=== PATIENT | female | born 1985 | race Caucasian/White ===

== ENCOUNTER 2019-11-02 12:10 | Outpatient (CLI) | payer OTHER, SELFPAY ==
[2019-11-02 14:41] LABS: Free T4 Free Thyroxine Reflex 0.89 ng/dL (0.78-2.19)
[2019-11-02 15:44] LABS: Total Triiodothyronine (T3) 1.73 NG/ML (0.97-1.69)
== END 2019-11-02 12:11 | disposition home or self-care (01) ==
DX: E03.9 Hypothyroidism, unspecified (principal)
CPT/HCPCS: 36415; 84439; 84443; 84480

== ENCOUNTER 2019-12-25 09:03 | Outpatient (CLI) | payer OTHER, SELFPAY ==
[2019-12-25 09:28] LABS: Basophils Absolute Auto 0.1 K/mm3 (0.0-0.1); Basophils Percent Auto 0.9 % (0.2-1.2); Eosinophils Absolute Auto 0.2 K/mm3 (0-0.3); Eosinophils Percent Auto 1.4 % (0-4.4); Hematocrit 41.9 % (37.0-47.0); Hemoglobin 14.2 g/dL (12.0-15.0); Immature Granulocyte Absolute 0.04 K/mm3 (0.00-0.031); Immature Granulocyte Percent A 0.4 % (0-0.5); Lymphocytes Absolute Auto 3.52 K/mm3 (0.9-3.2); Lymphocytes Percent Auto 31.2 % (18.3-44.2); Mean Corpuscular HGB Conc 33.9 g/dl (32-36); Mean Corpuscular Hemoglobin 28.9 pg (26-34); Mean Corpuscular Volume 85.2 fl (80-100); Mean Platelet Volume 9.5 fl (7.4-10.4); Monocytes Percent Auto 9.2 % (2.6-8.5); Neutrophils Absolute Auto 6.4 K/mm3 (1.3-6.7); Neutrophils Percent Auto 56.9 % (45.5-73.1); Platelet Count Result 228 k/mm3 (150-375); Red Blood Count 4.92 M/mm3 (4.2-5.4); Red Cell Distribution Width 12.7 % (11.5-14.5); White Blood Count 11.3 K/mm3 (4.5-10.0)
[2019-12-25 09:39] LABS: Cholesterol 202 mg/dL (0-200); HDL Direct 36 mg/dL; Magnesium 2.1 mg/dL (1.6-2.3); Triglycerides 351 mg/dL (<150)
[2019-12-25 09:51] LABS: LDL Cholesterol Direct 115 mg/dL
[2019-12-25 10:49] LABS: Folic Acid > 20.0 ng/mL (2.76->20)
[2019-12-27 20:02] LABS: FSH 1.9 mIU/mL (***); LH 2.9 mIU/mL (***); Progesterone 18.1 ng/mL (***)
[2019-12-28 03:41] LABS: Sex Hormone Binding Globulin 45 nmol/L (17-124)
[2019-12-28 04:29] LABS: Thyroid Peroxidase Antibodies <1 IU/mL (<9)
[2019-12-29 08:40] LABS: T3 Reverse 13 ng/dL (8-25)
[2019-12-29 13:27] LABS: Testosterone Free 3.8 pg/mL (0.1-6.4); Testosterone Total 36 ng/dL (2-45)
[2019-12-31 17:28] LABS: Estradiol, Ultrasensitive 104 pg/mL
== END 2019-12-25 09:04 | disposition home or self-care (01) ==
PROVIDERS: Visit Provider Family Medicine
DX: E03.9 Hypothyroidism, unspecified (principal); N99.89 Other postprocedural complications and disorders of genitourinary system; Z98.51 Tubal ligation status; R53.83 Other fatigue; Z79.899 Other long term (current) drug therapy; E66.3 Overweight; R79.89 Other specified abnormal findings of blood chemistry
CPT/HCPCS: 36415; 80061; 82607; 82670; 82746; 83001; 83002; 83735; 84144; 84270; 84402; 84403; 84443; 84482; 85025; 86376

== ENCOUNTER 2019-12-29 16:07 | Outpatient (CLI) | payer OTHER, SELFPAY ==
[2019-12-29 19:21] LABS: Free T4 Free Thyroxine 0.86 ng/mL (0.78-2.19); Vitamin D 25 Hydroxy 44.9 ng/mL
[2020-01-03 05:56] LABS: Triiodothyronine T3 Free 2.7 pg/mL (2.3-4.2)
== END 2019-12-29 16:08 | disposition home or self-care (01) ==
PROVIDERS: Visit Provider Family Medicine
DX: E03.9 Hypothyroidism, unspecified (principal); E66.3 Overweight; R53.83 Other fatigue; R79.89 Other specified abnormal findings of blood chemistry; G25.81 Restless legs syndrome
CPT/HCPCS: 36415; 82306; 84439; 84481

== ENCOUNTER → 2020-01-19 12:03 | Outpatient (CLI) | payer OTHER, SELFPAY ==
--- NOTE | ~2020-01-19 | XR_ITS ---
EXAMINATION: XR wrist RT w scaphoid DATE: 01/19/2020 12:32 INDICATION: Right wrist pain. TECHNIQUE: 5 views of right wrist were obtained. COMPARISON: None. FINDINGS: Bone alignment is normal. No fracture. Joint spaces are well maintained. IMPRESSION: 1. Normal right wrist. Reviewed, dictated and finalized at location A. IMPRESSION: 1. Normal right wrist.
== END ==
PROVIDERS: PCP Family Medicine; Visit Provider Family Medicine
DX: M25.531 Pain in right wrist (principal)
CPT/HCPCS: 73110

== ENCOUNTER 2020-02-02 08:45 | Outpatient (CLI) | payer OTHER, SELFPAY ==
[2020-02-02 09:12] LABS: Basophils Absolute Auto 0.1 K/mm3 (0.0-0.1); Basophils Percent Auto 0.8 % (0.2-1.2); Eosinophils Absolute Auto 0.1 K/mm3 (0-0.3); Eosinophils Percent Auto 1.3 % (0-4.4); Hematocrit 42.9 % (37.0-47.0); Hemoglobin 14.5 g/dL (12.0-15.0); Immature Granulocyte Absolute 0.02 K/mm3 (0.00-0.031); Immature Granulocyte Percent A 0.3 % (0-0.5); Lymphocytes Absolute Auto 2.74 K/mm3 (0.9-3.2); Lymphocytes Percent Auto 36.2 % (18.3-44.2); Mean Corpuscular HGB Conc 33.8 g/dl (32-36); Mean Corpuscular Hemoglobin 28.4 pg (26-34); Mean Corpuscular Volume 84.1 fl (80-100); Mean Platelet Volume 9.6 fl (7.4-10.4); Monocytes Absolute Auto 0.7 K/mm3 (0.1-0.6); Monocytes Percent Auto 9.4 % (2.6-8.5); Neutrophils Absolute Auto 3.9 K/mm3 (1.3-6.7); Platelet Count Result 261 k/mm3 (150-375); Red Cell Distribution Width 12.9 % (11.5-14.5); White Blood Count 7.6 K/mm3 (4.5-10.0)
[2020-02-02 09:28] LABS: Alanine Aminotransferase 21 U/L (4-35); Albumin Level 4.3 g/dL (3.5-5.1); Alkaline Phosphatase 87 U/L (38-126); Aspartate Amino Transferase 27 U/L (14-36); Bilirubin,Total 0.3 mg/dL (0.2-1.3); Blood Urea Nitrogen 11 mg/dL (7-17); Calcium 8.9 mg/dL (8.4-10.2); Carbon Dioxide 22 mmol/L (22-30); Chloride 109 mmol/L (98-107); Cholesterol 153 mg/dL (0-200); Estimated Glomerular Filt Rate > 60; Glucose 89 mg/dL (65-105); HDL Direct 33 mg/dL; Potassium 3.9 mmol/L (3.4-5.0); Sodium 138 mmol/L (137-145); Triglycerides 200 mg/dL (<150)
[2020-02-02 09:38] LABS: LDL Cholesterol Direct 90 mg/dL
[2020-02-02 13:22] LABS: Rheumatoid Factor < 8.6 IU/ML (<12)
[2020-02-02 13:32] LABS: Free T4 Free Thyroxine 1.26 ng/mL (0.78-2.19)
[2020-02-02 14:05] LABS: Thyroid Stimulating Hormone 0.287 uIU/mL (0.465-4.680)
[2020-02-04 21:56] LABS: Triiodothyronine T3 Free 3.7 pg/mL (2.3-4.2)
[2020-02-05 07:26] LABS: T3 Reverse 16 ng/dL (8-25)
[2020-02-05 22:18] LABS: Anti Cyclic Citrullinated Pept <16 Units (<20)
[2020-02-06 05:26] LABS: Thyroid Peroxidase Antibodies <1 IU/mL (<9)
== END 2020-02-02 08:46 | disposition home or self-care (01) ==
PROVIDERS: Visit Provider Family Medicine
DX: E06.3 Autoimmune thyroiditis (principal); Z79.899 Other long term (current) drug therapy
CPT/HCPCS: 36415; 80053; 80061; 84439; 84443; 84481; 84482; 85025; 86038; 86200; 86376; 86430

== ENCOUNTER 2020-02-04 15:39 | Outpatient (CLI) | payer OTHER, SELFPAY ==
--- NOTE | ~2020-02-04 | US_ITS ---
US thyroid INDICATION: Nontoxic goiter. TECHNIQUE: Real-time sonographic images of the thyroid gland were obtained. COMPARISON: No prior studies for comparison. FINDINGS: The right thyroid lobe measures 4.6 x 1 x 1.2 cm. The left thyroid lobe measures 4.3 x 1.2 x 1.2 cm. There is normal echotexture and echogenicity throughout the thyroid gland. No discrete nod ules identified. Normal vascular flow is present. IMPRESSION: 1. Normal thyroid without discrete nodule or abnormal vascularity. Reviewed, dictated and finalized at location A.
== END 2020-02-04 15:40 | disposition home or self-care (01) ==
PROVIDERS: Visit Provider Internal Medicine Endocrinology, Diabetes & Metabolism
DX: E04.9 Nontoxic goiter, unspecified (principal)
CPT/HCPCS: 76536

== ENCOUNTER → 2020-03-07 09:30 | Outpatient (CLI) | payer OTHER, SELFPAY ==
--- NOTE | ~2020-03-07 | XR_ITS ---
XR abdomen/kub 1V 03/07/2020 09:46 Indication: Right flank pain. History of stones. Procedure: KUB Comparison: 06/27/2018 Findings: There are right renal stones. There is a calcification measuring 2-3 mm at the level of L3, suspicious for UPJ stone. There are left pelvic phleboliths. No acute osseous abnormality. Impression: 1: Possible 2-3 mm right UPJ stone. 2: Right nephrolithiasis. Reviewed, dictated and finalized at location B. Impression: 1: Possible 2-3 mm right UPJ stone. 2: Right nephrolithiasis.
== END ==
PROVIDERS: PCP Family Medicine; Visit Provider Family Medicine
DX: N20.0 Calculus of kidney (principal)
CPT/HCPCS: 74018

== ENCOUNTER 2020-03-22 06:52 | Outpatient (CLI) | payer OTHER, SELFPAY ==
--- NOTE | ~2020-03-22 | MR_ITS ---
EXAMINATION: MR wrist RT wo con DATE: 03/22/2020 07:51 INDICATION: Right wrist pain. TECHNIQUE: Magnetic resonance imaging (MRI) of the wrist was performed without intravenous contrast. Sequences performed include coronal T1-weighted FSE, coronal PD-weighted FS FSE, axial PD-weighted FS FSE, axial PD-weighted FSE, sagittal PD-weighted FSE, and sagittal PD-weighted FS FSE. COMPARISON: Right wrist radiographs 01/19/2020 FINDINGS: Intrinsic ligaments: The scapholunate ligament and lunotriquetral ligament are normal. Triangular fibrocartilage complex (TFCC): There is a partial tear of triangular fibrocartilage at its distal surface. There is soft tissue nichelle a around the ulnar styloid. Extensor wrist: There is mild tendinopathy of the extensor carpi ulnaris. The other extensor tendons are normal. Flexor wrist: The flexor tendons are normal. Median nerve is normal. Guyon's canal: Ulnar nerve is normal. Bones/other: Bone alignment is normal. No fracture. Bone marrow signal intensity is normal. IMPRESSION: 1. Partial tear of triangular fibrocartilage at its distal surface. 2. Mild tendinopathy of the extensor carpi ulnaris. Reviewed, dictated and finalized at location A.
== END 2020-03-22 06:53 | disposition home or self-care (01) ==
PROVIDERS: PCP Family Medicine; Visit Provider Family Medicine
DX: M25.539 Pain in unspecified wrist (principal); S63.501A Unspecified sprain of right wrist, initial encounter
CPT/HCPCS: 73221

== ENCOUNTER 2020-04-14 16:36 | Outpatient (CLI) | payer OTHER, SELFPAY ==
[2020-04-14 17:26] LABS: Basophils Absolute Auto 0.1 K/mm3 (0.0-0.1); Basophils Percent Auto 0.8 % (0.2-1.2); Eosinophils Absolute Auto 0.1 K/mm3 (0-0.3); Eosinophils Percent Auto 0.9 % (0-4.4); Hematocrit 41.9 % (37.0-47.0); Hemoglobin 14.2 g/dL (12.0-15.0); Immature Granulocyte Absolute 0.03 K/mm3 (0.00-0.031); Immature Granulocyte Percent A 0.3 % (0-0.5); Lymphocytes Absolute Auto 2.96 K/mm3 (0.9-3.2); Lymphocytes Percent Auto 28.9 % (18.3-44.2); Mean Corpuscular HGB Conc 33.9 g/dl (32-36); Mean Corpuscular Hemoglobin 28.3 pg (26-34); Mean Corpuscular Volume 83.6 fl (80-100); Mean Platelet Volume 9.7 fl (7.4-10.4); Monocytes Absolute Auto 0.8 K/mm3 (0.1-0.6); Monocytes Percent Auto 8.2 % (2.6-8.5); Neutrophils Absolute Auto 6.2 K/mm3 (1.3-6.7); Neutrophils Percent Auto 60.9 % (45.5-73.1); Platelet Count Result 263 k/mm3 (150-375); Red Blood Count 5.01 M/mm3 (4.2-5.4); Red Cell Distribution Width 12.2 % (11.5-14.5); White Blood Count 10.2 K/mm3 (4.5-10.0)
[2020-04-14 17:40] LABS: Alanine Aminotransferase 14 U/L (4-35); Albumin Level 4.1 g/dL (3.5-5.1); Alkaline Phosphatase 93 U/L (38-126); Anion Gap 9 mmol/L (8-16); Aspartate Amino Transferase 19 U/L (14-36); Bilirubin,Total < 0.1 mg/dL (0.2-1.3); Blood Urea Nitrogen 15 mg/dL (7-17); Calcium 8.9 mg/dL (8.4-10.2); Carbon Dioxide 24 mmol/L (22-30); Chloride 106 mmol/L (98-107); Estimated Glomerular Filt Rate > 60; Glucose 91 mg/dL (65-105); Potassium 3.7 mmol/L (3.4-5.0); Sodium 139 mmol/L (137-145)
[2020-04-14 18:10] LABS: Free T4 Free Thyroxine 0.88 ng/mL (0.78-2.19); Vitamin D 25 Hydroxy 47.6 ng/mL
[2020-04-14 18:11] LABS: Thyroid Stimulating Hormone 0.293 uIU/mL (0.465-4.680)
[2020-04-14 18:46] LABS: Folic Acid 7.1 ng/mL (2.76->20)
[2020-04-20 05:33] LABS: Triiodothyronine T3 Free 2.4 pg/mL (2.3-4.2)
[2020-04-20 08:03] LABS: T3 Reverse 15 ng/dL (8-25)
== END 2020-04-14 16:37 | disposition home or self-care (01) ==
PROVIDERS: PCP Family Medicine; Visit Provider Family Medicine
DX: E03.9 Hypothyroidism, unspecified (principal); E66.3 Overweight; G47.33 Obstructive sleep apnea (adult) (pediatric); R00.2 Palpitations; R53.83 Other fatigue; Z82.62 Family history of osteoporosis; Z79.899 Other long term (current) drug therapy; G25.81 Restless legs syndrome
CPT/HCPCS: 36415; 80053; 82306; 82607; 82746; 84439; 84443; 84481; 84482; 85025

== ENCOUNTER 2020-04-26 11:42 | Outpatient (CLI) | payer OTHER, SELFPAY ==
--- NOTE | ~2020-04-26 | MR_ITS ---
EXAMINATION: MR brain/brain stem wo/w con DATE: 04/26/2020 12:56 INDICATION: Hypothyroidism. Headache. TECHNIQUE: Magnetic resonance imaging (MRI) of the brain and brainstem was performed without and with 14 mL MultiHance intravenous contrast. Whole-brain sequences included sagittal T1-weighted FSE, axia l diffusion-weighted FS EPI, axial T2*-weighted GRE, axial T2-weighted FLAIR Propeller, and axial T2- weighted Propeller. Small cpdlh-dh-ywqu sequences included sagittal and coronal T1-weighted FSE cente red at the pituitary. Postcontrast sequences included small wxtvz-nm-sfce coronal T1-weighted FSE in a time course and sagittal T1-weighted FSE and whole-brain axial T1-weighted FSE. Apparent diffusion coefficient (ADC) maps were created. COMPARISON: None. FINDINGS: The pituitary is normal in size with height of 4 mm and concave superior margin. The infund ibulum is at the midline. There is no intracranial hemorrhage, acute infarction, or abnormal intracra nial mass lesion. The ventricles are normal in size. There is a trace right mastoid effusion. The par anasal sinuses are clear. The orbits are normal. IMPRESSION: 1. Normal brain. Normal pituitary. Reviewed, dictated and finalized at location A.
== END 2020-04-26 11:43 | disposition home or self-care (01) ==
PROVIDERS: PCP Family Medicine; Visit Provider Family Medicine
DX: E03.9 Hypothyroidism, unspecified (principal); E34.9 Endocrine disorder, unspecified
CPT/HCPCS: 70553; A9577

== ENCOUNTER 2020-05-24 09:05 | Outpatient (CLI) | payer OTHER, SELFPAY ==
[2020-05-24 09:22] LABS: Basophils Absolute Auto 0.1 K/mm3 (0.0-0.1); Basophils Percent Auto 0.7 % (0.2-1.2); Eosinophils Absolute Auto 0.1 K/mm3 (0-0.3); Eosinophils Percent Auto 1.2 % (0-4.4); Hematocrit 41.4 % (37.0-47.0); Immature Granulocyte Absolute 0.02 K/mm3 (0.00-0.031); Immature Granulocyte Percent A 0.2 % (0-0.5); Lymphocytes Absolute Auto 3.24 K/mm3 (0.9-3.2); Lymphocytes Percent Auto 33.4 % (18.3-44.2); Mean Corpuscular HGB Conc 33.8 g/dl (32-36); Mean Corpuscular Hemoglobin 28.5 pg (26-34); Mean Corpuscular Volume 84.3 fl (80-100); Mean Platelet Volume 9.2 fl (7.4-10.4); Monocytes Absolute Auto 0.9 K/mm3 (0.1-0.6); Monocytes Percent Auto 8.8 % (2.6-8.5); Neutrophils Absolute Auto 5.4 K/mm3 (1.3-6.7); Neutrophils Percent Auto 55.7 % (45.5-73.1); Platelet Count Result 256 k/mm3 (150-375); Red Blood Count 4.91 M/mm3 (4.2-5.4); Red Cell Distribution Width 12.6 % (11.5-14.5); White Blood Count 9.7 K/mm3 (4.5-10.0)
[2020-05-24 12:23] LABS: Add Urine Microscopic? NO; Appearance Urine Clear (Clear); Bilirubin Urine Negative (Negative); Blood Urine Negative (Negative); Color Urine Yellow (Yellow); Glucose Urine UA Negative (Negative); Ketones Urine Negative (Negative); Leukocyte Esterase Ur Negative LEU/UL (Negative); Nitrate Urine Negative (Negative); Protein Urine Negative (Negative); Specific Grav Ur 1.013 (1.001-1.035); Urobilinogen Urine Negative mg/dL (<2.0)
[2020-05-24 12:28] LABS: Alanine Aminotransferase 14 U/L (4-35); Albumin Level 4.1 g/dL (3.5-5.1); Alkaline Phosphatase 97 U/L (38-126); Anion Gap 10 mmol/L (8-16); Aspartate Amino Transferase 21 U/L (14-36); Bilirubin,Total 0.3 mg/dL (0.2-1.3); Blood Urea Nitrogen 7 mg/dL (7-17); Calcium 9.4 mg/dL (8.4-10.2); Carbon Dioxide 25 mmol/L (22-30); Chloride 105 mmol/L (98-107); Estimated Glomerular Filt Rate > 60; Glucose 88 mg/dL (65-105); Potassium 4.3 mmol/L (3.4-5.0); Sodium 140 mmol/L (137-145)
[2020-05-24 12:45] LABS: Free T4 Free Thyroxine 0.93 ng/mL (0.78-2.19)
[2020-05-24 12:58] LABS: Thyroid Stimulating Hormone 0.399 uIU/mL (0.465-4.680)
[2020-05-27 07:32] LABS: FSH 8.9 mIU/mL (***); Triiodothyronine T3 Free 2.9 pg/mL (2.3-4.2)
== END 2020-05-24 09:06 | disposition home or self-care (01) ==
LOC: ANHLAB 09:07
PROVIDERS: PCP Family Medicine; Visit Provider Family Medicine
DX: E03.9 Hypothyroidism, unspecified (principal); E66.3 Overweight; R00.2 Palpitations; R53.83 Other fatigue; G25.81 Restless legs syndrome; Z79.899 Other long term (current) drug therapy
CPT/HCPCS: 36415; 80053; 81003; 83001; 84439; 84443; 84481; 85025

== ENCOUNTER 2020-05-27 09:19 | Outpatient (CLI) | payer OTHER, SELFPAY | END 2020-05-27 09:20 | disposition home or self-care (01) | LOC: ANHAUDIO 09:21 | PROVIDERS: PCP Family Medicine; Visit Provider Otolaryngology | DX: H93.11 Tinnitus, right ear (principal); H93.8X1 Other specified disorders of right ear; H91.93 Unspecified hearing loss, bilateral | CPT/HCPCS: 92557; 92567 ==

== ENCOUNTER 2020-06-10 08:01 | Outpatient (CLI) | payer OTHER, SELFPAY ==
--- NOTE | ~2020-06-10 | MM_ITS ---
EXAMINATION: MM screening stevie BI w josué HISTORY: Screening TECHNIQUE: Craniocaudal and mediolateral oblique 3-D tomosynthesis images were obtained and synthetic 2-D images were generated. CAD analysis was submitted and interpreted. COMPARISON: Comparison to multiple prior studies sequentially, with oldest reviewed study dated 01/18. BREAST PARENCHYMAL COMPOSITION: The breasts are heterogeneously dense, which may obscure small masses . FINDINGS: There is no evidence of suspicious mass, calcification, or architectural distortion to sugg est malignancy in either breast. There has been no suspicious interval change. IMPRESSION: 1. No mammographic evidence of malignancy. 2. Recommend routine screening mammography in one year. BI-RADS Category 1: Negative Reviewed, dictated and finalized at location A.
== END 2020-06-10 08:02 | disposition home or self-care (01) ==
LOC: ANHIMG 08:03
PROVIDERS: PCP Family Medicine; Visit Provider Obstetrics & Gynecology
DX: Z12.31 Encounter for screening mammogram for malignant neoplasm of breast (principal)
CPT/HCPCS: 77063; 77067

== ENCOUNTER 2020-07-15 08:23 | Outpatient (CLI) | payer OTHER, SELFPAY ==
[2020-07-15 08:35] LABS: Basophils Absolute Auto 0.1 K/mm3 (0.0-0.1); Basophils Percent Auto 0.9 % (0.2-1.2); Eosinophils Absolute Auto 0.1 K/mm3 (0-0.3); Hematocrit 42.3 % (37.0-47.0); Immature Granulocyte Absolute 0.02 K/mm3 (0.00-0.031); Immature Granulocyte Percent A 0.3 % (0-0.5); Lymphocytes Absolute Auto 2.68 K/mm3 (0.9-3.2); Lymphocytes Percent Auto 34.9 % (18.3-44.2); Mean Corpuscular HGB Conc 33.1 g/dl (32-36); Mean Corpuscular Hemoglobin 28.1 pg (26-34); Mean Corpuscular Volume 84.8 fl (80-100); Mean Platelet Volume 9.3 fl (7.4-10.4); Monocytes Absolute Auto 0.6 K/mm3 (0.1-0.6); Monocytes Percent Auto 8.1 % (2.6-8.5); Neutrophils Absolute Auto 4.2 K/mm3 (1.3-6.7); Neutrophils Percent Auto 54.8 % (45.5-73.1); Platelet Count Result 255 k/mm3 (150-375); Red Blood Count 4.99 M/mm3 (4.2-5.4); Red Cell Distribution Width 12.2 % (11.5-14.5); White Blood Count 7.7 K/mm3 (4.5-10.0)
[2020-07-15 12:40] LABS: Cholesterol 181 mg/dL (0-200); HDL Direct 35 mg/dL; Triglycerides 374 mg/dL (<150)
[2020-07-15 12:51] LABS: LDL Cholesterol Direct 96 mg/dL
[2020-07-15 13:02] LABS: Vitamin D 25 Hydroxy 48.4 ng/mL
[2020-07-15 13:46] LABS: Folic Acid 13.4 ng/mL (2.76->20)
[2020-07-15 15:16] LABS: Free T4 Free Thyroxine 1.19 ng/mL (0.78-2.19)
[2020-07-15 16:35] LABS: Alanine Aminotransferase 14 U/L (4-35); Albumin Level 4.3 g/dL (3.5-5.1); Alkaline Phosphatase 91 U/L (38-126); Anion Gap 11 mmol/L (8-16); Aspartate Amino Transferase 21 U/L (14-36); Bilirubin,Total 0.3 mg/dL (0.2-1.3); Blood Urea Nitrogen 10 mg/dL (7-17); Calcium 9.5 mg/dL (8.4-10.2); Carbon Dioxide 22 mmol/L (22-30); Chloride 108 mmol/L (98-107); Estimated Glomerular Filt Rate > 60; Glucose 92 mg/dL (65-105); Potassium 4.3 mmol/L (3.4-5.0); Sodium 141 mmol/L (137-145)
[2020-07-21 12:20] LABS: Triiodothyronine T3 Free 2.8 pg/mL (2.3-4.2)
[2020-07-26 07:43] LABS: T3 Reverse 17 ng/dL (8-25)
== END 2020-07-15 08:24 | disposition home or self-care (01) ==
PROVIDERS: PCP Family Medicine; Visit Provider Family Medicine
DX: Z51.81 Encounter for therapeutic drug level monitoring (principal); Z79.899 Other long term (current) drug therapy; G25.81 Restless legs syndrome; R53.83 Other fatigue; E78.5 Hyperlipidemia, unspecified; E03.9 Hypothyroidism, unspecified
CPT/HCPCS: 36415; 80053; 80061; 82306; 82607; 82746; 84439; 84443; 84481; 84482; 85025

== ENCOUNTER 2020-08-23 14:00 | Outpatient (RCR) | payer OTHER, SELFPAY ==
--- NOTE | 2020-07-18 17:46 | PTOPEVAL ---
PHYSICAL THERAPY EVALUATION AND PLAN OF CARE Thank you for referring Sammi Carnes to [facility].? The patient is scheduled to be seen for therapy? 2x/week for 4 weeks. Please review, sign, date and return this plan of care REINIER. I agree with and certify that the following plan of care is medically necessary. Referring Physician Date Attending Provider: Elkin Esquivel, DO Evaluation Information Problem Diagnosis cervicalgia, migraines Onset chronic Subjective Information reports chronic headaches even Query Text:As Reported By Patient/ as she was growing up. She Family has neck pain with the migraines and she does have increased tension and what she would call a tension headache with migraine. States that once the migraine starts, it is worse every day until it stops and it will cause photo and phonophobia. States that her eyes will be affected and her balance will even be affected when her tension and migraines are bad. She does have a regular daily headache besides the migraine. Pain Assessment Timing of Pain Assessment Self Report Pain Assessment Bilateral Spine, Cervical Reported Pain Level 3 Pain Description Aching,Dull,Tightness Pain Frequency Chronic,Continuous Lowest Pain Intensity 1 Greatest Pain Intensity 9 Other Pain Aggravating Factors sleeping with the wrong pillow Pain Score Pain Score 3: Self Report Interventions Used Interventions Used By Clinicians Dry Needling,Exercise,Manual Therapy Techniques Cervical and Lumbar ROM Cervical ROM Cervical Flexion (0-60) 26 Query Text:Active in Degrees Cervical Extension (0-70) 60 Query Text:Active in Degrees Cervical Rotation Right (0-90) 61 Query Text:Active in Degrees Cervical Rotation Left (0-90) 60 Query Text:Active in Degrees Upper Extremity Range of Motion General Upper Extremity Range of Motion Gross Upper Extremity Range of Motion decreased end range elevation Comments and abduction; excessive shoulder pronation and winging with shoulder internal rotation behind the back Upper Extremity Muscle Strength Testing General Upper Extremity Strength Gross Upper Extremity Strength Comments bilateral flexion/abduction: 4 -/5
--- NOTE | 2020-08-04 12:26 | PCPTNOTE ---
Patient called & cancelled scheduled appointment this date due to work.
--- NOTE | 2020-08-23 14:30 | PTOPEVAL ---
PHYSICAL THERAPY DISCHARGE NOTE Thank you for referring Sammi Carnes to [facility].? Please review, sign, date and return this plan of care REINIER. I agree with and certify that the following plan of care is medically necessary. Referring Physician Date Attending Provider: Elkin Esquivel, DO Discharge Diagnosis cervicalgia, migraines Onset chronic Subjective Information reports that previously she Query Text:As Reported By Patient/ was experiencing almost a Family constant headaches and it is much improved from that with only occasional headaches. She feels like she is able to continue with her HEP and continue progressing to improve symptoms. Self Report Pain Assessment Bilateral Spine, Cervical Reported Pain Level 1 Pain Description Aching,Dull,Tightness Pain Frequency Chronic,Continuous Pain Score Pain Score 1: Self Report Interventions Used Interventions Used By Clinicians Exercise,Manual Therapy Techniques Cervical and Lumbar ROM Cervical ROM Cervical Flexion (0-60) 45 Query Text:Active in Degrees Cervical Extension (0-70) 60 Query Text:Active in Degrees Cervical Rotation Right (0-90) 61 Query Text:Active in Degrees Cervical Rotation Left (0-90) 60 Query Text:Active in Degrees Upper Extremity Range of Motion General Upper Extremity Range of Motion Gross Upper Extremity Range of Motion decreased end range elevation Comments and abduction; improved shoulder IR behind back Upper Extremity Muscle Strength Testing General Upper Extremity Strength Gross Upper Extremity Strength Comments bilateral flexion/abduction: 4/5 IR/ER at neutral: 5/5 Muscle Length Testing Latissmus Dorsi Muscle Length (R) Moderate Tightness,(L) Moderate Tightness Upper Trapezius Muscle Length (R) Mild Tightness,(L) Mild Tightness Levaetor Scapulae Muscle Length (R) Mild Tightness,(L) Mild Tightness Shoulder Internal Rotators Muscle Length (R) Mild Tightness,(L) Mild Tightness Pectoralis Major Muscle Length (R) Mild Tightness,(L) Mild Tightness Pectoralis Minor Muscle Length (R) Mild Tightness,(L) Mild Tightness Posture Sitting Position Head/C-Spine Posture Extended Thoracic Spine Posture Increased Kyphosis Shoulder Posture (L) Rounded,(R) Rounded Scapula Posture (L)
== END 2020-10-03 08:02 | disposition home or self-care (01) ==
LOC: ANHPT 14:00
PROVIDERS: PCP Family Medicine; Visit Provider Family Medicine
DX: G43.809 Other migraine, not intractable, without status migrainosus (principal); M54.2 Cervicalgia
CPT/HCPCS: 97110; 97140; 97161

== ENCOUNTER 2020-08-30 08:35 | Outpatient (CLI) | payer OTHER, SELFPAY ==
[2020-08-30 13:05] LABS: Alanine Aminotransferase 19 U/L (4-35); Albumin Level 4.2 g/dL (3.5-5.1); Alkaline Phosphatase 86 U/L (38-126); Anion Gap 8 mmol/L (8-16); Aspartate Amino Transferase 26 U/L (14-36); Bilirubin,Total 0.4 mg/dL (0.2-1.3); Blood Urea Nitrogen 7 mg/dL (7-17); Calcium 9.4 mg/dL (8.4-10.2); Carbon Dioxide 29 mmol/L (22-30); Chloride 102 mmol/L (98-107); Estimated Glomerular Filt Rate > 60; Glucose 92 mg/dL (65-105); Potassium 4.2 mmol/L (3.4-5.0); Sodium 139 mmol/L (137-145)
[2020-08-30 13:28] LABS: Free T4 Free Thyroxine 1.19 ng/mL (0.78-2.19)
[2020-08-30 13:41] LABS: Thyroid Stimulating Hormone 0.562 uIU/mL (0.465-4.680)
[2020-08-30 14:15] LABS: Folic Acid 14.7 ng/mL (2.76->20)
[2020-09-03 14:54] LABS: Triiodothyronine T3 Free 3.2 pg/mL (2.3-4.2)
[2020-09-04 05:00] LABS: Thyroid Peroxidase Antibodies <1 IU/mL (<9)
== END 2020-08-30 08:36 | disposition home or self-care (01) ==
LOC: ANHLAB 08:37
PROVIDERS: PCP Family Medicine; Visit Provider Internal Medicine Endocrinology, Diabetes & Metabolism
DX: E06.3 Autoimmune thyroiditis (principal); R53.83 Other fatigue
CPT/HCPCS: 36415; 80053; 82607; 82746; 84439; 84443; 84481; 86376

== ENCOUNTER 2020-10-17 12:24 | Outpatient (CLI) | payer OTHER, SELFPAY ==
--- NOTE | ~2020-10-17 | XR_ITS ---
XR mandible min 4V DATE: 10/17/2020 12:45 INDICATION: Right temporal mandibular joint pain TECHNIQUE: 4 views COMPARISON: None FINDINGS: No fracture or dislocation or bone destruction of the mandible is evident. IMPRESSION: No significant abnormality Reviewed, dictated and finalized at location A. OUT MARKER IMPRESSION: No significant abnormality
== END 2020-10-17 12:25 | disposition home or self-care (01) ==
PROVIDERS: PCP Family Medicine; Visit Provider Family Medicine
DX: M26.629 Arthralgia of temporomandibular joint, unspecified side (principal)
CPT/HCPCS: 70110

== ENCOUNTER 2020-10-20 08:53 | Outpatient (CLI) | payer OTHER, SELFPAY ==
--- NOTE | ~2020-10-20 | CT_ITS ---
EXAMINATION: CT soft tissue neck wo con EXAM DATE: 10/20/2020 09:26 INDICATION: K11.20 - Sialoadenitis, unspecified. TECHNIQUE: Spiral CT of the neck was performed without contrast. Axial, coronal and sagittal images were reviewed. The dose-length product (DLP) for this examination was 498.86 mGy-cm. The exposure was tailored according to patient size (auto mA exposure control), and iterative reconstruction (ASIR ) was used as additional dose reduction technique. There is no prior study for comparison. FINDINGS: The thyroid gland is unremarkable. The submandibular and parotid glands are symmetric, no sialolithiasis. There is no cervical lymphadenopathy. There are no masses identified. The supe rior mediastinum is unremarkable. The airway is unremarkable. Parapharyngeal and pre-glottic fat planes are preserved. Limited evaluation of cervical vessels on this noncontrast study. The orbit s are unremarkable. Visualized sinuses and mastoid air cells are well aerated. Lung apices are cl ear. There is mild cervical arthropathy. IMPRESSION: Normal CT neck examination. Reviewed, dictated and finalized at location B. SETTER IMPRESSION: Normal CT neck examination.
--- NOTE | ~2020-10-20 | CT_ITS ---
EXAMINATION: CT abdomen wo con EXAM DATE: 10/20/2020 09:26 INDICATION: R10.9 - Unspecified abdominal pain . TECHNIQUE: Spiral CT of the abdomen was performed without contrast. Axial, coronal and sagittal diana ges were reviewed. The dose-length product (DLP) for this examination was 245.76 mGy-cm. The exposu re was tailored according to patient size (auto mA exposure control), and iterative reconstruction (A SIR) was used as additional dose reduction technique. There is no prior study for comparison. FINDINGS: The liver, spleen, adrenal glands and pancreas are unremarkable. There are cholecystectomy clips. Cluster of right inferior calyceal stones measuring about 6 mm. Patulous right renal pelvis i s unchanged compared to prior study. No hydroureter along its imaged proximal course. There is no ret roperitoneal lymphadenopathy. Small umbilical fat-containing hernia. The stomach and small bowel are unremarkable. There is expected amount of colonic stool. No free i ntraperitoneal gas. The heart is normal in size. There are no pericardial or pleural effusions. T here are small left lower lobe peripheral groundglass opacities, likely acute pneumonitis, acute infe ctious process and possibly COVID pneumonia. There are no osteoblastic or osteolytic lesions identif ied. IMPRESSION: 1. Small regions left basilar groundglass peripheral opacity likely acute infection. Possible COVID pneumonia. 2. Right calyceal stones. 3. Small umbilical hernia. I discussed left basilar pneumonia with Niyah in the office of the ordering clinician Elkin quintana DO at 10/20/2020 09:59 COMPUTER TECH. Reviewed, dictated and finalized at location B. UTER TECH IMPRESSION: 1. Small regions left basilar groundglass peripheral opacity likely acute infe ction. Possible COVID pneumonia. 2. Right calyceal stones. 3. Small umbilical hernia. I discussed left basilar pneumonia with Niyah in the office of the ordering cl injacinda Esquivel DO at 10/20/2020 09:59 COMPUTER TECH.
== END 2020-10-20 08:54 | disposition home or self-care (01) ==
LOC: ANHIMG 08:59
PROVIDERS: PCP Family Medicine; Visit Provider Family Medicine
DX: K42.9 Umbilical hernia without obstruction or gangrene (principal); N20.0 Calculus of kidney
CPT/HCPCS: 70490; 74150

== ENCOUNTER 2020-10-25 09:01 | Outpatient (CLI) | payer OTHER, SELFPAY ==
--- NOTE | ~2020-10-25 | MR_ITS ---
EXAMINATION: MR chest wo/w con DATE: 10/25/2020 10:49 INDICATION: Chronic left-sided brachial plexus pain including left-sided chest, shoulder, arm and jim d numbness.. TECHNIQUE: Magnetic resonance imaging (MRI) of the brachial plexus was performed without and with 14 mL Multihance intravenous contrast. Sequences included axial, sagittal and coronal T1-weighted FSE, coronal T2-weighted FS FSE, coronal and sagittal fluid sensitive FSE STIR and postcontrast axial, sag ittal and coronal T1-weighted FS FSE. COMPARISON: Neck CT dated 10/20/2020 FINDINGS: 10 degrees levoscoliosis measured between T1 and T6. Mild cervical spondylosis with negligible centra l canal stenosis resulting from mild disc bulges at C3-C4 through C6-C7. Cord signal in the cervical and visualized upper thoracic spine is normal. No neural foraminal stenosis. The cervical transverse processes are normal with no cervical ribs. The left brachial plexus appears unremarkable extending f rom the roots through the trunks in the scalene triangle and in the more distal divisions and cords w ith normal signal with no abnormal thickening or enhancement. No impinging or infiltrating masses or fluid collections identified along the course of the brachial plexus. Normal sized and appearing conf luent nodes at the neck and left axilla. The glenohumeral and acromioclavicular joints appear normal. Normal muscle bulk and signal at the left shoulder girdle. Thyroid is normal. Visualized superior me diastinum is unremarkable. IMPRESSION: 1. Normal brachial plexus with no abnormal masses or other impinging lesions. 2. Mild upper thoracic levoscoliosis and mild cervical spondylosis. Reviewed, dictated and finalized at location B. UNT PROCESSOR
[2020-10-25 09:49] LABS: Estimated Glomerular Filt Rate > 60
== END 2020-10-25 09:02 | disposition home or self-care (01) ==
PROVIDERS: PCP Family Medicine; Visit Provider Family Medicine
DX: G54.0 Brachial plexus disorders (principal); M54.12 Radiculopathy, cervical region; M41.84 Other forms of scoliosis, thoracic region; M47.812 Spondylosis without myelopathy or radiculopathy, cervical region
CPT/HCPCS: 71552; A9577

== ENCOUNTER 2020-10-31 10:50 | Outpatient (CLI) | payer OTHER, SELFPAY ==
--- NOTE | ~2020-10-31 | XR_ITS ---
EXAMINATION: XR chest 2V DATE: 10/31/2020 10:59 INDICATION: Pneumonia, unspecified organism TECHNIQUE: PA and lateral views of the chest are obtained. COMPARISON: 04/08/2019; CT, 10/20/2020 FINDINGS: The lungs are free of acute opacities. There is no pleural effusion or pneumothorax. The ca rdiomediastinal silhouette is normal. The visualized bones and soft tissues are unremarkable. Cholecy stectomy clips are noted in the right upper quadrant. IMPRESSION: 1. No acute cardiopulmonary abnormality. Reviewed, dictated and finalized at location A. DRINIER MACHINE OPERATOR
== END 2020-10-31 10:51 | disposition home or self-care (01) ==
PROVIDERS: PCP Family Medicine; Visit Provider Family Medicine
DX: E03.9 Hypothyroidism, unspecified (principal); G43.809 Other migraine, not intractable, without status migrainosus; G89.29 Other chronic pain; J18.9 Pneumonia, unspecified organism; K11.20 Sialoadenitis, unspecified; K42.9 Umbilical hernia without obstruction or gangrene; K59.00 Constipation, unspecified; M25.512 Pain in left shoulder; M26.621 Arthralgia of right temporomandibular joint; M54.12 Radiculopathy, cervical region; M62.00 Separation of muscle (nontraumatic), unspecified site; R10.9 Unspecified abdominal pain; R53.83 Other fatigue
CPT/HCPCS: 71046

== ENCOUNTER 2020-11-02 08:43 | Outpatient (CLI) | payer OTHER, SELFPAY ==
[2020-11-02 09:18] LABS: Basophils Absolute Auto 0.1 K/mm3 (0.0-0.1); Eosinophils Absolute Auto 0.1 K/mm3 (0-0.3); Eosinophils Percent Auto 1.5 % (0-4.4); Hematocrit 40.6 % (37.0-47.0); Hemoglobin 13.6 g/dL (12.0-15.0); Immature Granulocyte Absolute 0.01 K/mm3 (0.00-0.031); Immature Granulocyte Percent A 0.1 % (0-0.5); Lymphocytes Absolute Auto 2.85 K/mm3 (0.9-3.2); Lymphocytes Percent Auto 36.1 % (18.3-44.2); Mean Corpuscular HGB Conc 33.5 g/dl (32-36); Mean Corpuscular Hemoglobin 28.3 pg (26-34); Mean Corpuscular Volume 84.6 fl (80-100); Mean Platelet Volume 9.5 fl (7.4-10.4); Monocytes Absolute Auto 0.8 K/mm3 (0.1-0.6); Monocytes Percent Auto 9.7 % (2.6-8.5); Neutrophils Absolute Auto 4.1 K/mm3 (1.3-6.7); Neutrophils Percent Auto 51.6 % (45.5-73.1); Platelet Count Result 226 k/mm3 (150-375); Red Cell Distribution Width 12.7 % (11.5-14.5); White Blood Count 7.9 K/mm3 (4.5-10.0)
[2020-11-02 10:40] LABS: Alanine Aminotransferase 26 U/L (4-35); Albumin Level 3.9 g/dL (3.5-5.1); Alkaline Phosphatase 83 U/L (38-126); Anion Gap 4 mmol/L (8-16); Aspartate Amino Transferase 26 U/L (14-36); Bilirubin,Total 0.2 mg/dL (0.2-1.3); Blood Urea Nitrogen 11 mg/dL (7-17); Calcium 8.9 mg/dL (8.4-10.2); Carbon Dioxide 30 mmol/L (22-30); Chloride 105 mmol/L (98-107); Estimated Glomerular Filt Rate > 60; Glucose 85 mg/dL (65-105); Iron 53 ug/dL (37-170); Sodium 139 mmol/L (137-145)
[2020-11-02 10:47] LABS: Percent Iron Saturation 20 % (20-50)
[2020-11-02 10:50] LABS: Erythrocyte Sedimentation Rate 20 mm/hr (0-20)
[2020-11-02 10:52] LABS: Add Urine Microscopic? NO
[2020-11-02 10:58] LABS: Potassium 4.4 mmol/L (3.4-5.0); Vitamin D 25 Hydroxy 35.1 ng/mL
[2020-11-02 11:00] LABS: Color Urine Yellow (Yellow)
[2020-11-02 11:01] LABS: Appearance Urine Clear (Clear); Specific Grav Ur 1.015 (1.001-1.035)
[2020-11-02 11:02] LABS: Blood Urine Negative (Negative); Glucose Urine UA Negative (Negative); Ketones Urine Negative (Negative); Protein Urine Negative (Negative)
[2020-11-02 11:03] LABS: Bilirubin Urine Negative (Negative); Leukocyte Esterase Ur Negative LEU/UL (Negative); Nitrate Urine Negative (Negative); Urobilinogen Urine 0.2 mg/dL (<2.0)
[2020-11-02 11:11] LABS: Thyroid Stimulating Hormone 0.497 uIU/mL (0.465-4.680)
[2020-11-02 11:46] LABS: Folic Acid 12.8 ng/mL (2.76->20)
[2020-11-02 12:28] LABS: Cholesterol 154 mg/dL (0-200); HDL Direct 37 mg/dL; Triglycerides 358 mg/dL (<150)
[2020-11-02 12:29] LABS: Rheumatoid Factor < 8.6 IU/ML (<12)
[2020-11-02 12:34] LABS: D Dimer 0.27 ug/mL (<0.48)
[2020-11-02 12:36] LABS: LDL Cholesterol Direct 78 mg/dL
[2020-11-02 12:37] LABS: Troponin I < 0.012 ng/mL (0.000-0.034)
[2020-11-05 04:30] LABS: CA-125 6 U/mL (<35)
[2020-11-05 06:35] LABS: FSH 3.4 mIU/mL (***); Progesterone 3.7 ng/mL (***)
[2020-11-06 11:51] LABS: T3 Reverse 13 ng/dL (8-25)
[2020-11-06 13:24] LABS: Testosterone Free 6.8 pg/mL (0.1-6.4); Testosterone Total 47 ng/dL (2-45)
[2020-11-09 18:27] LABS: Estradiol, Ultrasensitive 105 pg/mL
== END 2020-11-02 08:44 | disposition home or self-care (01) ==
PROVIDERS: PCP Family Medicine; Visit Provider Family Medicine
DX: Z00.00 Encounter for general adult medical examination without abnormal findings (principal); J18.9 Pneumonia, unspecified organism; K59.00 Constipation, unspecified; K42.9 Umbilical hernia without obstruction or gangrene; M54.12 Radiculopathy, cervical region; M25.512 Pain in left shoulder; G89.29 Other chronic pain; K11.20 Sialoadenitis, unspecified; R10.9 Unspecified abdominal pain; M62.00 Separation of muscle (nontraumatic), unspecified site; G43.809 Other migraine, not intractable, without status migrainosus; M26.621 Arthralgia of right temporomandibular joint; E03.9 Hypothyroidism, unspecified; R53.83 Other fatigue; Z79.899 Other long term (current) drug therapy
CPT/HCPCS: 36415; 80053; 80061; 81003; 82306; 82607; 82670; 82746; 83001; 83540; 83550; 84144; 84402; 84403; 84443; 84481; 84482; 84484; 85025; 85380; 85652; 86038; 86140; 86304; 86430

== ENCOUNTER 2020-11-18 16:00 | Outpatient (CLI) | payer OTHER, SELFPAY ==
--- NOTE | ~2020-11-18 | US_ITS ---
EXAMINATION: US pelvic complete w TV EXAM DATE: 11/18/2020 16:46 INDICATION: Menorrhagia, heavy periods. TECHNIQUE: Pelvic transabdominal and transvaginal sonogram was performed. There are multiple graysca le and Doppler images available for interpretation. Comparison is made to prior examination from 04/09. FINDINGS: Uterus measures uterus measures 9.3 x 4.5 x 4.1 cm, is retroverted and morphologically nor mal. Endometrial stripe measures 3 mm, within normal limits. There is no free pelvic fluid. Right adnexa: The ovary measures 2.0 x 2.7 x 2.0 cm with multiple small peripheral follicles. Ovarian vascular flow confirmed. Left adnexa: The ovary measures 2.2 x 2.6 x 1.6 cm with multiple small peripheral follicles. Ovarian vascular flow confirmed. IMPRESSION: 1. Ovaries normal in size but with multiple small peripheral follicles, possible polycystic ovarian syndrome. Reviewed, dictated and finalized at location G. IMPRESSION: 1. Ovaries normal in size but with multiple small peripheral follicles, possib le polycystic ovarian syndrome.
== END 2020-11-18 16:01 | disposition home or self-care (01) ==
PROVIDERS: PCP Family Medicine; Visit Provider Obstetrics & Gynecology
DX: N92.0 Excessive and frequent menstruation with regular cycle (principal)
CPT/HCPCS: 76830; 76856

== ENCOUNTER 2021-03-03 08:24 | Outpatient (CLI) | payer OTHER, SELFPAY ==
[2021-03-03 11:02] LABS: Alanine Aminotransferase 20 U/L (4-35); Albumin Level 4.1 g/dL (3.5-5.1); Alkaline Phosphatase 90 U/L (38-126); Anion Gap 10 mmol/L (8-16); Aspartate Amino Transferase 23 U/L (14-36); Bilirubin,Total 0.3 mg/dL (0.2-1.3); Blood Urea Nitrogen 14 mg/dL (7-17); Calcium 9.3 mg/dL (8.4-10.2); Carbon Dioxide 25 mmol/L (22-30); Chloride 104 mmol/L (98-107); Estimated Glomerular Filt Rate > 60; Glucose 83 mg/dL (65-105); Potassium 4.5 mmol/L (3.4-5.0); Sodium 139 mmol/L (137-145)
[2021-03-03 11:16] LABS: Free T4 Free Thyroxine 1.16 ng/mL (0.78-2.19)
[2021-03-03 11:32] LABS: Thyroid Stimulating Hormone 0.627 uIU/mL (0.465-4.680)
[2021-03-07 02:39] LABS: Insulin Level Total 20.3 uIU/mL (<=19.6)
[2021-03-07 13:29] LABS: Triiodothyronine T3 Free 3.1 pg/mL (2.3-4.2)
[2021-03-08 12:58] LABS: Testosterone Total 47 ng/dL (2-45)
[2021-03-08 14:03] LABS: DHEA-Sulfate 150 mcg/dL (23-266)
== END 2021-03-03 08:25 | disposition home or self-care (01) ==
LOC: ANHLAB 08:33
PROVIDERS: PCP Family Medicine; Visit Provider Internal Medicine Hematology & Oncology
DX: E03.9 Hypothyroidism, unspecified (principal); E28.2 Polycystic ovarian syndrome
CPT/HCPCS: 36415; 80053; 82627; 83525; 84402; 84403; 84439; 84443; 84481

== ENCOUNTER 2021-05-30 09:49 | Outpatient (CLI) | payer OTHER, SELFPAY ==
--- NOTE | ~2021-05-30 | US_ITS ---
EXAMINATION: US pelvic complete w TV EXAM DATE: 05/30/2021 10:32 INDICATION: Pelvic and perineal pain. TECHNIQUE: Pelvic transabdominal and transvaginal sonogram was performed. There are multiple graysca le and Doppler images available for interpretation. Comparison is made to prior examination from 11/18. FINDINGS: Uterus measures 5.9 x 4.6 x 4.1 cm, is retroverted and morphologically normal. Endometria l stripe measures 6 mm, within normal limits. There is no free pelvic fluid. Right adnexa: The ovary measures 1.9 x 2.5 x 2.8 cm and is morphologically normal. Ovarian vascular f low confirmed. Left adnexa: The ovary measures 1.8 x 1.6 x 3.1 cm and is morphologically normal. Ovarian vascular fl ow confirmed. IMPRESSION: 1. Unremarkable pelvic ultrasound exam. Reviewed, dictated and finalized at location A.
== END 2021-05-30 09:50 | disposition home or self-care (01) ==
LOC: ANHIMG 09:54
PROVIDERS: PCP Physician Assistant Medical; Visit Provider Obstetrics & Gynecology
DX: R10.2 Pelvic and perineal pain (principal)
CPT/HCPCS: 76830; 76856

== ENCOUNTER 2021-07-18 14:19 | Outpatient (CLI) | payer OTHER, SELFPAY ==
--- NOTE | ~2021-07-18 | CT_ITS ---
EXAMINATION: CT soft tissue neck w con DATE: 07/18/2021 15:00 INDICATION: Localized swelling, mass, and lump in neck. TECHNIQUE: Computed tomography (CT) of the neck was performed with 75 mL Omnipaque-350 intravenous co ntrast. Automated exposure control and iterative reconstruction technique were employed. The dose-kelvin gth product was 455.43 mGy-cm. COMPARISON: Neck CT 10/20/2020 FINDINGS: There are no pathologically enlarged lymph nodes. The cervical carotid arteries and vertebr al arteries are normal. The pharyngeal mucosal space is normal. The paranasal sinuses are clear. Ther e is a trace right mastoid effusion. There is mild cervical spondylosis. IMPRESSION: 1. No abnormal mass or lymphadenopathy. Reviewed, dictated and finalized at location B. SPERSON JEWELRY
== END 2021-07-18 14:20 | disposition home or self-care (01) ==
LOC: ANHIMG 14:24
PROVIDERS: PCP Physician Assistant Medical; Visit Provider Internal Medicine Endocrinology, Diabetes & Metabolism
DX: R22.1 Localized swelling, mass and lump, neck (principal)
CPT/HCPCS: 70491; Q9967

== ENCOUNTER 2021-07-27 08:00 | Outpatient (CLI) | payer OTHER, SELFPAY ==
--- NOTE | ~2021-07-27 | MMUS_ITS ---
EXAMINATION: MM diagnostic stevie BI w josué, US breast BI complete HISTORY: Right breast lump TECHNIQUE: ML, MLO and craniocaudal full field and spot 3-D tomosynthesis images of both breasts were performed and synthetic 2-D images were generated. CAD analysis was submitted and interpreted. High resolution bilateral complete breast ultrasound including all 4 quadrants and subareolar areas was pe rformed. COMPARISON: 06/10/2020, 05/26/2019, 01/18/2018 bilateral screening mammogram examinations BREAST PARENCHYMAL COMPOSITION: The breasts are heterogeneously dense, which may obscure small masses . FINDINGS: MAMMOGRAPHIC FINDINGS: No reproducible mass or architectural distortion, malignant calcification, skin thickening or retract ion of either breast or significant new or developing density is detected. Bilateral complete breast ultrasound was performed for right breast lump and to evaluate for any mass that might be obscured b y the heterogeneously dense fibroglandular stroma. ULTRASOUND: Right breast: 6:00 1 cm from nipple: 5.2 x 3.7 x 3.36 mm cyst 12:00 1 cm from nipple: 2.6 x 2.4 x 5.4 mm cyst No suspicious mass or shadowing is detected. Left breast: No suspicious mass or shadowing is detected. IMPRESSION: 1. Benign findings; no mammographic evidence of malignancy 2. Routine mammographic screening is recommended. BI-RADS Category 2: Benign finding(s). Reviewed, dictated and finalized at location A. RNAL INVESTIGATOR IMPRESSION: 1. Benign findings; no mammographic evidence of malignancy 2. Routine mammographic screening is recommended. BI-RADS Category 2: Benign finding(s).
== END 2021-07-27 08:01 | disposition home or self-care (01) ==
PROVIDERS: PCP Physician Assistant Medical; Visit Provider Obstetrics & Gynecology
DX: N60.01 Solitary cyst of right breast (principal)
CPT/HCPCS: 76641; 77062; 77066; G0279

== ENCOUNTER 2021-09-05 14:14 | Outpatient (CLI) | payer OTHER, SELFPAY ==
--- NOTE | ~2021-09-05 | MR_ITS ---
EXAMINATION: MR cervical spine wo con DATE: 09/05/2021 15:20 INDICATION: Neck pain. TECHNIQUE: Magnetic resonance imaging (MRI) of the cervical spine was performed without intravenous c ontrast. Sequences included sagittal T2-weighted FSE, sagittal T2-weighted FS FSE, sagittal T1-weight ed FSE, axial MERGE, and axial T2-weighted FSE. COMPARISON: Cervical spine MRI 11/10/2018 FINDINGS: There is 6 degrees dextrocurvature of cervical spine. There is kyphosis of cervical spine. Vertebral body heights are normal. There is mildly decreased disc height at C4-C5 and C5-C6. The spin al cord signal intensity is normal. The following disc levels are specifically discussed: C2-C3: The disc does not extend beyond the endplate margin. There is no uncovertebral joint osteoarth ritis. There is no facet joint osteoarthritis. There is no neural foraminal stenosis. There is no lyric tral canal stenosis. C3-C4: The disc does not extend beyond the endplate margin. There is mild bilateral uncovertebral colin nt osteoarthritis. There is mild bilateral facet joint osteoarthritis. There is no neural foraminal s tenosis. There is no central canal stenosis. C4-C5: The disc does not extend beyond the endplate margin. There is no uncovertebral joint osteoarth ritis. There is mild bilateral facet joint osteoarthritis. There is no neural foraminal stenosis. The re is no central canal stenosis. C5-C6: The disc is bulging. There is mild bilateral uncovertebral joint osteoarthritis. There is no f acet joint osteoarthritis. There is no neural foraminal stenosis. There is mild central canal stenosi s. C6-C7: The disc is bulging. There is mild bilateral uncovertebral joint osteoarthritis. There is mild left facet joint osteoarthritis. There is no neural foraminal stenosis. There is mild central canal stenosis. C7-T1: The disc does not extend beyond the endplate margin. There is no uncovertebral joint osteoarth ritis. There is mild right and moderate left facet joint osteoarthritis. There is no neural foraminal stenosis. There is no central canal stenosis. IMPRESSION: 1. Mild cervical spondylosis, slightly worsened from 11/10/2018. Reviewed, dictated and finalized at location B. OSITE LAMINATOR
== END 2021-09-05 14:15 | disposition home or self-care (01) ==
PROVIDERS: PCP Physician Assistant Medical; Visit Provider Psychiatry & Neurology Neurology
DX: M47.813 Spondylosis without myelopathy or radiculopathy, cervicothoracic region (principal); M48.03 Spinal stenosis, cervicothoracic region
CPT/HCPCS: 72141

== ENCOUNTER 2021-10-17 11:11 | Outpatient (CLI) | payer OTHER, SELFPAY ==
[2021-10-17 11:37] LABS: Hemoglobin 13.8 g/dL (12.0-15.0); Mean Corpuscular HGB Conc 32.1 g/dl (32-36); Mean Corpuscular Hemoglobin 28.9 pg (26-34); Mean Corpuscular Volume 90.1 fl (80-100); Mean Platelet Volume 9.5 fl (7.4-10.4); Platelet Count Result 263 k/mm3 (150-375); Red Blood Count 4.77 M/mm3 (4.2-5.4); Red Cell Distribution Width 12.3 % (11.5-14.5)
[2021-10-17 16:00] LABS: Cholesterol 168 mg/dL (0-200); HDL Direct 24 mg/dL; Magnesium 2.2 mg/dL (1.6-2.3); Triglycerides 264 mg/dL (<150)
[2021-10-17 16:11] LABS: Alanine Aminotransferase 35 U/L (4-35); Albumin Level 4.4 g/dL (3.5-5.1); Alkaline Phosphatase 103 U/L (38-126); Anion Gap 8 mmol/L (8-16); Aspartate Amino Transferase 45 U/L (14-36); Bilirubin,Total 0.2 mg/dL (0.2-1.3); Blood Urea Nitrogen 5 mg/dL (7-17); Calcium 9.3 mg/dL (8.4-10.2); Carbon Dioxide 25 mmol/L (22-30); Chloride 107 mmol/L (98-107); Estimated Glomerular Filt Rate > 60; Glucose 88 mg/dL (65-110); LDL Cholesterol Direct 102 mg/dL; Potassium 4.2 mmol/L (3.4-5.0); Sodium 140 mmol/L (137-145)
[2021-10-17 16:18] LABS: Free T4 Free Thyroxine 1.08 ng/mL (0.78-2.19); Vitamin D 25 Hydroxy 36.1 ng/mL
[2021-10-17 19:12] LABS: Hemoglobin A1C 4.7 % (<5.7)
[2021-10-17 20:48] LABS: Folic Acid 17.1 ng/mL (2.76->20)
[2021-10-19 21:22] LABS: DHEA-Sulfate 186 mcg/dL (23-266)
[2021-10-20 06:10] LABS: Triiodothyronine T3 Free 2.6 pg/mL (2.3-4.2)
[2021-10-20 16:15] LABS: Insulin Level Total 16.2 uIU/mL (<=19.6); Thyroid Peroxidase Antibodies <1 IU/mL (<9)
[2021-10-21 13:04] LABS: Testosterone Free 4.9 pg/mL (0.1-6.4); Testosterone Total 38 ng/dL (2-45)
== END 2021-10-17 11:12 | disposition home or self-care (01) ==
LOC: ANHLAB 11:12
PROVIDERS: Internal Medicine Endocrinology, Diabetes & Metabolism; PCP Physician Assistant Medical; Visit Provider Internal Medicine Hematology & Oncology
DX: E03.9 Hypothyroidism, unspecified (principal); E28.2 Polycystic ovarian syndrome; E55.9 Vitamin D deficiency, unspecified; Z51.81 Encounter for therapeutic drug level monitoring; Z79.899 Other long term (current) drug therapy; R53.83 Other fatigue; R51.9 Headache, unspecified
CPT/HCPCS: 36415; 80053; 80061; 82306; 82607; 82627; 82746; 83036; 83525; 83735; 84402; 84403; 84439; 84443; 84481; 85027; 86376

== ENCOUNTER 2021-10-19 14:26 | Outpatient (CLI) | payer OTHER, SELFPAY ==
--- NOTE | ~2021-10-19 | MR_ITS ---
EXAMINATION: MR brain/brain stem wo con DATE: 10/19/2021 15:09 INDICATION: Headache. TECHNIQUE: Magnetic resonance imaging (MRI) of the brain and brainstem was performed without intraven ous contrast. Sequences included sagittal and axial T1-weighted FSE, axial diffusion-weighted FS EPI, axial T2*-weighted GRE, axial T2-weighted FLAIR Propeller, and axial T2-weighted Propeller. Apparent diffusion coefficient (ADC) maps were created. COMPARISON: Brain MRI 04/26/2020 FINDINGS: There is no intracranial hemorrhage, acute infarction, or abnormal intracranial mass lesion . The ventricles are normal in size. The paranasal sinuses are clear. The orbits are normal. There is a trace right mastoid effusion. IMPRESSION: 1. Normal brain. Reviewed, dictated and finalized at location A. TEAM LEAD IMPRESSION: 1. Normal brain.
== END 2021-10-19 14:27 | disposition home or self-care (01) ==
LOC: ANHIMG 14:33
PROVIDERS: PCP Physician Assistant Medical; Visit Provider Physician Assistant Medical
DX: R51.0 Headache with orthostatic component, not elsewhere classified (principal)
CPT/HCPCS: 70551

== ENCOUNTER 2022-01-09 08:58 | Outpatient (CLI) | payer OTHER, SELFPAY ==
[2022-01-09 12:40] LABS: Alanine Aminotransferase 34 U/L (6-35); Albumin Level 4.2 g/dL (3.5-5.1); Alkaline Phosphatase 84 U/L (38-126); Anion Gap 5 mmol/L (8-16); Aspartate Amino Transferase 36 U/L (14-36); Bilirubin,Total 0.4 mg/dL (0.2-1.3); Blood Urea Nitrogen 8 mg/dL (7-17); Carbon Dioxide 30 mmol/L (22-30); Chloride 101 mmol/L (98-107); Estimated Glomerular Filt Rate > 60; Glucose 84 mg/dL (65-110); Potassium 4.1 mmol/L (3.4-5.0); Sodium 136 mmol/L (137-145)
[2022-01-09 12:53] LABS: Free T4 Free Thyroxine 1.15 ng/mL (0.78-2.19)
[2022-01-09 13:20] LABS: Basophils Absolute Auto 0.1 K/mm3 (0.0-0.1); Basophils Percent Auto 0.7 % (0.2-1.2); Eosinophils Absolute Auto 0.2 K/mm3 (0-0.3); Eosinophils Percent Auto 2.2 % (0-4.4); Hematocrit 43.4 % (37.0-47.0); Hemoglobin 14.1 g/dL (12.0-15.0); Immature Granulocyte Absolute 0.02 K/mm3 (0.00-0.031); Immature Granulocyte Percent A 0.2 % (0-0.5); Lymphocytes Absolute Auto 2.64 K/mm3 (0.9-3.2); Lymphocytes Percent Auto 32.2 % (18.3-44.2); Mean Corpuscular HGB Conc 32.5 g/dl (32-36); Mean Corpuscular Hemoglobin 28.1 pg (26-34); Mean Corpuscular Volume 86.5 fl (80-100); Mean Platelet Volume 10.4 fl (7.4-10.4); Monocytes Absolute Auto 0.6 K/mm3 (0.1-0.6); Monocytes Percent Auto 7.7 % (2.6-8.5); Neutrophils Absolute Auto 4.7 K/mm3 (1.3-6.7); Platelet Count Result 277 k/mm3 (150-375); Red Blood Count 5.02 M/mm3 (4.2-5.4); Red Cell Distribution Width 12.5 % (11.5-14.5); White Blood Count 8.2 K/mm3 (4.5-10.0)
[2022-01-12 04:56] LABS: Triiodothyronine T3 Free 3.2 pg/mL (2.3-4.2)
[2022-01-12 05:40] LABS: DHEA-Sulfate 178 mcg/dL (23-266)
[2022-01-13 16:25] LABS: Testosterone Free 5.7 pg/mL (0.1-6.4); Testosterone Total 38 ng/dL (2-45)
== END 2022-01-09 08:59 | disposition home or self-care (01) ==
PROVIDERS: PCP Physician Assistant Medical
DX: E03.9 Hypothyroidism, unspecified (principal); E28.2 Polycystic ovarian syndrome
CPT/HCPCS: 36415; 80053; 82627; 84402; 84403; 84439; 84443; 84481; 85025

== ENCOUNTER → 2022-01-26 07:49 | Outpatient (CLI) | payer OTHER, SELFPAY ==
--- NOTE | 2022-01-31 14:24 | WPDHOMESLEEP ---
Sleep Study - Home Unattended Date of Study: 01/26/22 Ordering Provider: Flor Rodriguez, PA Interpreting Provider: Abena Cabrera MD Home Sleep Study Type: Watch PAT Height: 1.6 m Weight: 81.647 kg Body Mass Index: 31.8 Neck Circumference (inches): 14 Reason for Sleep Study Hypersomnolence Prior home sleep test on July 01, 2019 showing mild obstructive sleep apnea with an AHI of 6.7, lowest oxygen desaturation 88% Sleep History Sammi Carnes is a 36 year old female with a history of excessive daytime sleepiness. On July 01, 2019 she had a home sleep test for fatigue, headache, poor concentration and restless sleep at night. Her BMI was 28.3. Her home sleep test showed an apnea-hypopnea index of 6.7 with the minimum saturation of 88%. An office visit on 11/07/2021 indicates that she has fatigue and wants a sleep study. [facility] Past Medical History Medical History (Updated 01/31/22 @ 14:31 by Abena Cabrera MD) Abnormal Pap smear of cervix 2010 [facility] -HPV Brachial neuritis Encounter for IUD insertion 11/16/10 Encounter for IUD removal 09/25/12 GERD (gastroesophageal reflux disease) Gestational hypertension Headache, migraine IBS (irritable bowel syndrome) Irregular heart rhythm Kidney stones Lipidemia ERMA (obstructive sleep apnea) Screening mammogram, encounter for Thyroid disease Surgical History Surgical History History of hysteroscopy 03/04/19 hscope d&c--pelvic pain, menometrorrhagia, dysmenorrhea History of laparoscopy 03/04/19 dx lscope--enterolysis Hx laparoscopic cholecystectomy Family History Family History Father Family history of elevated blood lipids Family history of lung cancer Heart disease Hemophilia Mother Family history of elevated blood lipids Breast cancer Grandparent Diabetes mellitus Heart disease Son Hemophilia Sibling Cheri's thyroiditis sister Other Asthma Family history of Alzheimer's disease Family history of blood dyscrasia Family history of cardiovascular disease Family history of hepatitis Family history of mental disorder Social History Social History Smoking status: Never smoker Alcohol intake: never Substance use: never Additional living arrangements comments: spouse 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 [employer] Gender identity (if verbalized by the patient): Female Sexual Orientation (if Verbalized by the Patient): Straight or Heterosexual Medications Home Medications Medication Instructions Recorded Confirmed Type lorazepam 0.5 mg tablet 0.5 mg PO DAILY PRN anxiety #30 05/05/21 11/09/21 Rx tabs levothyroxine 88 mcg tablet 88 mcg PO DAILY 11/09/21 11/09/21 History (Synthroid) Sleep Procedure The sleep study was completed using WorkspaceT a technically adequate device with seven channels: peripheral arterial tone, actigraphy, body position, snore, respiratory movement, pulse oximetry, sleep staging, and heart rate. Prior to using the device, the patient received verbal and written instructions for its application and was provided with the help desk phone number for additional telephonic instruction with 24-hour availability of qualified personnel to answer questions. Sleep Architecture The recording duration is 7 hours 24 minutes. The total sleep time is 5 hours 37 minutes. Sleep latency was 21 minutes. REM latency is short at 59 minutes consistent with hypersomnolence. Sleep efficiency is 76%. Sleep architecture showed 59% light sleep, 14% deep sleep and 25% stage REM. She had 13 awakenings. Respiratory Analysis The apnea-hypopnea index is elevated at 8.3 associated with 37 events. The central apnea-hypopnea index is 0.2 associated with 1 event. There is no evidence o
[2022-01-31 14:37] VITALS: BMI 31.8
--- NOTE | 2022-07-25 16:11 | SLEEP ---
pt did not want to return for pap titration
== END ==
PROVIDERS: PCP Physician Assistant Medical; Visit Provider Physician Assistant Medical
DX: G47.33 Obstructive sleep apnea (adult) (pediatric) (principal); Z68.31 Body mass index [BMI] 31.0-31.9, adult
CPT/HCPCS: 95800

== ENCOUNTER 2022-04-12 10:06 | Outpatient (CLI) | payer OTHER, SELFPAY ==
--- NOTE | ~2022-04-12 | US_ITS ---
US thyroid INDICATION: Thyroid goiter TECHNIQUE: Real-time sonographic images of the thyroid gland were obtained. COMPARISON: Ultrasound dated 02/04/2020 FINDINGS: The right thyroid lobe measures 4.2 x 1.2 x 1.2 cm. The left thyroid lobe measures 4.3 x 1 x 1.2 cm. There is normal echotexture and echogenicity throughout the thyroid gland. No discrete nod ules identified. Normal vascular flow is present. IMPRESSION: 1. Normal thyroid without discrete nodule or abnormal vascularity. Reviewed, dictated and finalized at location B.
[2022-04-12 11:26] LABS: Alanine Aminotransferase 33 U/L (6-35); Albumin Level 4.2 g/dL (3.5-5.1); Alkaline Phosphatase 79 U/L (38-126); Anion Gap 8 mmol/L (8-16); Aspartate Amino Transferase 27 U/L (14-36); Bilirubin,Total 0.3 mg/dL (0.2-1.3); Blood Urea Nitrogen 9 mg/dL (7-17); Calcium 9.2 mg/dL (8.4-10.2); Carbon Dioxide 29 mmol/L (22-30); Chloride 99 mmol/L (98-107); Estimated Glomerular Filt Rate > 60; Glucose 97 mg/dL (65-110); Potassium 4.1 mmol/L (3.4-5.0); Sodium 136 mmol/L (137-145)
[2022-04-12 12:08] LABS: Free T4 Free Thyroxine 1.08 ng/mL (0.78-2.19)
[2022-04-12 12:43] LABS: Folic Acid > 20.0 ng/mL (2.76->20)
[2022-04-16 11:30] LABS: DHEA-Sulfate 156 mcg/dL (23-266); Insulin Level Total 63.5 uIU/mL (<=19.6)
[2022-04-17 03:18] LABS: Thyroid Peroxidase Antibodies <1 IU/mL (<9)
[2022-04-17 19:25] LABS: Testosterone Free 5.6 pg/mL (0.1-6.4); Testosterone Total 29 ng/dL (2-45)
[2022-04-17 20:41] LABS: Triiodothyronine T3 Free 3.1 pg/mL (2.3-4.2)
== END 2022-04-12 10:07 | disposition home or self-care (01) ==
PROVIDERS: PCP Physician Assistant Medical; Visit Provider Internal Medicine Endocrinology, Diabetes & Metabolism
DX: E04.9 Nontoxic goiter, unspecified (principal); E28.2 Polycystic ovarian syndrome; E03.9 Hypothyroidism, unspecified
CPT/HCPCS: 36415; 76536; 80053; 82607; 82627; 82746; 83525; 84402; 84403; 84439; 84443; 84481; 86376

== ENCOUNTER 2022-06-07 09:54 | Outpatient (CLI) | payer OTHER, SELFPAY ==
[2022-06-07 13:40] LABS: Free T4 Free Thyroxine 1.23 ng/mL (0.78-2.19)
[2022-06-07 13:56] LABS: Thyroid Stimulating Hormone 0.749 uIU/mL (0.465-4.680); Total Triiodothyronine (T3) 1.54 NG/ML (0.97-1.69)
[2022-06-10 07:30] LABS: FSH 1.5 mIU/mL (***)
[2022-06-10 07:32] LABS: LH 0.8 mIU/mL (***); Progesterone 0.3 ng/mL (***)
[2022-06-10 15:09] LABS: Insulin Level Total 12.1 uIU/mL (<=19.6)
[2022-06-14 07:55] LABS: Anti Nuclear Antibody Titer 1:40 (Negative)
[2022-06-17 13:45] LABS: Serotonin 85 ng/mL (56-244)
== END 2022-06-07 09:55 | disposition home or self-care (01) ==
LOC: ANHLAB 09:56
PROVIDERS: PCP Physician Assistant Medical; Visit Provider Obstetrics & Gynecology
DX: N92.6 Irregular menstruation, unspecified (principal); E28.2 Polycystic ovarian syndrome
CPT/HCPCS: 36415; 82607; 83001; 83002; 83525; 84144; 84260; 84439; 84443; 84480; 86038; 86039

== ENCOUNTER 2022-06-11 11:11 | Outpatient (CLI) | payer OTHER, SELFPAY ==
[2022-06-17 02:26] LABS: Calculated Total (E+NE) 36 mcg/24 h (26-121); Dopamine, 24hr Urine 276 mcg/24 h (52-480); Epinephrine, 24hr Urine 6 mcg/24 h (2-24); Norepinephrine, 24hr Urine 30 mcg/24 h (15-100)
== END 2022-06-11 11:12 | disposition home or self-care (01) ==
LOC: ANHLAB 11:13
PROVIDERS: PCP Physician Assistant Medical; Visit Provider Physician Assistant Medical
DX: M25.50 Pain in unspecified joint (principal); H11.1 Conjunctival degenerations and deposits; R03.0 Elevated blood-pressure reading, without diagnosis of hypertension; R23.2 Flushing; N92.6 Irregular menstruation, unspecified
CPT/HCPCS: 82384; 83497

== ENCOUNTER 2022-06-21 06:42 | Outpatient (RCR) | payer OTHER, SELFPAY | END 2022-09-04 13:48 | disposition home or self-care (01) | LOC: ANHPT 06:42 | PROVIDERS: PCP Physician Assistant Medical; Visit Provider Obstetrics & Gynecology | DX: R10.2 Pelvic and perineal pain (principal); N81.89 Other female genital prolapse | CPT/HCPCS: 99199 ==

== ENCOUNTER 2022-06-27 12:18 | Outpatient (CLI) | payer OTHER, SELFPAY ==
[2022-06-27 13:03] LABS: Basophils Absolute Auto 0.1 K/mm3 (0.0-0.1); Basophils Percent Auto 0.7 % (0.2-1.2); Eosinophils Absolute Auto 0.1 K/mm3 (0-0.3); Eosinophils Percent Auto 0.5 % (0-4.4); Hematocrit 41.8 % (37.0-47.0); Hemoglobin 14.1 g/dL (12.0-15.0); Immature Granulocyte Absolute 0.02 K/mm3 (0.00-0.031); Immature Granulocyte Percent A 0.2 % (0-0.5); Lymphocytes Percent Auto 36.4 % (18.3-44.2); Mean Corpuscular HGB Conc 33.7 g/dl (32-36); Mean Corpuscular Hemoglobin 28.4 pg (26-34); Mean Corpuscular Volume 84.3 fl (80-100); Mean Platelet Volume 9.7 fl (7.4-10.4); Monocytes Absolute Auto 0.5 K/mm3 (0.1-0.6); Monocytes Percent Auto 5.5 % (2.6-8.5); Neutrophils Absolute Auto 5.5 K/mm3 (1.3-6.7); Neutrophils Percent Auto 56.7 % (45.5-73.1); Platelet Count Result 318 k/mm3 (150-375); Red Blood Count 4.96 M/mm3 (4.2-5.4); Red Cell Distribution Width 11.9 % (11.5-14.5); White Blood Count 9.6 K/mm3 (4.5-10.0)
[2022-06-27 13:16] LABS: Rheumatoid Factor < 8.6 IU/ML (<12)
[2022-06-27 13:18] LABS: Alanine Aminotransferase 40 U/L (6-35); Albumin Level 4.5 g/dL (3.5-5.1); Alkaline Phosphatase 81 U/L (38-126); Anion Gap 12 mmol/L (8-16); Aspartate Amino Transferase 32 U/L (14-36); Bilirubin,Total 0.6 mg/dL (0.2-1.3); Blood Urea Nitrogen 8 mg/dL (7-17); CRP < 0.5 mg/dL (<1.0); Carbon Dioxide 23 mmol/L (22-30); Chloride 103 mmol/L (98-107); Estimated Glomerular Filt Rate > 60; Glucose 151 mg/dL (65-110); Potassium 3.6 mmol/L (3.4-5.0); Sodium 138 mmol/L (137-145)
[2022-06-27 14:03] LABS: Hepatitis B Surface Antigen Negative (Negative)
[2022-06-27 14:20] LABS: Hepatitis C Virus Antibody Negative (Negative)
[2022-06-27 15:15] LABS: Erythrocyte Sedimentation Rate 12 mm/hr (0-20)
[2022-06-29 14:16] LABS: NIL 0.02 IU/mL; Quantiferon TB Plus, 1T NEGATIVE (NEGATIVE); TB1-NIL 0.01 IU/mL
[2022-06-29 17:57] LABS: Hepatitis B Core Ab Total Nonreactive (Nonreactive)
[2022-06-30 12:54] LABS: Angiotensin Converting Enzyme 32.3 U/L (9-67)
[2022-06-30 20:28] LABS: Anti Cardio Antibody IgM <2.0 MPL-U/mL (<20.0); Anti Cardiolipin Antibody IgA <2.0 APL-U/mL (<20.0); Anti Cardiolipin Antibody IgG <2.0 GPL-U/mL (<20.0)
[2022-07-01 03:19] LABS: Thyroid Peroxidase Antibodies <1 IU/mL (<9)
[2022-07-01 15:21] LABS: Immunoglobulin G, Serum 1136 mg/dL (600-1640); Immunoglobulin G1 400 mg/dL (382-929); Immunoglobulin G2 551 mg/dL (241-700); Immunoglobulin G3 94 mg/dL (22-178); Immunoglobulin G4 24.5 mg/dL (4.0-86.0)
[2022-07-02 10:51] LABS: HLA B27 Negative (Negative)
[2022-07-03 19:49] LABS: G-6-PD, RBC 12.3 U/g Hgb (7.0-20.5)
== END 2022-06-27 12:19 | disposition home or self-care (01) ==
LOC: ANHLAB 12:22
PROVIDERS: PCP Physician Assistant Medical; Visit Provider Internal Medicine
DX: M06.4 Inflammatory polyarthropathy (principal); M35.01 Sjogren syndrome with keratoconjunctivitis; G47.01 Insomnia due to medical condition
CPT/HCPCS: 36415; 80053; 82164; 82784; 82787; 82955; 85025; 85652; 86038; 86140; 86146; 86147; 86376; 86430; 86480; 86704; 86800; 86803; 86812; 87340

== ENCOUNTER 2022-08-22 14:45 | Outpatient (RCR) | payer OTHER, SELFPAY ==
--- NOTE | 2022-08-10 17:46 | BUPTOPEVAL1 ---
Assessment and note entered by Glenny Hough, PT Evaluation Information Assessment Status Evaluation Diagnosis dizziness and giddiness Onset 08/09/2022 Subjective Information [place] an odd sensation yesterday at work and felt off yesterday. 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 Layed back down, felt nauseas. Got up and ate, had some water. Got up a second time and when lay down felt increased dizziness. Getting up in the morning was also dizzy. Reported Pain Level Pain Score 0: Self Report Assessment PT Clinical Summary Pt presents with new onset of dizziness flaca with looking up and down, as well as position changes supine<>sit. Demo's nystagmus with [place] Hallpike testing of left upward torsional type but has greater symptoms with right [place] Hallpike testing. Pt was treated today with Right Jl maneuver and education on precautions next 24 hours. Was also educated on left vs right inner ear BPPV and signs and symptoms. Will benefit from continued therapy to continue assessing BPPV, and treat to improve symptoms and return to PLOF Plan of Care Interventions Hot Pack/Cold Pack,Neuro Re-education,Self-Care/ Home Management These treatments will address the objective and functional deficits as defined above. The patient will be advanced safely and appropriately in order for the patient to progress towards his/her prior level of function. Additional exercises will be introduced and as well as a comprehensive home exercise program upon discharge, if needed, ?to ensure carryover of functional gains achieved in the clinic. This treatment plan has been reviewed and agreement upon by the patient.
--- NOTE | 2022-08-10 17:47 | BUPTOPEVAL1 ---
Assessment and note entered by Glenny Hough, PT Evaluation Information Assessment Status Evaluation Diagnosis dizziness and giddiness Onset 08/09/2022 Subjective Information [place] an odd sensation yesterday at work and felt off yesterday. 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 Layed back down, felt nauseas. Got up and ate, had some water. Got up a second time and when lay down felt increased dizziness. Getting up in the morning was also dizzy. Reported Pain Level Pain Score 0: Self Report Assessment PT Clinical Summary Pt presents with new onset of dizziness flaca with looking up and down, as well as position changes supine<>sit. Demo's nystagmus with [place] Hallpike testing of left upward torsional type but has greater symptoms with right [place] Hallpike testing. Pt was treated today with Right Jl maneuver and education on precautions next 24 hours. Was also educated on left vs right inner ear BPPV and signs and symptoms. Will benefit from continued therapy to continue assessing BPPV, and treat to improve symptoms and return to PLOF Plan of Care Interventions Hot Pack/Cold Pack,Neuro Re-education,Self-Care/ Home Management Treatment Frequency and 1-3x /wk x 10 visits Duration These treatments will address the objective and functional deficits as defined above. The patient will be advanced safely and appropriately in order for the patient to progress towards his/her prior level of function. Additional exercises will be introduced and as well as a comprehensive home exercise program upon discharge, if needed, ?to ensure carryover of functional gains achieved in the clinic. This treatment plan has been reviewed and agreement upon by the patient.
--- NOTE | 2022-08-29 15:18 | PTOPEVAL1 ---
Assessment and note entered by Glenny Hough, PT Assessment Status Discharge - Pt Not Present Diagnosis dizziness and giddiness Onset 08/09/2022 Assessment PT Clinical Summary Pt attended 3 sessions with Jl maneuver performed. By third session she no longer had nystagmus or vertigo symptoms with position changes. Reconnected with patient today who stated her vertigo specific symptoms remain resolved and to discharge her POC. Thus pt is being discharged from plan per request. These treatments will address the objective and functional deficits as defined above. The patient will be advanced safely and appropriately in order for the patient to progress towards his/her prior level of function. Additional exercises will be introduced and as well as a comprehensive home exercise program upon discharge, if needed, ?to ensure carryover of functional gains achieved in the clinic. This treatment plan has been reviewed and agreement upon by the patient.
== END 2022-08-29 15:26 | disposition home or self-care (01) ==
LOC: ANHHIPT 14:45
PROVIDERS: PCP Physician Assistant Medical; Visit Provider Physician Assistant Medical
DX: R42 Dizziness and giddiness (principal)
CPT/HCPCS: 97112; 97161

== ENCOUNTER 2022-10-29 10:17 | Outpatient (CLI) | payer OTHER, SELFPAY ==
--- NOTE | ~2022-10-29 | CT_ITS ---
EXAMINATION: CTA chest PE protocol DATE: 10/29/2022 11:52 INDICATION: Shortness of breath. Chest pain. TECHNIQUE: Computed tomography angiography (CTA) of the chest was performed with 100 mL Omnipaque-350 intravenous contrast timed to evaluate the pulmonary arteries. Coronal maximum intensity projection 3D-reconstructions were created by the technologist. Automated exposure control and iterative reconst ruction technique were employed. Exam dose: 366.65 mGy-cm total exam DLP. COMPARISON: 09/04/2022 2 view chest from [facility] FINDINGS: The pulmonary arteries are moderately opacified by contrast material, without evidence of a neurysm. No thoracic aortic aneurysm or dissection. No hilar or mediastinal mass lesion or lymphadenopathy. Normal heart size. No pericardial or pleural effusion. No pulmonary infiltrate or consolidation or pulmonary mass lesion is detected. Included skeletal structures are unremarkable. IMPRESSION: No evidence of pulmonary embolism Reviewed, dictated and finalized at Location [facility]. Reviewed, dictated and finalized at location B. 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
== END 2022-10-29 10:18 | disposition home or self-care (01) ==
PROVIDERS: PCP Physician Assistant Medical; Visit Provider Nurse Practitioner Family
DX: R06.02 Shortness of breath (principal)
CPT/HCPCS: 71275; Q9967

== ENCOUNTER 2022-11-07 10:19 | Outpatient (CLI) | payer OTHER, SELFPAY ==
[2022-11-07 11:16] LABS: Basophils Absolute Auto 0.1 K/mm3 (0.0-0.1); Eosinophils Absolute Auto 0.1 K/mm3 (0-0.3); Hematocrit 41.1 % (37.0-47.0); Hemoglobin 13.8 g/dL (12.0-15.0); Immature Granulocyte Absolute 0.02 K/mm3 (0.00-0.031); Immature Granulocyte Percent A 0.2 % (0-0.5); Lymphocytes Absolute Auto 3.19 K/mm3 (0.9-3.2); Lymphocytes Percent Auto 31.8 % (18.3-44.2); Mean Corpuscular HGB Conc 33.6 g/dl (32-36); Mean Corpuscular Hemoglobin 28.5 pg (26-34); Mean Corpuscular Volume 84.7 fl (80-100); Mean Platelet Volume 9.3 fl (7.4-10.4); Monocytes Absolute Auto 0.9 K/mm3 (0.1-0.6); Monocytes Percent Auto 8.9 % (2.6-8.5); Neutrophils Absolute Auto 5.7 K/mm3 (1.3-6.7); Neutrophils Percent Auto 57.1 % (45.5-73.1); Platelet Count Result 278 k/mm3 (150-375); Red Blood Count 4.85 M/mm3 (4.2-5.4); Red Cell Distribution Width 12.4 % (11.5-14.5)
[2022-11-07 16:33] LABS: Alanine Aminotransferase 28 U/L (6-35); Albumin Level 4.4 g/dL (3.5-5.1); Alkaline Phosphatase 95 U/L (38-126); Anion Gap 4 mmol/L (8-16); Aspartate Amino Transferase 26 U/L (14-36); Bilirubin,Total 0.5 mg/dL (0.2-1.3); Blood Urea Nitrogen 8 mg/dL (7-17); Calcium 9.3 mg/dL (8.4-10.2); Carbon Dioxide 30 mmol/L (22-30); Chloride 102 mmol/L (98-107); Cholesterol 199 mg/dL (0-200); Estimated Glomerular Filt Rate > 60; Glucose 82 mg/dL (65-110); HDL Direct 29 mg/dL; Potassium 4.4 mmol/L (3.4-5.0); Sodium 136 mmol/L (137-145); Triglycerides 341 mg/dL (<150)
[2022-11-07 16:43] LABS: LDL Cholesterol Direct 109 mg/dL
[2022-11-07 16:48] LABS: Vitamin D 25 Hydroxy 29.3 ng/mL
[2022-11-07 16:49] LABS: Free T4 Free Thyroxine 0.85 ng/mL (0.78-2.19)
[2022-11-07 17:43] LABS: Folic Acid 9.2 ng/mL (2.76->20)
[2022-11-10 03:40] LABS: Insulin Level Total 15.2 uIU/mL (<=19.6); Thyroid Peroxidase Antibodies <1 IU/mL (<9)
[2022-11-14 05:49] LABS: Triiodothyronine T3 Free 2.8 pg/mL (2.3-4.2)
[2022-11-21 17:26] LABS: Serotonin 31 ng/mL (56-244)
== END 2022-11-07 10:20 | disposition home or self-care (01) ==
LOC: ANHLAB 10:21
PROVIDERS: PCP Physician Assistant Medical; Visit Provider Internal Medicine Hematology & Oncology
DX: Z00.00 Encounter for general adult medical examination without abnormal findings (principal); E03.9 Hypothyroidism, unspecified; R53.83 Other fatigue; E55.9 Vitamin D deficiency, unspecified; R73.03 Prediabetes
CPT/HCPCS: 36415; 80053; 80061; 82306; 82607; 82746; 83036; 83525; 84260; 84439; 84443; 84481; 85025; 86376

== ENCOUNTER 2022-11-16 13:30 | Outpatient (RCR) | payer OTHER, SELFPAY ==
--- NOTE | 2022-09-05 15:08 | PTOPEVAL1 ---
Assessment and note entered by Glenny Hough, PT Evaluation Information Assessment Status Evaluation Diagnosis Headache, Radiculopatht unspec Onset couple years Subjective Information Pt reports also feeling lower back and pain and tingling in BLE L>R Legs just started a couple weeks ago. Has seen chiro for neck but not back. 1x weekly for 4-6 weeks and would help but when stopped chiro, pain would return. Reported Pain Level Pain Score 4,4: Self Report Assessment PT Clinical Summary Pt presents w/ c/o neck and back pain with radicular symptoms into LUE, BLE L>R. Neck pain is chronic in nature but back pain began more recently. Evaluation shows poor postures with decreased postural muscle strength, decreased ROM, leg length discrepancy with compensatory scoliotic curvatures, poor core strength and left glute med weakness. Pt also demos multiple areas of increased aresting muscle tone and tenderness. Pt will greatly benefit from physical therapy in order to address deficits, alignment, postural stability to reduce pain and symptoms. Plan of Care Interventions Electrical Stimulation,Hot Pack/Cold Pack,Manual Therapy,Neuro Re-education,Patient/Caregiver Educati,Therapeutic Activities,Therapeutic Exercise,Self-Care/Home Management,Ultrasound PT Services Indicated Yes Treatment Frequency and 1-2x weekly x 6 weeks Duration These treatments will address the objective and functional deficits as defined above. The patient will be advanced safely and appropriately in order for the patient to progress towards his/her prior level of function. Additional exercises will be introduced and as well as a comprehensive home exercise program upon discharge, if needed, ?to ensure carryover of functional gains achieved in the clinic. This treatment plan has been reviewed and agreement upon by the patient.
--- NOTE | 2022-10-17 16:29 | PTOPPROG ---
Assessment and note entered by Glenny Hough, PT Assessment Status Progress Report Diagnosis Headache, Radiculopathy left UE, low back pain and racidulopathy Onset couple years Subjective Information Reports back and LE tingling have resolved Feels 90% improved overall, cont to have tightness in neck Reports feeling like upper back needs to pop often Neck and Left UE 80% Assessment PT Clinical Summary Pt appears to have met all her goals related to her back pain and radicular pain related to her back. Pt reports feeling her cervical spine and left UE radicular issues are 80% improved but still feels tight and has tingling at times though it is less often and centralized. Pt cont to demo scalene tightness, postural deficits, left shoulder issues possibly related to cervical spine and radicular deficits. Discussed findings with patient and together decided to continue therapy focusing solely on the cervical spine. Plan of Care Interventions Electrical Stimulation,Hot Pack/Cold Pack,Manual Therapy,Neuro Re-education,Patient/Caregiver Educati,Therapeutic Activities,Therapeutic Exercise,Self-Care/Home Management,Ultrasound, Other Other Interventions Taping PT Services Indicated Yes Treatment Frequency and 2x weekly x 4 weeks Duration These treatments will address the objective and functional deficits as defined above. The patient will be advanced safely and appropriately in order for the patient to progress towards his/her prior level of function. Additional exercises will be introduced and as well as a comprehensive home exercise program upon discharge, if needed, ?to ensure carryover of functional gains achieved in the clinic. This treatment plan has been reviewed and agreement upon by the patient.
--- NOTE | 2022-11-16 14:14 | PTOPDC ---
Assessment and note entered by Glenny Hough, PT Assessment Status Discharge Diagnosis Headache, Radiculopathy left UE Onset couple years Subjective Information Pt reports doesn't really have any issues currently. States feels much better . Migraines are improved. Can't recall last time had tingling in left arm. Reported Pain Level Pain Score 0,0: Self Report Assessment PT Clinical Summary Pt reports feeling greatly improved overall. States has not had tingling in LUE recently, cervical discomfort she attributes to tension. Reports improvement in migraines as well. Pt has met her goals for cervical radiculopathy and pain, and continues to report resolution of lumbar radiculopathy and pain as well. Thus patient is being discharged at this time for meeting her goals
== END 2022-11-16 14:23 | disposition home or self-care (01) ==
LOC: ANHHIPT 13:30
PROVIDERS: PCP Physician Assistant Medical; Visit Provider Physician Assistant Medical
DX: R51.9 Headache, unspecified (principal); M54.10 Radiculopathy, site unspecified
CPT/HCPCS: 97014; 97110; 97112; 97140; 97162; G0283

== ENCOUNTER 2023-03-28 09:46 | Outpatient (CLI) | payer OTHER, SELFPAY ==
[2023-04-03 14:20] LABS: BCR/abl Prior Result Not Given
[2023-04-03 15:07] LABS: BCR/abl P190 Not Detected; BCR/abl P210 Not Detected
[2023-04-03 15:08] LABS: BCR/abl P190 Chg YES; BCR/abl P210 Chg YES
== END 2023-03-28 09:47 | disposition home or self-care (01) ==
PROVIDERS: PCP Physician Assistant Medical; Visit Provider Obstetrics & Gynecology
DX: Z84.81 Family history of carrier of genetic disease (principal)
CPT/HCPCS: 99199; 36415; 81206; 81207

== ENCOUNTER 2023-04-24 10:52 | Outpatient (CLI) | payer OTHER, SELFPAY ==
--- NOTE | ~2023-04-24 | CT_ITS ---
Non-contrast CT scan of the Abdomen and Pelvis Clinical indication: Kidney stone Technique: 2.5 mm axial scans were obtained through the abdomen and pelvis without intravenous or or al contrast. Dose reduction technique was used on this scan by utilizing automated exposure control a nd iterative reconstruction technique. The dose-length product (DLP) was 802.98 mGy-cm. COMPARISON: 10/20/2020 Findings: Images through the lung bases reveal no abnormalities. There are nonobstructing right renal stones measuring up to 7 mm. There is a probable dilated right e xtra renal pelvis, but no ureteral dilatation or rosemary intrarenal hydronephrosis. No left renal or le ft ureteral stone. No left hydronephrosis. There is diffuse fatty infiltration of the liver. Cholecystectomy clips are present. The spleen, panc reas, and adrenals appear normal. There is no aortic aneurysm. There is no evidence of bowel obstruction. Images through the pelvis were performed. There is no evidence of ascites or lymphadenopathy. Urinary bladder unremarkable. Small right ovarian cyst present. No ascites. Impression: Nonobstructing right renal calculi, as detailed above. Probable right extrarenal pelvis. Diffuse fatty infiltration of liver. Reviewed, dictated and finalized at location . Impression: Nonobstructing right renal calculi, as detailed above. Probable right extrarenal pelvis. Diffuse fatty infiltration of liver.
== END 2023-04-24 10:53 | disposition home or self-care (01) ==
PROVIDERS: PCP Physician Assistant Medical; Visit Provider Nurse Practitioner Family
DX: R10.30 Lower abdominal pain, unspecified (principal); R31.9 Hematuria, unspecified; N20.0 Calculus of kidney; K76.0 Fatty (change of) liver, not elsewhere classified
CPT/HCPCS: 74176

== ENCOUNTER 2023-05-03 10:28 | Outpatient (CLI) | payer OTHER, SELFPAY ==
[2023-05-22 20:43] LABS: Result NEGATIVE
== END 2023-05-03 10:29 | disposition home or self-care (01) ==
LOC: ANHLAB 10:28
PROVIDERS: PCP Physician Assistant Medical; Visit Provider Obstetrics & Gynecology
DX: Z12.39 Encounter for other screening for malignant neoplasm of breast (principal); Z80.3 Family history of malignant neoplasm of breast
CPT/HCPCS: 81162

== ENCOUNTER 2023-05-14 09:09 | Outpatient (CLI) | payer OTHER, SELFPAY ==
--- NOTE | ~2023-05-14 | US_ITS ---
EXAMINATION: US transvaginal DATE: 05/14/2023 10:10 INDICATION: Ovarian cysts TECHNIQUE: Multiple endovaginal sonographic images of the pelvis were obtained. COMPARISON: CT, 04/24/2023 FINDINGS: The uterus measures 7.5 x 4.3 x 5.5 cm. The endometrial complex measures 5 mm. There is a 3 .6 x 3.3 cm hypoechoic lesion of the right ovary which appears to contain thin internal reticular ech oes. The left ovary measures 3.0 x 2.0 x 1.9 cm. There is normal vascular flow in the ovaries. There is trace free fluid in the pelvis. IMPRESSION: 1. Probable hemorrhagic cyst of the right ovary. Follow-up ultrasound in 6-12 weeks is recommended. Reviewed, dictated and finalized at location L. IMPRESSION: 1. Probable hemorrhagic cyst of the right ovary. Follow-up ultrasound in 6-12 w eeks is recommended.
--- NOTE | ~2023-05-14 | US_ITS ---
US abdomen complete EXAMINATION: US Abdomen Complete INDICATION: Abdomen pain PROCEDURE: Realtime High Resolution abdomen ultrasound. COMPARISON: No prior studies for comparison FINDINGS: Gallbladder is surgically absent. Common bile duct measures 2.3 mm. Liver echotexture is increased, consistent with fatty infiltration.. Pancreas within normal limits. 11.6 Spleen is unremarkeable. Renal echotexture is within normal limits bilaterally without hydrone phrosis, contour deforming mass or renal stone. Right kidney measures 10.6 cm. Left kidney measures c m. Visualized aspects of the aorta and IVC are within normal limits. Portal vein is patent. No sonograph ic Butler's sign indicated by the technologist. IMPRESSION: 1: Hepatic steatosis Reviewed, dictated and finalized at location A. IMPRESSION: 1: Hepatic steatosis
== END 2023-05-14 09:10 | disposition home or self-care (01) ==
PROVIDERS: PCP Physician Assistant Medical; Visit Provider Nurse Practitioner Family
DX: N83.209 Unspecified ovarian cyst, unspecified side (principal); R10.9 Unspecified abdominal pain; K76.0 Fatty (change of) liver, not elsewhere classified
CPT/HCPCS: 76700; 76830

== ENCOUNTER 2023-05-17 12:15 | Outpatient (RCR) | payer OTHER, SELFPAY ==
--- NOTE | 2023-04-22 16:53 | OPREHPOC ---
Outpatient Therapy Plan of Care This is a Multidisciplinary Plan of Care that may contain components documented by all disciplines (PT, OT, and ST.) PT Problem 1 PT Problem #1 Knowledge Deficit PT Goal 1 Goal Independent with HEP Target Visit 8 PT Problem 2 PT Problem #2 Pain PT Goal 1 Goal Report no pain greater than 1/10 when sitting for 10 minutes for work related activity Target Visit 8 PT Problem 3 PT Problem #3 Impaired Strength PT Goal 1 Goal Demonstrate 5/5 strength in tyra hip flexors with no radicular pain for improved core stability with foot progression Target Visit 8 PT Problem 4 PT Problem #4 Impaired Functional Mobil PT Goal 1 Goal Patient will demonstrate ability to perform 20# lift with proper mechanics pain free PT Problem 5 PT Problem #5 Impaired Gait PT Goal 1 Goal Ambulate with even stride length bilaterally
--- NOTE | 2023-04-22 16:54 | PTOPEVAL1 ---
Assessment and note entered by Isma Gutierrez, PT Evaluation Information Assessment Status Evaluation Diagnosis Low Back Pain with Radiculopathy Onset 04/19/23 Subjective Information Patient reports that she has been tearing down a house and doing a lot of lifting and moving. Reports that she hurt herself on Saturday lifting. She has since had pain in her back and down her right leg. Pain is worse with sitting and walking. Having trouble gettin comfortable sleeping. Reported Pain Level Pain Score 4: Self Report Assessment PT Clinical Summary Patient has signs and symptoms consistent with discogenic type symptoms. She has indications of increased pain with lifting, bending, and sitting. She is currently in the acute phase and is tender with both flexion and extension. Will benefit from skilled therapy to address postural and inflammation issues. Plan of Care Interventions Electrical Stimulation,Gait Training,Manual Therapy,Mechanical Traction,Neuro Re-education, Therapeutic Activities,Therapeutic Exercise PT Services Indicated Yes Treatment Frequency and 2x/week for 4 weeks Duration These treatments will address the objective and functional deficits as defined above. The patient will be advanced safely and appropriately in order for the patient to progress towards his/her prior level of function. Additional exercises will be introduced and as well as a comprehensive home exercise program upon discharge, if needed, ?to ensure carryover of functional gains achieved in the clinic. This treatment plan has been reviewed and agreement upon by the patient.
--- NOTE | 2023-05-17 15:15 | PTOPDC ---
Assessment and note entered by Glenny Hough, PT Assessment Status Discharge Diagnosis Low Back Pain with Radiculopathy Onset 04/19/23 Subjective Information Pt reports she feels 100% back to normal. No pain, is able to do her work without pain. Reported Pain Level Pain Score 0: Self Report Assessment PT Clinical Summary Pt reports feeling 100% improved overall. Is able to do her activities without pain. Has met 4/5 therapy goals. Only mildly reduced strength hip flexors with mild symptoms however is very functional. Thus pt is being discharged from therapy at this time. Plan of Care PT Services Indicated Yes
== END 2023-05-20 11:05 | disposition home or self-care (01) ==
LOC: ANHHIPT 12:15
PROVIDERS: PCP Physician Assistant Medical; Visit Provider Physician Assistant Medical
DX: M54.50 Low back pain, unspecified (principal)
CPT/HCPCS: 97014; 97110; 97140; 97161; 97750; G0283

== ENCOUNTER 2023-05-20 08:04 | Outpatient (CLI) | payer OTHER, SELFPAY ==
--- NOTE | ~2023-05-20 | MM_ITS ---
EXAMINATION: MM screening stevie BI w josué HISTORY: Screening mammogram TECHNIQUE: Craniocaudal and mediolateral oblique 3-D tomosynthesis images were obtained and synthetic 2-D images were generated. Bilateral rotated lateral CC views. CAD analysis was submitted and interp reted. COMPARISON: 07/27/2021 bilateral diagnostic mammography and bilateral complete breast ultrasound 06/10/2020, 05/26/2019 bilateral screening mammogram examinations BREAST PARENCHYMAL COMPOSITION: The breasts are heterogeneously dense, which may obscure small masses . FINDINGS: Bilateral punctate benign-appearing microcalcifications. There is no evidence of suspicious mass, calcification, or architectural distortion to suggest malignancy in either breast. There has b een no suspicious interval change. IMPRESSION: 1. No mammographic evidence of malignancy. 2. Recommend routine screening mammography in one year. BI-RADS Category 2: Benign finding(s). Reviewed, dictated and finalized at location A.
== END 2023-05-20 08:05 | disposition home or self-care (01) ==
LOC: ANHIMG 08:06
PROVIDERS: PCP Physician Assistant Medical; Visit Provider Obstetrics & Gynecology
DX: Z12.31 Encounter for screening mammogram for malignant neoplasm of breast (principal)
CPT/HCPCS: 77063; 77067

== ENCOUNTER 2023-05-21 14:42 | Outpatient (CLI) | payer OTHER, SELFPAY ==
--- NOTE | 2023-05-21 15:00 | ECHO_ITS ---
Patient Info Name: Sammi Carnes Age: 38 years : 1985 Gender: Female Ht: 63 in Wt: 180 lbs BSA: 1.94 m2 HR: 77 bpm Technical Quality: Fair Exam Date: 05/21/2023 3:07 PM Exam Location: [facility] Pulmonary Patient Status: Outpatient Admit Date: 05/21/2023 Staff Ordering Physician: Flor Rodriguez PA-C Configuration Analyst: Ciera Patton RDCS Attending Provider: Flor Rodriguez PA-C Referring Physician: Jennifer FRIED; Exam Type: CA echo doppler color flow Study Info Indications R60.9 - Edema, unspecified Complete two-dimensional, color flow and Doppler transthoracic echocardiogram is performed. Summary 1. Complete two-dimensional, color flow and Doppler transthoracic echocardiogram is performed. 2. Left ventricular chamber dimension is normal. 3. Left ventricular systolic function is normal, estimated at 60-65%. 4. The left ventricular diastolic function is abnormal. 5. E/e' 10 is mildly elevated. 6. No pulmonary hypertension, estimated pulmonary arterial systolic pressure is 26 mmHg. Left Ventricle E/e' 10 is mildly elevated. Left ventricular chamber dimension is normal. Left ventricular systolic function is normal, estimated at 60-65%. The left ventricular diastolic function is abnormal. Right Ventricle Right ventricular systolic function is normal and with normal TAPSE 2.3 cm. Right ventricular chamber dimension is normal. Left Atria Left atrial chamber dimension is normal. Right Atria Right atrial chamber dimension is normal. Aortic Valve The aortic valve is trileaflet. There is no aortic valve stenosis. There is no aortic valve regurgitation. Pulmonic Valve There is no pulmonic regurgitation. Mitral Valve There is no mitral valve stenosis. There is no mitral valve regurgitation. Tricuspid Valve There is no tricuspid valve regurgitation. No pulmonary hypertension, estimated pulmonary arterial systolic pressure is 26 mmHg. Pericardium/Pleural There is no pericardial effusion. Inferior Vena Cava Normal inferior vena cava with >50% collapse upon inspiration consistent with normal right atrial pressure, 5 mmHg. Aorta The aortic root size at the sinus of Valsalva is normal. Left Ventricular Outflow Tract Name Value Normal LVOT 2D LVOT Diameter 2.0 cm LVOT Doppler LVOT Peak Gradient 4 mmHg LVOT Mean Gradient 2 mmHg LVOT VTI 21 cm LVOT VTI/AV VTI Ratio 0.9 LVOT Stroke Volume 64 ml LVOT CO 4.9 l/min LVOT CI 2.5 l/min/m2 Pulmonic Valve Name Value Normal RVOT Doppler RVOT Peak Gradient 2 mmHg PV Doppler PV Peak Gradient 3 mmHg Mitral Valve
== END 2023-05-21 14:43 | disposition home or self-care (01) ==
LOC: ANHCARD 14:44
PROVIDERS: PCP Physician Assistant Medical; Visit Provider Physician Assistant Medical
DX: M54.50 Low back pain, unspecified (principal)
CPT/HCPCS: 93306

== ENCOUNTER 2023-06-12 09:06 | Outpatient (CLI) | payer OTHER, SELFPAY ==
[2023-06-12 09:44] LABS: Alanine Aminotransferase 27 U/L (6-35); Albumin Level 4.2 g/dL (3.5-5.1); Alkaline Phosphatase 83 U/L (38-126); Anion Gap 9 mmol/L (8-16); Aspartate Amino Transferase 26 U/L (14-36); Bilirubin,Total 0.4 mg/dL (0.2-1.3); Blood Urea Nitrogen 10 mg/dL (7-17); Calcium 8.9 mg/dL (8.4-10.2); Carbon Dioxide 23 mmol/L (22-30); Chloride 105 mmol/L (98-107); Cholesterol 189 mg/dL (0-200); Estimated Glomerular Filt Rate > 60; Glucose 87 mg/dL (65-110); HDL Direct 32 mg/dL; Sodium 137 mmol/L (137-145); Triglycerides 430 mg/dL (<150)
[2023-06-12 09:55] LABS: LDL Cholesterol Direct 100 mg/dL
[2023-06-12 10:01] LABS: Hemoglobin A1C 4.9 % (<5.7)
[2023-06-12 10:06] LABS: Free T4 Free Thyroxine 0.85 ng/mL (0.78-2.19)
[2023-06-12 10:12] LABS: Vitamin D 25 Hydroxy 38.9 ng/mL
[2023-06-12 10:14] LABS: Total Triiodothyronine (T3) 1.34 NG/ML (0.97-1.69)
[2023-06-16 14:43] LABS: DHEA-Sulfate 132 mcg/dL (23-266); FSH 3.2 mIU/mL (***); Insulin Level Total 30.8 uIU/mL (<=18.4); Testosterone Free 2.5 pg/mL (0.1-6.4); Testosterone Total 19 ng/dL (2-45)
== END 2023-06-12 09:07 | disposition home or self-care (01) ==
LOC: ANHLAB 09:08
PROVIDERS: PCP Physician Assistant Medical; Referring Provider Obstetrics & Gynecology; Visit Provider Physician Assistant Medical
DX: N92.6 Irregular menstruation, unspecified (principal); E55.9 Vitamin D deficiency, unspecified; E03.9 Hypothyroidism, unspecified; R53.83 Other fatigue; E66.3 Overweight; F41.9 Anxiety disorder, unspecified; Z13.6 Encounter for screening for cardiovascular disorders; Z00.00 Encounter for general adult medical examination without abnormal findings
CPT/HCPCS: 36415; 80053; 80061; 82306; 82607; 82627; 82728; 83001; 83002; 83036; 83525; 84402; 84403; 84439; 84443; 84480

== ENCOUNTER 2023-09-25 13:09 | Outpatient (CLI) | payer OTHER, SELFPAY ==
--- NOTE | ~2023-09-25 | US_ITS ---
EXAMINATION: US pelvic complete w TV DATE: 09/25/2023 13:43 INDICATION: Follow-up ovarian cyst TECHNIQUE: Multiple transabdominal and endovaginal sonographic images of the pelvis were obtained. COMPARISON: None. FINDINGS: The uterus measures 6.8 x 4.2 x 5.0 cm. The endometrial complex measures 8 mm in thickness. 3 a few nabothian cysts at the cervix, the largest measuring up to 11 mm. The right ovary measures 2.8 x 1.7 x 2.5 cm. The left ovary measures 3.3 x 2.5 x 2.3 cm. Small anechoic cysts/follicles at both ovaries measuring up to 1.8 cm on the left and 1.2 cm on the right. The previously seen hypoechoic likely hem orrhagic cyst at the right ovary has resolved. Vascular flow identified at both ovaries on color Dopp ler. There is no free fluid in the pelvis. IMPRESSION: 1. Resolution of the prior complex likely hemorrhagic cyst at the right ovary with small simple appea ring bilateral anechoic cysts/follicles measuring 1.8 cm on the right and 1.2 cm on the left which re quire no further follow-up. Reviewed, dictated and finalized at location A. RICT CUSTOMS DIRECTOR IMPRESSION: 1. Resolution of the prior complex likely hemorrhagic cyst at the right ovary w ith small simple appearing bilateral anechoic cysts/follicles measuring 1.8 cm on the right and 1.2 cm on the left which require no further follow-up.
== END 2023-09-25 13:10 ==
LOC: MICIMG 13:11
PROVIDERS: PCP Physician Assistant Medical; Visit Provider Obstetrics & Gynecology
DX: N83.209 Unspecified ovarian cyst, unspecified side (principal)
CPT/HCPCS: 76830; 76856

== ENCOUNTER 2023-09-25 13:11 | Outpatient (CLI) | payer OTHER, SELFPAY ==
--- NOTE | ~2023-09-25 | XR_ITS ---
Supine and upright views of the abdomen Clinical history: Abdominal pain Findings: Bowel gas pattern is nonspecific. No evidence for obstruction or free air. Probable small r ight renal stones present, measuring up to 4 mm. Osseous structures are intact. Impression: Right nephrolithiasis, as above. Reviewed, dictated and finalized at [facility]. OTYPE MACHINE OPERATOR Impression: Right nephrolithiasis, as above.
== END 2023-09-25 13:12 ==
LOC: MICIMG 13:12
PROVIDERS: PCP Obstetrics & Gynecology; Visit Provider Physician Assistant Medical
DX: R10.9 Unspecified abdominal pain (principal); N20.0 Calculus of kidney
CPT/HCPCS: 74018

== ENCOUNTER 2023-10-23 13:56 | Outpatient (CLI) | payer OTHER, SELFPAY ==
--- NOTE | ~2023-10-23 | CT_ITS ---
EXAMINATION: CT soft tissue neck w con DATE: 10/23/2023 14:30 INDICATION: Hypothyroidism. Neck fullness. TECHNIQUE: Computed tomography (CT) of the neck was performed with 75 mL Omnipaque-350 intravenous co ntrast. Automated exposure control and iterative reconstruction technique were employed. The dose-kelvin gth product was 404.32 mGy-cm. COMPARISON: Neck CT 07/18/2021 FINDINGS: There is mild scarring at the lung apices. There are no pathologically enlarged lymph nodes . There is 0% stenosis of the proximal internal carotid arteries relative to normal distal artery lum en diameters. There is mild cervical spondylosis. The paranasal sinuses are clear. The mastoid air ce lls are normal. IMPRESSION: 1. No abnormal neck mass or lymphadenopathy. Reviewed, dictated and finalized at location A. ICE PLANNER
== END 2023-10-23 13:57 ==
LOC: MICIMG 13:57
PROVIDERS: PCP Physician Assistant Medical; Visit Provider Physician Assistant Medical
DX: R22.1 Localized swelling, mass and lump, neck (principal); E03.9 Hypothyroidism, unspecified
CPT/HCPCS: 70491; Q9967

== ENCOUNTER 2024-10-28 10:11 | Outpatient (CLI) | payer OTHER, SELFPAY ==
--- NOTE | ~2024-10-28 | MM_ITS ---
EXAMINATION: MM screening stevie BI w josué HISTORY: Screening mammogram, family history of breast cancer in her mother. TECHNIQUE: Craniocaudal and mediolateral oblique 3-D tomosynthesis images were obtained and synthetic 2-D images were generated. CAD analysis was submitted and interpreted. COMPARISON: 05/20/2023, 07/27/2021 BREAST PARENCHYMAL COMPOSITION:Not Dense. There are scattered areas of fibroglandular density. FINDINGS: No suspicious mass, calcification, or architectural distortion are identified in either peggy ast to suggest malignancy. There has been no suspicious interval change. IMPRESSION: No mammographic evidence of malignancy. Recommend routine screening mammography in one year. BI-RADS Category 1: Negative Reviewed, dictated and finalized at location . ON ACREAGE MEASURER
--- OUTSIDE RECORDS SUMMARY | 2024-10-28 11:19 | XMS_ITS | Encounter Summary ---
Author Organization [facility] Address [address] [place] [id number] Care Team Providers Care Cloth Drier Name Role Phone Jaqui Hardwick Primary Care Provider [phone] Xiomara Odom DO Primary Care Provider [phone] Encounter Details Date Type Department Care Team (Late st Contact Info) Description 04/20/2003 Abstract [facility] Conversion Md, Generic Conversion, Social History Tobacco Use Types Packs/Day Years Used Date Smoking Tobacco: Never Assessed Comments Unknown Sex and Gender Information Value Date Recorded Sex Assigned at Not on file Legal Sex Female 5:05 PM CDT Gender Identity Not on file Sexual Orientation Not on file documented as of this encounter Plan of Treatment Not on file documented as of this encounter Visit Diagnoses Not on filedocumented in this encounter Care Teams Cloth Drier Relationship Specialty Start Date End Date Jaqui Hardwick PA PCP - General PHYSICIAN ENTRY LEVEL 10/03/18 03/29/21 Xiomara Odom DO PCP - General FAMILY PRACTICE 03/30/21 documented as of this encounter
--- OUTSIDE RECORDS SUMMARY | 2024-10-28 11:20 | XMS_ITS | Encounter Summary ---
Author Organization [facility] Address [address] [place] [id number] Care Team Providers Care Cream Gatherer Name Role Phone Jaqui Hardwick Primary Care Provider [phone] Xiomara Odom DO Primary Care Provider [phone] Encounter Details Date Type Department Care Team (Late st Contact Info) Description 10/09/2017 Abstract [facility] Conversion Md, Generic Conversion, Social History Tobacco [...] on filedocumented in this encounter Care Teams Cream Gatherer Relationship Specialty Start Date End Date Jaqui Hardwick PA PCP - General PHYSICIAN WILDLIFE CONTROL OPERATOR 10/03/18 03/29/21 Xiomara Odom DO PCP - General FAMILY PRACTICE 03/30/21 documented as of this encounter
--- OUTSIDE RECORDS SUMMARY | 2024-10-28 11:20 | XMS_ITS | Clinical Summary ---
Author Organization [facility] Address [address] [place] [address] Care Team Providers Care Supervisor Road Administrator Name Role Phone Flor Rodriguez Primary Care Provider [phone] Philipp Sherman MD Unavailable Leobardo Turk MD Unavailable [phone] Allergies No known active allergies Medications No known medications Active Problems No known active problems Encounters Date Type Department Care Team Description 10/01/2024 Telephone [facility] [address] [place] [address] Room 3420 (Third Floor) [place] [address] Ivonne Vaughn RN [place] Employee Screening 07/31/2024 9:31 AM [employer] - 07/31/2024 11:59 PM [employer] Hospital Encounter [facility] [address] [place] [address] Chronic lymphocytic thyroiditis; Polycystic ovaries; Avitaminosis D; Obesity, unspecified; Impaired fasting glucose; Screening for lipoid disorders Discharge Disposition: Discharge to home or self care 07/31/2024 9:15 AM [facility] Lab [facility] Out[facility] Lab at [address] [address] Chronic lymphocytic thyroiditis (Primary Dx); Polycystic ovaries; Avitaminosis D; Obesity, unspecified; Impaired fasting glucose; Screening for lipoid disorders from Last 3 Months Social History Tobacco Use Types Packs/Day Years Used Date Smoking Tobacco: Never Assessed Comments Unknown Sex and Gender Information Value Date Recorded Sex Assigned at Not on file Legal Sex Female 8:12 PM [employer] Gender Identity Not on file Sexual Orientation Not on file Plan of Treatment Health Maintenance Due Date Last Done Comments Cervical Cancer Screening 1986 Depression Screening 1986 Hepatitis C Screening 1986 DTaP/Tdap/Td Vaccine (5 - Tdap) 06/28/1999 06/27/1999, 04/24/1991, 04/24/1991, Additional history exists Regular Well Visit/Exam 18-64 2004 Influenza Vaccine (#1) 2024 9, 05/27/2015, 05/25/2014, Additional history exists Varicella Vaccines Completed 04/24/1991, 08/22/1987 Hepatitis B Screening Completed 06/07/1998 , 07/30/1997, 06/29/1997, Additional history exists HPV Vaccines Aged Out No longer eligi ble based on patient's age to complete this topic Pneumococcal vaccine <65 Aged Out No longer eligible based on patient's age to complete this topic Procedures Procedure Name Priority Date/Time Associated Diagnosis Comments EGFR Routine 07/31/2024 9:31 AM [employer] Chronic lymphocytic thyroiditis Polycystic ovaries Avitaminosis D Obesity, unspecified Impaired fasting glucose Screening for lipoid disorders DIFFERENTIAL AUTO Routine 07/31/2024 9:3 1 AM [employer] Chronic lymphocytic thyroiditis Polycystic ovaries Avitaminosis D Obesity, unspecified Impaired fasting glucose Screening for lipoid disorders ACTH Routine 07/31/2024 9:31 AM [employer] Chronic lymphocytic thyroiditis Polycystic ovaries Avitaminosis D Obesity, unspecified Impaired fasting glucose Screening for lipoid disorders CORTISOL Routine 07/31/2024 9:31 AM [employer] Chronic lymphocytic thyroiditis Polycystic ovaries Avitaminosis D Obesity, unspecified Impaired fasting glucose Screening for lipoid disorders DHEA-SULFATE Routine 07/31/2024 9:31 AM [employer] Chronic lymphocytic thyroiditis Polycystic ovaries Avitaminosis D Obesity, unspecified Impaired fasting glucose Screening for lipoid disorders FERRITIN Routine 07/31/2024 9:31 AM [employer] Chronic lymphocytic thyroiditis Polycystic ovaries Avitaminosis D Obesity, unspecified Impaired fasting glucose Screening for lipoid disorders FOLLICLE STIMULATING HORMONE Routine 07/31/2024 9:31 AM [employer] Chronic lymphocytic thyroiditis Polycystic ovaries Avitaminosis D Obesity, unspecified Impaired fasting glucose Screening for lipoid disorders HEMOGLOBIN A1C Routine 07/31/2024 9:31 AM [employer] Chronic lymphocytic thyroiditis Polycystic ovaries Avitaminosis D Obesity, unspecified Impaired fasting glucose Screening for lipoid disorders INSULIN, TOTAL Routine 07/31/2024 9:31 AM [employer] Chronic lymphocytic thyroiditis Polycystic ovaries Avitaminosis D Obesity, unspecified Impaired fasting glucose Screening for lipoid disorders LUTEINIZING HORMONE (LH) Routine 07/31/2024 9:31 AM [employer] Chronic lymphocytic thyroiditis Polycystic ovaries Avitaminosis D Obesity, unspecified Impaired fasting glucose Screening for lipoid disorders MAGNESIUM Routine 07/31/2024 9:31 AM [employer] Chronic lymphocytic thyroiditis Polycystic ovaries Avitaminosis D Obesity, unspecified Impaired fasting glucose Screening for lipoid disorders PROGESTERONE Routine 07/31/2024 9:31 AM [employer] Chronic lymphocytic thyroiditis Polycystic ovaries Avitaminosis D Obesity, unspecified Impaired fasting glucose Screening for lipoid disorders T4, FREE Routine 07/31/2024 9:31 AM [employer] Chronic lymphocytic thyroiditis Polycystic ovaries Avitaminosis D Obesity, unspecified Impaired fasting glucose Screening for lipoid disorders TSH Routine 07/31/2024 9:31 AM [employer] Chronic lymphocytic thyroiditis Polycystic ovaries Avitaminosis D Obesity, unspecified Impaired fasting glucose Screening for lipoid disorders ESTRADIOL Routine 07/31/2024 9:31 AM [employer] Chronic lymphocytic thyroiditis Polycystic ovaries Avitaminosis D Obesity, unspecified Impaired fasting glucose Screening for lipoid disorders THYROID PEROXIDASE ANTIBODY Routine 07/31/2024 9:31 AM [employer] Chronic lymphocytic thyroiditis Polycystic ovaries Avitaminosis D Obesity, unspecified Impaired fasting glucose Screening for lipoid disorders CBC WITH AUTO DIFFERENTIAL Routine 07/31/2024 9:31 AM [employer] Chronic lymphocytic thyroiditis Polycystic ovaries Avitaminosis D Obesity, unspecified Impaired fasting glucose Screening for lipoid disorders VITAMIN B12 Routine 07/31/2024 9:31 AM [employer] Chronic lymphocytic thyroiditis Polycystic ovaries Avitaminosis D Obesity, unspecified Impaired fasting glucose Screening for lipoid disorders FOLATE Routine 07/31/2024 9:31 AM [employer] Chronic lymphocytic thyroiditis Polycystic ovaries Avitaminosis D Obesity, unspecified Impaired fasting glucose Screening for lipoid disorders IRON PROFILE W/ IBC Routine 07/31/2024 9 :31 AM [employer] Chronic lymphocytic thyroiditis Polycystic ovaries Avitaminosis D Obesity, unspecified Impaired fasting glucose Screening for lipoid disorders LIPID PANEL Routine 07/31/2024 9:31 AM [employer] Chronic lymphocytic thyroiditis Polycystic ovaries Avitaminosis D Obesity, unspecified Impaired fasting glucose Screening for lipoid disorders COMPREHENSIVE METABOLIC PANEL Routine 07/31/2024 9:31 AM [employer] Chronic lymphocytic thyroiditis Polycystic ovaries Avitaminosis D Obesity, unspecified Impaired fasting glucose Screening for lipoid disorders VITAMIN D 25 HYDROXY Routine 07/31/2024 9:31 AM [employer] Chronic lymphocytic thyroiditis Polycystic ovaries Avitaminosis D Obesity, unspecified Impaired fasting glucose Screening for lipoid disorders T3, FREE Routine 07/31/2024 9:31 AM [employer] Chronic lymphocytic thyroiditis Polycystic ovaries Avitaminosis D Obesity, unspecified Impaired fasting glucose Screening for lipoid disorders TESTOSTERONE, TOTAL AND FREE, SERUM Routine 07/31/2024 9:31 AM [employer] Chronic lymphocytic thyroiditis Polycystic ovaries Avitaminosis D Obesity, unspecified Impaired fasting glucose Screening for lipoid disorders from Last 3 Months Results * eGFR (07/31/2024 9:31 AM [employer]) eGFR >90 >=60 mL/min/1. 73 m2 Comment: Interpretive Data Reference Interval Normal >/= 90 mL/min/1.73m2 Mildly decreased* 60 - 89 mL/min/1.73m2 Mildly to moderately decreased 45 - 59 mL/min/1.73m2 Moderately to severely decreased 30 - 44 mL/min/1.73m2 Severely decreased 15 - 29 mL/min/1.73m2 Kidney Failure < 15 mL/min/1.73m2 *Relative to young adult level Estimated glomerular filtration rate is determined by the 2020 CKD-EPI equation recommended by the National Kidney Foundation (A Unifying Approach to GFR Estimation: Recommendations of the NKF-ASK Task Force on Reassessing the Inclusion of Race in Diagnosing Kidney Disease, JASN 2020). The CKD-EPI equation should not be used for patients with unstable renal function and has not been validated in children and those over 70. Current interpretive data was last reviewed 2021. Blood 07/31/2024 9:31 AM [employer] 07/31/2024 3:58 PM [employer] us Valeria Lee MD LAB BLOOD ORDERABLES Yessica l Result [facility] [address] [place] [address] * Differential, auto (07/31/2024 9:31 AM [employer]) Pathologist [facility] Neutrophil abs 6.5 1.5 - 6.5 K/cumm Imm gran abs 0.0 0.0 - 0.1 K/cumm [facility] Lymphocyte abs 3.0 0.8 - 3.3 K/cumm [facility] Monocyte abs 0.8 0.2 - 0.8 K/cumm [facility] Eosinophil abs 0.1 0.0 - 0.5 K/cumm [facility] Basophil abs 0.1 0.0 - 0.1 K/cumm [facility] Neutrophil pct 61.4 % [facility] Comment: Interpretive Data Percent cell count reference ranges are not reported, since discordance with absolute values may lead to misinterpretation of CBC data. Current Interpretive Data was last revised on 2017. Imm gran pct 0.4 % [facility] Comment: Interpretive Data Percent cell count reference ranges are not reported, since discordance with absolute values may lead to misinterpretation of CBC data. Current Interpretive Data was last revised on 2017. Lymphocyte pct 28.6 % [facility] Comment: Interpretive Data Percent cell count reference ranges are not reported, since discordance with absolute values may lead to misinterpretation of CBC data. Current Interpretive Data was last revised on 2017. Monocyte pct 7.8 % [facility] Comment: Interpretive Data Percent cell count reference ranges are not reported, since discordance with absolute values may lead to misinterpretation of CBC data. Current Interpretive Data was last revised on 2017. Eosinophil pct 1.0 % [facility] Comment: Interpretive Data Percent cell count reference ranges are not reported, since discordance with absolute values may lead to misinterpretation of CBC data. Current Interpretive Data was last revised on 2017. Basophil pct 0.8 % [facility] Comment: Interpretive Data Percent cell count reference ranges are not reported, since discordance with absolute values may lead to misinterpretation of CBC data. Current Interpretive Data was last revised on 2017. Blood 07/31/2024 9:31 AM [employer] 07/31/2024 3:39 PM [employer] Valeria Lee MD LAB BLOOD ORDERABLES Yessica l Result [facility] [address] Department [place] [address] * (ABNORMAL) Iron profile w/ IBC (07/31/2024 9:31 AM [employer]) Iron 37 35 - 145 mcg/dl TIBC 270 250 - 400 mcg/dL [facility] Transferrin saturation 14(L) 20 - 50 % [facility] Blood 07/31/2024 9:31 AM [employer] 07/31/2024 3:39 PM [employer] Narrative [facility] - 07/31/2024 4:33 PM [employer] Fax results to Dr Valeria Lee [phone] us Valeria Lee MD LAB BLOOD ORDERABLES Yessica l Result Performing Organization Address [facility] Co de Phone Number FELICIA DAVE [address] [place] [place] [address] * (ABNORMAL) CBC with auto differential (07/31/2024 9:31 AM [employer]) WBC 10.6(H) 3.8 - 9.9 K/cumm Hgb 13.2 11.9 - 15.5 g/dL [facility] Hct 42.9 35.6 - 45.5 % [facility] Plt 275 150 - 400 K/cumm [facility] MPV 10.0 9.1 - 12.3 fL [facility] RBC 4.85 3.90 - 5.20 M/cumm [facility] MCV 88.5 81.3 - 96.4 fL [facility] MCH 27.2 27.1 - 33.3 pg [facility] MCHC 30.8(L) 32.3 - 35.7 g/dL [facility] RDW CV 13.3 11.1 - 14.9 % [facility] RDW SD 43.4 35.7 - 48.1 fL [facility] NRBC abs 0.00 0.00 - 0.01 K/cumm [facility] Blood 07/31/2024 9:31 AM [employer] 07/31/2024 3:39 PM [employer] Narrative [facility] - 07/31/2024 4:03 PM [employer] Fax results to Dr Valeria Lee [phone] Valeria Lee MD LAB BLOOD ORDERABLES Yessica l Result Performing Organization Address [facility]/ZIP Co de Phone Number FELICIA DAVE [address] Department [address] [place] [address] * Thyroid peroxidase antibody (TPO) (07/31/2024 9:31 AM [employer]) Anti Thyroid Peroxidase <30 <=34 IUnits/mL Comment: ATPO Interpretive Data Results may be up to 28% higher in patients receiving Itraconazole. Current interpretive data was last revised 2020. Testing performed by: [facility], [address] [place]., [address] Blood 07/31/2024 9:31 AM [employer] 08/03/2024 9:53 AM [employer] Narrative [facility]EL[facility] - 08/03/2024 10:47 AM [employer] Fax results to Dr Valeria Lee [phone] Valeria Lee MD LAB BLOOD ORDERABLES Yessica l Result Performing Organization Address [facility] Co de Phone Number FELICIA [address] [place] [address] * Vitamin D 25 hydroxy (07/31/2024 9:31 AM [employer]) Pathologist [facility] Vitamin D 25-OH 30 30 - 80 ng/mL Blood 07/31/2024 9:31 AM [employer] 07/31/2024 3:39 PM [employer] Narrative FELICIA - 07/31/2024 4:28 PM [employer] Fax results to Dr Valeria Lee [phone] Valeria Lee MD LAB BLOOD ORDERABLES Yessica l Result Performing Organization Address [facility] de Phone Number FELICIA [address] [place] [address] * Progesterone (07/31/2024 9:31 AM [employer]) Progesterone 5.71 ng/mL Comment: Interpretive Data Males: <0.15 ng/mL Females: Follicular <0.20 ng/mL Ovulation <4.1 ng/mL Luteal 4.1 - 14.5 ng/mL 1st Trimester 11.0 - 44.0 ng/mL 2nd Trimester 25.0 - 83.0 ng/mL 3rd Trimester 59.0 - 214.0 ng/mL Postmenopausal <0.13 ng/mL Current interpretive data was last revised 2021. Testing performed by: [facility], [address] [place]., [address] Blood Venous blood specimen / Unknown 07/31/2024 9:31 AM [employer] 08/03/2024 9:53 AM [employer] Narrative [facility] - 08/03/2024 10:23 AM [employer] Fax results to Dr Valeria Lee [phone] Valeria Lee MD LAB BLOOD ORDERABLES Yessica l Result Performing Organization Address City/[facility]/ZIP Co de Phone Number FELICIA [address] [place] [address] * (ABNORMAL) Insulin, total (07/31/2024 9:31 AM [employer]) Insulin 26.7(H) 2.6 - 25.0 mcIUnit/mL Comment:Testing performed by : [facility], [address] [place] [address]., [address] Blood 07/31/2024 9:31 AM [employer] 08/03/2024 9:53 AM [employer] Narrative [facility] 08/03/2024 9:42 PM [employer] Fax results to Dr Valeria Lee [phone] Valeria Lee MD LAB BLOOD ORDERABLES Yessica l Result Performing Organization Address [facility] Co de Phone Number FELICIA [address] [place] [address] * DHEA-sulfate (07/31/2024 9:31 AM [employer]) DHEA-S 160.0 60.9 - 337.0 mcg/dL Comment:Testing performed by : [facility], [address] [place] [address]., [address] Blood 07/31/2024 9:31 AM [employer] 08/03/2024 9:54 AM [employer] Narrative [facility] 08/03/2024 9:21 PM [employer] Fax results to Dr Valeria Lee [phone] Valeria Lee MD LAB BLOOD ORDERABLES Yessica l Result Performing Organization Address City/[facility] Co de Phone Number FELICIA DAVE [address] [facility] [place] [address] * Estradiol (07/31/2024 9:31 AM [employer]) Estradiol 104.0 pg/mL Comment: Interpretive Data Males: 11 43 pg/mL Females: Premenopausal: 31 533 pg/mL Postmenopausal: < 50 pg/mL Patients treated with Fluvestrant (Faslodex) should be tested using an alternate assay such as LC-MS due to potential for cross-reactivity. Estradiol varies widely throughout the menstrual cycle. Current interpretive data was last revised 2024. Testing performed by: [facility], [address] [place] [address]., [address] Blood 07/31/2024 9:31 AM [employer] 08/03/2024 9:53 AM [employer] Narrative [facility] - 08/03/2024 10:23 AM [employer] Fax results to Dr Valeria Lee [phone] Valeria Lee MD LAB BLOOD ORDERABLES Yessica l Result Performing Organization Address [facility] de Phone Number YEMICARLEE DAVE [address] [place] [address] * ACTH (07/31/2024 9:31 AM [employer]) Pathologist [facility] ACTH 15.4 7.0 - 63.0 pg/mL Comment:Testing performed by : [facility], [address] [place] [address]., [address] Blood Venous blood specimen / Unknown 07/31/2024 9:31 AM [employer] 08/03/2024 2:48 PM [employer] Narrative [facility] - 08/07/2024 10:48 AM [employer] Fax results to Dr Valeria Lee [phone] Valeria Lee MD LAB BLOOD ORDERABLES Yessica l Result Performing Organization Address [facility] Co de Phone Number YEMICARLEE DAVE [address] Department [address] [place] [address] * Testosterone, Total and Free, Serum (07/31/2024 9:31 AM [employer]) Testosterone 21 8 - 60 ng/dL [facility] Comment: ADDITIONAL INFORMATION Testing performed by Liquid Chromatography-Tandem Mass Spectrometry (LC-MS/MS). This test was developed and its performance characteristics determined by [facility] in a manner consistent with CLIA requirements. This test has not been cleared or approved by the U.S. Food and Drug Administration. Test Performed by: [facility] [place] [address] Client Care Coordinator: Adrienne Campbell Ph.D.; CLIA# [id number] Testosterone, free 0.64 <0.13 - 1.00 ng/dL [facility] DAVE Comment: ADDITIONAL INFORMATION This test was developed and its performance characteristics determined by [facility] in a manner consistent with CLIA requirements. This test has not been cleared or approved by the U.S. Food and Drug Administration. Blood 07/31/2024 9:31 AM [employer] 07/31/2024 3:39 PM [employer] Gokul Gusman 08/11/2024 12:28 PM [employer] Fax results to Dr Valeria Lee [phone] us Valeria Lee MD LAB BLOOD ORDERABLES Yessica l Result FELICIA DAVE [address] [place] [address] [facility] * T3, free (07/31/2024 9:31 AM [employer]) Free T3 3.0 2.0 - 4.4 pg/mL Blood 07/31/2024 9:31 AM [employer] 07/31/2024 3:39 PM [employer] Narrative [facility] 07/31/2024 4:33 PM [employer] Fax results to Dr Valeria Lee [phone] Valeria Lee MD LAB BLOOD ORDERABLES Yessica l Result Performing Organization Address [facility] Co de Phone Number FELICIA [address] [facility] [place] [address] * TSH (07/31/2024 9:31 AM [employer]) Thyroid Stimulating Hormone 0.56 0.30 - 4.20 mcIUnit/mL Blood Venous blood specimen / Unknown 07/31/2024 9:31 AM [employer] 07/31/2024 3:39 PM [employer] Narrative [facility] 07/31/2024 4:33 PM [employer] Fax results to Dr Valeria Lee [phone] Valeria Lee MD LAB BLOOD ORDERABLES Yessica l Result Performing Organization Address [facility] Co de Phone Number YEMICARLEE [address] [place] [address] * T4, free (07/31/2024 9:31 AM [employer]) Free T4 1.15 0.90 - 1.70 ng/dL Blood Venous blood specimen / Unknown 07/31/2024 9:31 AM [employer] 07/31/2024 3:39 PM [employer] Narrative [facility] 07/31/2024 4:33 PM [employer] Fax results to Dr Valeria Lee [phone] Valeria Lee MD LAB BLOOD ORDERABLES Yessica l Result Performing Organization Address [facility] Co de Phone Number FELICIA [address] [facility] [place] [address] * Magnesium (07/31/2024 9:31 AM [employer]) Magnesium 2.2 1.4 - 2.5 mg/dL Blood Venous blood specimen / Unknown 07/31/2024 9:31 AM [employer] 07/31/2024 3:39 PM [employer] Narrative [facility]ELICIA [facility] 07/31/2024 4:33 PM [employer] Fax results to Dr Valeria Lee [phone] Valeria Lee MD LAB BLOOD ORDERABLES Yessica l Result Performing Organization Address [facility] Co de Phone Number [facility] [address] [address] [facility] [place] [address] * Hemoglobin A1c (07/31/2024 9:31 AM [employer]) Hgb A1C 5.3 4.0 - 5.6 % Estimated Average Glucose 105 mg/dL FELICIA Comment: The ADA recommends reporting an estimated Average Glucose (eAG) with all Hemoglobin A1c results using the equation derived from a study of 507 normal and diabetic adults. Minority populations were underrepresented and children were not included. (Diabetes Care 31:1082-2096, 2008). The eAG is not equivalent to a fasting glucose. Blood Venous blood specimen / Unknown 07/31/2024 9:31 AM [employer] 07/31/2024 3:39 PM [employer] Narrative FELICIA - 07/31/2024 4:32 PM [employer] Fax results to Dr Valeria Lee [phone] Valeria Lee MD LAB BLOOD ORDERABLES Yessica l Result Performing Organization Address [facility] Co de Phone Number [facility] [address] [place] [address] * LH (07/31/2024 9:31 AM [employer]) LH 2.1 IUnits/L Comment: Interpretive Data Males: Adults: 1.7 - 8.6 IUnits/L Females: Follicular: 2.4 - 12.6 IUnits/L Ovulation: 14.0 - 95.6 IUnits/L Luteal: 1.0 - 11.4 IUnits/L Postmenopausal: 7.7 - 58.5 IUnits/L Current interpretive data was last revised on 2019. Testing performed by: [facility], [address] [place]., [address] Blood Venous blood specimen / Unknown 07/31/2024 9:31 AM [employer] [facility] 08/03/2024 9:53 AM [employer] Narrative FELICIA - 08/03/2024 10:23 AM [employer] [facility] Fax results to Dr Valeria Lee [phone] Valeria Lee MD LAB BLOOD ORDERABLES Yessica l Result Performing Organization Address City/[facility]/ZIP Co de Phone Number FELICIA [address] [place] [place] [address] * Follicle stimulating hormone (07/31/2024 9:31 AM [employer]) FSH 2.0 IUnits/L Comment: Interpretive Data Male: Adults: 1.5 - 12.4 IUnits/L Female: Follicular: 3.5 - 12.5 IUnits/L Ovulation: 4.7 - 21.5 IUnits/L Luteal: 1.7 - 7.7 IUnits/L Postmenopausal: 25.8 - 134.8 IUnits/L Current interpretive data was last revised 2015. Testing performed by: [facility], [address] [place]., [address] Blood Venous blood specimen / Unknown 07/31/2024 9:31 AM [facility] 08/03/2024 9:53 AM [facility] Narrative FELICIA [facility] 08/03/2024 10:23 AM [employer] [employer] Fax results to Dr Valeria Lee [phone] Valeria Lee MD LAB BLOOD ORDERABLES [place] [address] [address] [place] [address] * Folate (07/31/2024 9:31 AM [facility]) Folic acid 12.7 >=5.0 ng/mL Blood 07/31/2024 9:31 AM [facility] 07/31/2024 3:39 PM [employer] [employer] Narrative [facility] - 07/31/2024 4:33 PM [employer] Fax results to Dr Valeria Lee [phone] us Valeria Lee MD LAB BLOOD ORDERABLES Yessica l Result FELICIA [address] Alexandre Anaya [facility] [place] [address] * Ferritin (07/31/2024 9:31 AM [facility]) Ferritin 48 15 - 150 ng/mL Blood Venous blood specimen / Unknown 07/31/2024 9:31 AM [facility] 07/31/2024 3:39 PM [employer] Narrative [facility] 07/31/2024 4:33 PM [employer] Fax results to Dr Valeria Lee [phone] us Valeria Lee MD LAB BLOOD ORDERABLES Yessica l Result Performing Organization Address [facility]/ZIP Co de Phone Number FELICIA [address] Alexand[address] Anaya [facility] [place] [address] * Vitamin B12 (07/31/2024 9:31 AM [employer]) Pathologist [facility] Vitamin B12 1,092 230 - 1,250 pg/mL Blood Venous blood specimen / Unknown 07/31/2024 9:31 AM [facility] 07/31/2024 3:39 PM [employer] Narrative [facility] 07/31/2024 4:33 PM [employer] Fax results to Dr Valeria Lee [phone] us Valeria Lee MD LAB BLOOD ORDERABLES Yessica l Result [place] [address] Alexandre [facility] [place] [address] * Cortisol (07/31/2024 9:31 AM [employer]) Cortisol 7.1 4.8 - 19.5 mcg/dl Comment: Interpretive Data Normal Range: 4.8 - 19.5 mcg/dL; Evening: Half of morning value. This analyte undergoes marked diurnal variation. Ranges indicated apply to morning specimens. Current interpretive data was last revised 2018. Blood Venous blood specimen / Unknown 07/31/2024 9:31 AM [facility] 07/31/2024 3:39 PM [employer] Narrative [facility]EL[facility] - 07/31/2024 4:33 PM [employer] Fax results to Dr Valeria Lee [phone] Valeria Lee MD LAB BLOOD ORDERABLES Yessica l Result FELICIA DAVE [address] Alexand[address] Anaya [facility] [place] [address] * (ABNORMAL) Lipid panel (07/31/2024 9:31 AM [employer]) Cholesterol 169 30 - 199 mg/dL Comment: Interpretive Data Ages < or = 19 years Acceptable: <170 mg/dL Borderline high: 170-199 mg/dL High: >or= 200 mg/dL Ages > or = 20 years Desirable: <200 mg/dL Borderline high: 200-239 mg/dL High: >or= 240 mg/dL Literature References: 1. Expert Panel on Integrated Guidelines for Cardiovascular Health and Risk Reduction in Children and Adolescents. Pediatrics 2011;128:S213 2. NCEP Expert Panel. Circulation 2004;110:227 Current Interpretive Data was last revised on 2018. Triglycerides 207(H) <=149 mg/dL FELICIA DAVE Comment: Interpretive Data Ages < or = 9 years Acceptable: <75 mg/dL Borderline high: 75-99 mg/dL High: >or= 100 mg/dL Ages 10 to 20 years Acceptable: <90 mg/dL Borderline high: 90-129 mg/dL High: >or= 130 mg/dL Ages > or = 20 years Desirable: <150 mg/dL Borderline high: 150-199 mg/dL High: 200-499 mg/dL Very high: >or= 499 mg/dL Literature References: 1. Expert Panel on Integrated Guidelines for Cardiovascular Health and Risk Reduction in Children and Adolescents. Pediatrics 2011;128:S213 2. NCEP Expert Panel. Circulation 2004;110:227 Current Interpretive Data was last revised on 2018. HDL 32(L) >=40 mg/dL FELICIA DAVE Comment: Interpretive Data Ages < or = 19 years Acceptable: >45 mg/dL Borderline low: 40-45 mg/dL Low: <40 mg/dL Ages > or = 20 years Desirable: >or= 60 mg/dL Low: <40 mg/dL Literature References: 1. Expert Panel on Integrated Guidelines for Cardiovascular Health and Risk Reduction in Children and Adolescents. Pediatrics 2011;128:S213 2. NCEP Expert Panel. Circulation 2004;110:227 Current Interpretive Data was last revised on 2018. LDL, calculated 101 <=129 mg/dL FELICIA DAVE Comment: Interpretive Data Ages < or = 19 years Acceptable: <110 mg/dL Borderline high: 110-129 mg/dL High: >or= 130 mg/dL Ages > or = 20 years Optimal: <100 mg/dL Near optimal: 100-129 mg/dL Borderline high: 130-159 mg/dL High: >160 mg/dL Calculated using the Chadd LDL-C estimating equation. This equation was implemented on 2024. Prior to this date LDL-C was estimated using the Friedewald equation. Literature References: 1. Expert Panel on Integrated Guidelines for Cardiovascular Health and Risk Reduction in Children and Adolescents. Pediatrics 2011;128:S213 2. NCEP Expert Panel. Circulation 2004;110:227 3. Chadd Gregory al. RUBÉN Cardiol. 2019December 24;5(5):540-548. doi: 10.1001/jamacardio.2020.0013 Current Interpretive Data was last revised on 2024. Non-HDL Cholesterol 137 mg/dL FELICIA Comment: Interpretive Data Ages < or = 19 years Acceptable: <120 mg/dL Borderline high: 120-144 mg/dL High: >145 mg/dL Ages > or = 20 years When triglycerides are >200 mg/dL, Non-HDL cholesterol is a secondary target of therapy with treatment goals that are 30 mg/dL greater than the LDL cholesterol target. Literature References: 1. Expert Panel on Integrated Guidelines for Cardiovascular Health and Risk Reduction in Children and Adolescents. Pediatrics 2011;128:S213 2. NCEP Expert Panel. Circulation 2004;110:227 Current Interpretive Data was last revised on 2018. Chol/HDL ratio 5 [facility] Blood Venous blood specimen / Unknown 07/31/2024 9:31 AM [employer] [facility] 07/31/2024 3:39 PM [employer] Narrative [facility] - 07/31/2024 4:33 PM [employer] Fax results to Dr Valeria Lee [phone] Valeria Lee MD LAB BLOOD [place] [address] Alexand[address] Anaya [place] [address] * Comprehensive metabolic panel (07/31/2024 9:31 AM [employer]) Sodium 140 135 - 145 mmol/L Potassium, pl 4.2 3.3 - 4.9 mmol/L [facility] Chloride 106 97 - 110 mmol/L [facility] CO2 24 22 - 32 mmol/L [facility] Anion gap 10 2 - 15 mmol/L [facility] BUN 8 6 - 25 mg/dL [facility] Creatinine 0.82 0.60 - 1.10 mg/dL [facility] Glucose 86 70 - 199 mg/dL [facility] Comment: Interpretive Data Fasting glucose >/= 126 mg/dl is diagnostic for diabetes. Fasting is defined as no caloric intake for at least 8 hours. Fasting glucose between 100 mg/dl to 125 mg/dl is diagnostic of prediabetes. In a patient with classic symptoms of hyperglycemia or hyperglycemic crisis, a random glucose >/= 200 mg/dl is diagnostic for diabetes. In the absence of unequivocal hyperglycemia, results should be confirmed by repeat testing. The classification and Diagnosis of Diabetes Diabetes Care 202; 46: S19-S40. Current interpretive data was last revised 2022. Calcium 9.4 8.5 - 10.3 mg/dL [facility] Bilirubin, total 0.2 0.1 - 1.2 mg/dL [facility] Protein, pl 7.4 6.5 - 8.5 g/dL [facility] Albumin 4.3 3.5 - 5.0 g/dL [facility] Alk phos 93 40 - 130 Units/L [facility] ALT 18 7 - 45 Units/L [facility] AST 21 10 - 45 Units/L [facility] Blood Venous blood specimen / Unknown 07/31/2024 9:31 AM [facility] 07/31/2024 3:39 PM [employer] Narrative [facility] - 07/31/2024 4:33 PM [employer] Fax results to Dr Valeria Lee [phone] Valeria Lee MD LAB BLOOD ORDERABLES Yessica l Result FELICIA [address] Alexand[address] Anaya [place] [address] from Last 3 Months Insurance [facility] Care Teams Supervisor Road Administrator Relationship Specialty Start Date End Date Flor Rodriguez PA [address] [place] [address] PCP - General Family Practice 09/12/23 Philipp Sherman MD [address] [place], [place] [id number] Referring Physician Obstetrics and Gynecology 06/04/22 Leobardo Turk MD [address] [place], [place] [id number] Referring Physician Obstetrics and Gynecology 06/04/22
--- OUTSIDE RECORDS SUMMARY | 2024-10-28 11:20 | XMS_ITS | Encounter Summary ---
Author Organization [facility] Address [address] [place] [address] Care Team Providers Care Cd Mixer Name Role Phone Jaqui Hardwick Primary Care Provider [phone] Xiomara Odom DO Primary Care Provider [phone] Encounter Details Date Type Department Care Team (Late st Contact Info) Description 10/03/2017 Abstract [facility] Conversion Md, Generic Conversion, Social History [...] on filedocumented in this encounter Care Teams Cd Mixer Relationship Specialty Start Date End Date Jaqui Hardwick PA PCP - General PHYSICIAN WILDERNESS GUIDE 10/03/18 03/29/21 Xiomara Odom DO PCP - General FAMILY PRACTICE 03/30/21 documented as of this encounter
--- OUTSIDE RECORDS SUMMARY | 2024-10-28 11:20 | XMS_ITS ---
Author Organization [facility] Address [address] [place] [address] Care Team Providers Care Car Head Liner Installer Name Role Phone Jesus Valeria Primary Care Provider [phone] REASON FOR VISIT medication Medications Medication SIG (Take, Route, Fr equency, Duration) Notes Start Date End Date Status metFORMIN HCl ER 500 MG 1 tablet with ev ening meal Orally Once a day for 90 days 09/02/2024 Active Encounters Encounter Location Date Provider Diagnosis [facility] - Valeria Lee [address] [place] [address] 09/02/2024 Valeria Lee Impaired fasting glucose R73.01 Assessments Encounter Date Diagnosis (ICD Code) Assessment Notes Treatment Notes Treatment Clinical Notes Section Notes 09/02/2024 Impaired fasting glucose (ICD-10 - R73.01) Plan Of Treatment Medication Medication Name Sig Start Date Stop Date Notes metFORMIN HCl ER 500 MG 1 tablet with ev ening meal Orally Once a day for 90 days 09/02/2024 Progress Notes * Sammi LUNADOB:[birth year] (39 yo F)Acc No.[id number]:09/02/2024 Patient: Gardenia ANGE Sammi :1985 A ge:39 Y S ex:Female Address:[address], [place], [address] * Refills Start metFORMIN HCl ER Tablet Extended Release 24 Hour, 500 MG, Orally, 90 Tablet, 1 tablet with evening meal, Once a day, 90 days, Refills=1 Subjective: * Chief Complaints: * M edication * Medical History: * Surgical History: * Hospitalization/Major Diagno stic Procedure: * Medications: Objective: * Vitals: * Physical Examination: Assessment: * Assessment: 1. 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
--- OUTSIDE RECORDS SUMMARY | 2024-10-28 11:20 | XMS_ITS | Patient Health Record ---
[facility] Organization [facility] Address [address] [address] Care Team Providers Care Welfare Officer Name Role Phone Valeria Lee Primary Care Provider Allergies No Known Allergies Reason For Referral No Information Medications Medication SIG (Take, Route, Frequency, Duration) Notes Start Date End Date Status dexAMETHasone 1 MG 1 tablet Orally at 1 0 pm night before 8 am cortisol for 1 days 07/30/2024 Unknown metFORMIN HCl ER 500 MG 1 tablet with ev ening meal Orally Once a day for 90 days 09/02/2024 Active Synthroid 125 MCG 1 tablet in the morn ing on an empty stomach Orally Once a day for 90 days 08/17/2024 Unknown Norethindrone 0.35 MG 1 tablet Orally On ce a day for 90 days 07/30/2024 Unknown Synthroid 100 MCG 1 tablet in the morn ing on an empty stomach Orally Once a day Unknown Lexapro Unknown Zepbound 5 MG/0.5ML inject 5 mg Subcutan eous weekly for 90 days 07/30/2024 Unknown Zepbound 2.5 MG/0.5ML inject 2.5 mg Subcutaneous weekly for 30 days 07/30/2024 Unknown Zepbound 2.5 MG/0.5ML 0.5 mL Subcutaneou s weekly for 30 days 08/28/2024 Active Synthroid 125 MCG 1 tablet in the morn ing on an empty stomach Orally Once a day for 90 days 08/17/2024 Unknown Metoprolol Succinate 25 MG 1 capsule Ora lly Once a day Unknown Zepbound 5 MG/0.5ML 0.5 mL Subcutaneous weekly for 90 days 08/28/2024 Active Problems Problem Type SNOMED Code ICD Code Onset Dates Problem Status W/U Status Risk Notes Problem Vitamin D deficiency (70751829) Vitamin D deficiency, unspecified (E55.9) Active confirmed Problem Hypothyroidism (26749583) Hypothyroidism, unspecified (E03.9) Active confirmed Problem Obstructive sleep apnea syndrome (disorder) (84677739) Obstructive sleep apnea (adult) (pediatric) (G47.33) Active confirmed Problem Obesity (642729920) Obesity, unspecified (E66.9) Active confirmed Problem Autoimmune thyroiditis (47412908) Autoimmune thyroiditis (E06.3) Active confirmed Problem 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) Other ovarian dysfunction (E28.8) Active confirmed Vital Signs Heart Rate 72 /min 08/28/2024 Respiratory Rate 12 /min 08/28/2024 Blood pressure diastolic 72 mm Hg 08/28/2024 Height 63 in 08/28/2024 Blood pressure systolic 120 mm Hg 08/28/2024 Weight 205 lbs 08/28/2024 BMI 36.31 kg/m2 08/28/2024 Encounters Encounter Location Date Provider Diagnosis [facility] - Valeriavarsha Lee [address] [place] [address] 07/30/2024 Valeria Lee Insulin resistance, unspecified E88.819 ; Obesity, unspecified E66.9 ; Autoimmune thyroiditis E06.3 ; Other fatigue R53.83 ; Vitamin D deficiency, unspecified E55.9 ; Dietary counseling and surveillance Z71.3 and Other ovarian dysfunction E28.8 [facility] [address] [place] [address] 08/06/2024 Valeria Lee [facility], [facility] - Valeria [facility] [address] [place] [address] 08/17/2024 Valeria Lee [facility] [address] [place] [address] 08/17/2024 Valeria Lee Hypothyroidism, unspecified E03.9 [facility] [address] [place] [address] 08/17/2024 Valeria Lee Hypothyroidism, unspecified E03.9 [facility] - Valeria Lee [address] [place] [address] 09/02/2024 Valeria Lee Impaired fasting glucose R73.01 [facility] [address] [place] [address] 09/04/2024 Valeria Lee [facility] - Valeria Lee [address] [place] [address] 08/28/2024 Valeria Lee Obesity, unspecified E66.9 ; Autoimmune thyroiditis E06.3 ; Vitamin D deficiency, unspecified E55.9 ; Hypothyroidism, unspecified E03.9 and Obstructive sleep apnea (adult) (pediatric) G47.33 Assessments Encounter Date Diagnosis (ICD Code) Assessment Notes Treatment Notes Treatment Clinical Notes Section Notes 07/30/2024 Obesity, unspecified (ICD-10 - E66.9) 07/30/2024 Insulin resistance, unspecified (ICD-10 - E88.819) 08/17/2024 Hypothyroidism, unspecified (ICD-10 - E03.9) 08/17/2024 Hypothyroidism, unspecified (ICD-10 - E03.9) 09/02/2024 Impaired fasting glucose (ICD-10 - R73.01) 08/28/2024 Obesity, unspecified (ICD-10 - E66.9) 08/28/2024 Autoimmune thyroiditis (ICD-10 - E06.3) 07/30/2024 Autoimmune thyroiditis (ICD-10 - E06.3) 08/28/2024 Vitamin D deficiency, unspecified (ICD-10 - E55.9) 07/30/2024 Other fatigue (ICD-10 - R53.83) 08/28/2024 Hypothyroidism, unspecified (ICD-10 - E03.9) 07/30/2024 Vitamin D deficiency, unspecified (ICD-10 - E55.9) 08/28/2024 Obstructive sleep apnea (adult) (pediatric) (ICD-10 - G47.33) 07/30/2024 Dietary counseling and surveillance (ICD-10 - Z71.3) 07/30/2024 Other ovarian dysfunction (ICD-10 - E28.8) 07/30/2024 Other Assessment and Plan: 1. Cheri's Thyroiditis- Continue Synthroid 100 mcg daily- Order comprehensive thyroid panel to assess current thyroid function and determine if adjustments to Synthroid or addition of T3 in the afternoon are necessary 2. Insulin Resistance and Weight Management- Discontinue Mounjaro due to insurance coverage issues- Prescribe Zepbound 2.5 mg once a week for four weeks, with intent to titrate- Send prescription to [facility] 3. Polycystic Ovary Syndrome (PCOS)- Offer compounding for PCOS women whose insurance won't help, $290 a month for injections- Consider sublingual tirzepatide for maintenance, $150 a month 4. Cortisol Imbalance- Order Dexa suppression test and challenge the pituitary adrenal axis to assess for excess cortisol production- Prescribe dexamethasone tablet for use in conjunction with cortisol test 5. Menstrual Cycle Irregularities- Prescribe Norethindrone 0.35 mg daily for cycle regulation- Monitor for changes in headache frequency, cycle heaviness, and clotting; adjust treatment as necessary 6. Laboratory Tests- Order comprehensive lab work, including tests for insulin resistance- Order cortisol and dexamethasone tests; instruct the patient to take dexamethasone tablet at 10 p.m. and complete 8 a.m. cortisol test the next morning (both labs are fasting)- Advise the patient to complete cortisol test as close to 8 a.m. as possible, with 9 a.m. as the cutoff Follow-up:- Schedule a follow-up appointment to review lab results and assess the effectiveness of the treatment plan- Adjust medications and treatment plan as necessary based on lab results and patient feedback Spent 45 minutes preparing to see the patient (ex review of tests/chart), obtaining and / or reviewing separately obtained history, performing a medically appropriate examination and/or evaluation, counseling and educating the patient/family/ca regiver, ordering medications, tests, or procedures, referring and communicating with other health infant caregiver, documenting clinical information in the electronic or other health record, independently interpreting results and communicating results to the patient/family/ca regiver and care coordinating patient plan. Patient alert and oriented x 4 and aware of discussion noted above and in agreeance to plan in management of hypothyroidism, irregular cycles/PCOS, obesity/weight management and fatigue/vitamin def workup. 08/28/2024 Other Assessment and Plan: 1. Hypothyroidism- Currently on 125 mcg Synthroid with reports of continued fatigue. Monitor thyroid levels and adjust Synthroid dosage as necessary, particularly with any weight loss. 2. Obesity (BMI > 30)- Weight at 205 pounds, BMI exceeds 30. Advise on a diet rich in protein, fiber, and water. Consider tirzepatide for weight management if deemed suitable. 3. Sleep Apnea- Sleep study completed, awaiting CPAP machine and nasal device from primary care physician. Ensure effective follow-up for management. 4. Migraines and Weight Loss- Noted hair loss with Topamax use. Discontinue Topamax and explore alternative treatments for migraines and weight loss. 5. Borderline Lab Results- Vitamin D at low-normal levels, Iron saturation at 14%, Fasting sugar at 86, Triglycerides elevated, HDL low, Kidney and liver functions normal. Suggest iron-fortified multivitamin and omega-3 fatty acids. Recommend dietary sources like salmon or tuna for omega-3s and red meat weekly for iron. 6. Hormone Levels- Estrogen, progesterone, and testosterone within normal limits. No current need for intervention. 7. Zepbound Prescription- Prescription resent to [facility] for sleep apnea. Begin with 2.5 mg once weekly for the first month on a weekend night to monitor for nausea. If well-tolerated, consider increasing to 5 mg. Follow-up:- Arrange a follow-up visit in 2-3 months to review management effectiveness and progress. Patient is advised to contact the clinic with any concerns or issues. Spent 25 minutes preparing to see the patient (ex review of tests/chart), obtaining and / or reviewing separately obtained history, performing a medically appropriate examination and/or evaluation, counseling and educating the patient/family/ca regiver, ordering medications, tests, or procedures, referring and communicating with other health infant caregiver, documenting clinical information in the electronic or other health record, independently interpreting results and communicating results to the patient/family/ca regiver and care coordinating patient plan. Patient alert and oriented x 4 and aware of discussion noted above and in agreeance to plan in management of hypothyroidism, obesity/weight management, ERMA, vitamin D deficiency. Due to the nature of telemedicine, the ability to do physical assessment was limited to what can be accomplished by patient directed telehealth visit based on instruction. Those limits are understood by the patient and myself. Impression is based on history, available information, and physical findings accomplished with telehealth visit. Chronic disease/problem list/ medication list reviewed and updated where indicated. Discussed diagnosis, plan including risks, benefits, and options of treatment. Advised to call for new, worsening, or persistent symptoms. Level of patient risk was of moderate complexity due to the documented nature of presentation, the information assessment required and the nature of the development of an evaluation and treatment plan as documented. PMH, FHx, SHx, Surgical Hx, Quality management review carried out and addressed as documented today as part of this visit. Medication list was reviewed and adjusted as indicated. Medication requiring a refill was addressed. Risk and benefits of any new medications were discussed and all questions were answered. Plan Of Treatment No Information Insurance Providers Payer Name Payer Address Payer Phone Subscriber Number Group Number Insured Name Patient Relationship to Insured Coverage Start Date Coverage End Date [employer]ey [address] [place] [address] [id number] Sammi Carnes Self - patient is the insured Medical (General) History Medical History History ICD Code thyroid issues PCOS
--- OUTSIDE RECORDS SUMMARY | 2024-10-28 11:20 | XMS_ITS ---
Author Organization [facility] Address [address] [address] Care Team Providers Care Cleaner Name Role Phone Valeria Lee Primary Care Provider [phone] REASON FOR VISIT 3 week f/u hafsa Medications Medication SIG (Take, Route, Frequency, Duration) Notes Start Date End Date Status Synthroid 125 MCG 1 tablet in the morn ing on an empty stomach Orally Once a day for 90 days 08/17/2024 Unknown Norethindrone 0.35 MG 1 tablet Orally On ce a day for 90 days 07/30/2024 Unknown Zepbound 2.5 MG/0.5ML 0.5 mL Subcutaneou s weekly for 30 days 08/28/2024 Active Synthroid 125 MCG 1 tablet in the morn ing on an empty stomach Orally Once a day for 90 days 08/17/2024 Unknown Zepbound 5 MG/0.5ML 0.5 mL Subcutaneous weekly for 90 days 08/28/2024 Active dexAMETHasone 1 MG 1 tablet Orally at 1 0 pm night before 8 am cortisol for 1 days 07/30/2024 Unknown Synthroid 100 MCG 1 tablet in the morn ing on an empty stomach Orally Once a day Unknown Lexapro Unknown Zepbound 5 MG/0.5ML inject 5 mg Subcutan eous weekly for 90 days 07/30/2024 Unknown Zepbound 2.5 MG/0.5ML inject 2.5 mg Subcutaneous weekly for 30 days 07/30/2024 Unknown Metoprolol Succinate 25 MG 1 capsule Ora lly Once a day Unknown Problems Problem Type SNOMED Code ICD Code Onset Dates Problem Status W/U Status Risk Notes Problem Obstructive sleep apnea syndrome (disorder) (37746133) Obstructive sleep apnea (adult) (pediatric) (G47.33) Active confirmed Vital Signs Blood pressure systolic 120 mm Hg 08/28/19 25 Blood pressure diastolic 72 mm Hg 025 Heart Rate 72 /min 08/28/2024 Respiratory Rate 12 /min 08/28/2024 Height 63 in 08/28/2024 Weight 205 lbs 08/28/2024 BMI 36.31 kg/m2 08/28/2024 Encounters Encounter Location Date Provider Diagnosis [facility], [facility] - Valeria Lee [address] [place] [address] 08/28/2024 Valeria Lee Obesity, unspecified E66.9 ; Autoimmune thyroiditis E06.3 ; Vitamin D deficiency, unspecified E55.9 ; Hypothyroidism, unspecified E03.9 and Obstructive sleep apnea (adult) (pediatric) G47.33 Assessments Encounter Date Diagnosis (ICD Code) Assessment Notes Treatment Notes Treatment Clinical Notes Section Notes 08/28/2024 Obesity, unspecified (ICD-10 - E66.9) 08/28/2024 Autoimmune thyroiditis (ICD-10 - E06.3) 08/28/2024 Vitamin D deficiency, unspecified (ICD-10 - E55.9) 08/28/2024 Hypothyroidism, unspecified (ICD-10 - E03.9) 08/28/2024 Obstructive sleep apnea (adult) (pediatric) (ICD-10 - G47.33) 08/28/2024 Other Assessment and Plan: 1. Hypothyroidism- [...] procedures, referring and communicating with other health toddler caregiver, documenting clinical information in the electronic [...] all questions were answered. Plan Of Treatment Medication Medication Name Sig Start Date Stop Date Notes Zepbound 2.5 MG/0.5ML 0.5 mL Subcutaneou s weekly for 30 days 08/28/2024 Zepbound 5 MG/0.5ML 0.5 mL Subcutaneous weekly for 90 days 08/28/2024 Treatment Notes Assessment Notes Other Assessment and Plan: 1. Hypothyroidism- Currently [...] examination and/or evaluation, counseling and educating the patient/family/caregiver, ordering medications, tests, or procedures, referring and communicating with other health toddler caregiver, documenting clinical information in the electronic or other health record, independently interpreting results and communicating results to the patient/family/caregiver and care coordinating patient plan. Patient alert [...] were discussed and all questions were answered. Next Appt Details Follow Up: 3 Months, Reason: labwork Progress Notes * Sammi LUNADOB:[birth year] (39 yo F)Acc No.[id number]:08/28/2024 Progress Notes Patient: Sammi HENNESSY Provider: Lupe Lee MD :1985 A ge:39 Y S ex:Female Date:08/28/2024 Address:[address] [place] [address], [facility] Subjective: * Chief Complaints: * 1 . 3 week f/u hafsa. * HPI: I nterval Hx: 39 yo female calls in today to initiate telehealth visit to discuss progress and management of PCOS, hypothyroidism, weight management and obesity. Verbal consent provided by patient to proceed with this visit. This visit was performed in office via provider and patient located in primary care office with real time audio with video. At initial visit in Jul we added norethindrone and requested start of zepbound to help with weight management. We continued synthroid 100 mcg daily for thyroid management. We sent for DST to screen for hypercortisolism. N ot completed. Sammi reports persistent fatigue despite starting Synthroid 125 mcg and complains of constipation. She has a BMI over 30 and was recently diagnosed with sleep apnea, awaiting a CPAP machine. She experienced hair loss with Topamax, which was discontinued. Recent labs show low-normal vitamin D, iron saturation of 14%, high triglycerides, and low HDL. She is following a protein-rich diet and has a prescription for Zepbound for weight loss, resent under the sleep apnea diagnosis. Follow-up is scheduled in 2-3 months. Patient reports persistent fatigue despite starting Synthroid 125 mcg. She also complains of feeling blocked. Her weight is 205 pounds with a BMI over 30. She was diagnosed with sleep apnea following a sleep test and is awaiting a CPAP machine and nasal device. Patient previously tried Topamax for migraines and weight loss but experienced hair loss as a side effect. She has borderline high insulin levels. Recent labs show low-normal vitamin D, iron saturation of 14%, fasting glucose of 86, elevated triglycerides, and low HDL. Kidney and liver functions are normal. Ferritin levels are not significantly low. Patient attempted to obtain Zepbound for weight loss, but it was not covered by her insurance. She reports that the prescription has been resent to the pharmacy under the sleep apnea diagnosis. Medical History - Hypothyroidism - Sleep apnea - Migraines (history of) - Obesity (BMI 30) Current and Past Medications and Supplements - Synthroid 125mcg - Topamax (past medication, discontinued due to hair loss) Social History - Diet: Eating plenty of protein, fiber, and drinking water N/A Review of Systems - General: Very tired - Gastrointestinal: Feels blocked (constipation) - Endocrine: Hair loss (previously from medication) - Neurological: Migraines (history of) labs from 07/31/24: 169/207/32/101 glucose 86 mg/dL insulin 26.7 uU/ml LFT normal Cr normal mag 2.1 mg/dL estradiol 104 pg/ml progesterone 5.7 ng/mL LH/FSH normal dheas 161 ug/mL acth 15.1 pg/ML testosterone 21 ng/dL TSH 0.57 uIU/mL FT4 1.15 ng/mL FT3 3.0 pg/ML TPO neg vit D 30 ng/mL a1c 5.3% iron sat 14% ferritin normal H/H normal. * ROS: H EMATOLOGY/LYMPH: no s wollen glands. n o f atigue. n o l oss of appetite. n o e asy bruising. n o e asy bleeding. n o a nemia. ? U ROLOGY: no d ifficulty urinating. n o b lood in urine. n o u rinary urgency. n o f requent urination. n o u rinary incontinence. n o v oiding dysfunction. n o v ulvodynia. n o d ysparaunia. n o r ecurrent UTI. n o w eak flow. n o d ribbling after urination. n o f requent bladder infections. n o k idney stone. n o k idney disease. n o u rine hesitancy.?no p ainful urination. N UTRITION: greater than body requirmemts y es. L ess than body requirements y es. a ppropriate / adequate y es, y es. C ONSTITUTIONAL: no w eight gain. n o l oss of appetite. n o?fever. w eakness y es. n o w eight loss. n o n ight sweats. n o n ausea. n o v isual changes. n o c hange in sleep patterns. h +p reviewed y es, R OS form reviewed with patient see scan for detail. n o c hange in activity capacity. D ERMATOLOGY: no r cesar. n o c hange in color of moles. n o?lumps. n o d ry or sensitive skin. n o h julia. n o o teo skin. n o?acne. n o m oles-irregular. n o m oles-change/new. n o b oils. n o dandruff. n o e xcessive body odor. n o p soriasis. n o f ungal infections. n o n ail problems. n o r edness/inflammation. n o a thlete's foot. n o s kin cancer. n o e czema. E NDOCRINOLOGY: fatigue y es. n o e xcessive sweating. n o e xcessive thirst. n o e xcessive urination. n o w eight loss. n o s leep disturbance. n o c old intolerance. n o h eat intolerence. n o t hyroid disease. n o i ncreased loss of hair. n o h x of borderline diabetes. n o d iabetes. n o a bdormal body hair. n o r heumatism. n o c hanges in skin texture.? N EUROLOGY: headache y es, f requent. n o t ingling numbness. n o s eizures. n o i nsomnia. n o m susan loss. n o d izziness.?no g ait abnormality. n o c hange in sensation anywhere on body. n o l ocalized weakness or numbness. n o b lackouts or near blackouts. n o m igraine. n o?tremors. n o f ainting spells. n o h ead injury. n o s troke. O PTHALMOLOGY: no d iminished vision. n o e ye irritation. n o?drainage from eyes. b lurring of vision y es. n o s easonal eye sx. n o?dander related eye sx. n o l oss of vision. n o c ataracts. n o g lasses/contacts. n o g laucoma. n o d etached retina. n o m acular degeneration.?no e ye redness. R ESPIRATORY: no s hortness of breath. n o c hest pain. n o?wheezing. n o a sthma. n o b reathlessness when lying flat. n o p rolonged cough. n o f requent infections (bronchitis). n o e mphysema. n o c hest congestion. n o s leep apnea. A LLERGY: no r unny nose. n o s cratchy throat. n o i tchy eyes. n o e ar fullness. n o s inus congestion. n o s tuffy nose. n o w atery eyes. n o s easonal allergies. n o h ay fever. n o a llergy.?no p olyps. n o s neezing. E NT: no c old. n o c ough. n o c oughing blood.?no n ose bleed. n o h earing loss. n o c hange in voice. n o s ore throat. n o r inging in ears. s noring y es. n o e ar pain. n o r unny nose. n o w atery eyes. n o s inus infection. n o e ar infection. n o facial pain. n o h oarseness. n o g oiter. n o g um problems. n o?postnasal drip. n o f requent nosebleeds. C ARDIOLOGY: no c hest pain. n o p alpitations. n o l eg swelling. n o d izziness. n o s hortness of breath. n o v aricose veins.?no l eg cramps. n o c old hands or feet. n o h igh blood pressure. n o ankle swelling. n o c ardiac catheterization. n o h eart attacks. n o a ngina. n o m urmurs. n o l ow blood pressure. n o l eg pain that resolves w/rest. n o p urple fingers or lips. n o i rregular heart rate. n o c ongenital heart defects. n o d izziness when standing up quickly. n o a wakening at night short of breath. G ASTROENTEROLOGY: no n ausea. n o h eartburn. n o s tool incontinence. n o r eflux. n o a bdominal pain. n o i ndigestion. n o h emorrhoids. n o h iatal hernia. n o u lcers. n o a nal fissures. n o?hepatitis. n o g allstones. n o r ed blood after bowel movements. n o v omiting. n o b loating/belching. n o d ifficulty swallowing. n o d iarrhea.?no c onstipation. n o c hange in bowel habits. n o b lood in stool. ? M USCULOSKELETAL: joint swelling y es. j oint pain y es. n o l eg cramps. n o j oint stiffness. n o a rthritis. b ack pain y es. n o?muscle aches. n o m orning stiffness. n o t endinitis. n mitzi pain y es. no b ursitis. n o b one marrow biopsy. n o g out. a ctivity intolerance w eakness. n o f racture. P SYCHOLOGY: no h igh stress level. n o d epression. s leep disturbances y es. n o r flaca sx worse with stress. n o s uicidal ideation. n o e ating disorder. n o m ental or physical abuse. a nxiety y es. n o h eadaches. d isease state y es. F EMALE REPRODUCTIVE: no h eavy periods. n o d ysparaunia. n o s exually active. n o p remenstrual syndrome. n o d ysmenorrhea. n o i nfertility. n o f requent yeast infections. n o v aginal itching. n o i ntermenstrual bleeding. n o p ost coital bleeding. n o p ostmenopausal bleeding. n o p elvic pain. n o m enstral cycle. n o v aginal discharge. n o v aginal dryness. n o o varian cysts. n o f ibroids. n o d ischarge from breast. n o abn. bleeding between cycles. n o p ostmenopausal symptoms. n o l oss of sexual interest. n o p ainful sexual intercourse. n o e ndometriosis. n o v aginal warts. n o a bnormal pap. n o i rregular periods. n o a bnormal vaginal discharge. n o h ot flashes. r ecent weight change. * Medical History: T hyroid issues, PCOS. * Medications: U nknown Metoprolol Succinate 25 MG Capsule ER 24 Hour Sprinkle 1 capsule Orally Once a day , Unknown Lexapro , Unknown Synthroid(Levothyroxine Sodium) 100 MCG Tablet 1 tablet in the morning on an empty stomach Orally Once a day , Unknown Zepbound(Tirzepatide-Weight Management) 2.5 MG/0.5ML Solution Auto-injector inject 2.5 mg Subcutaneous weekly , Unknown Zepbound(Tirzepatide-Weight Management) 5 MG/0.5ML Solution Auto-injector inject 5 mg Subcutaneous weekly , Unknown dexAMETHasone 1 MG Tablet 1 tablet Orally at 10 pm night before 8 am cortisol , Unknown Norethindrone 0.35 MG Tablet 1 tablet Orally Once a day , Unknown Synthroid(Levothyroxine Sodium) 125 MCG Tablet 1 tablet in the morning on an empty stomach Orally Once a day , Unknown Synthroid(Levothyroxine Sodium) 125 MCG Tablet 1 tablet in the morning on an empty stomach Orally Once a day Objective: * Vitals: R R:12, HR:72, BP:120/72, Ht: 63, Wt:205, BMI: 36.31. * Examination: G eneral Examination: General n ormal, NAD, well nourished and hydrated, pleasant, obese. Neck, thyroid : s upple. Assessment: * Assessment: 1. O besity, unspecified - E66.9 (Primary) 2 . A utoimmune thyroiditis - E06.3 3 . V itamin D deficiency, unspecified - E55.9 4 . H ypothyroidism, unspecified - E03.9 5 . O bstructive sleep apnea (adult) (pediatric) - G47.33 Plan: * Treatment: 2. O thers Notes: Assessment and Plan: 1. Hypothyroidism- Currently on [...] examination and/or evaluation, counseling and educating the patient/family/caregiver, ordering medications, tests, or procedures, referring and communicating with other health toddler caregiver, documenting clinical information in the electronic or other health record, independently interpreting results and communicating results to the patient/family/caregiver and care coordinating patient plan. Patient alert [...] were discussed and all questions were answered. ? * Follow Up: 3 Months (Reason: labwork) * Billing Information: * Visit Code: 40300 Office Visit, Est Pt., Level 4. Modifiers: 95 * Procedure Codes: * L FRONT DESK ATTENDANT Sign off status: Completed true * Provider: Lupe Lee MD Date: 08/28/2024 Generated for Caleb reynolds/Lauren/Fabiolaitting on: 0 10/28/2024 11:19 AM MOTEL FRONT DESK ATTENDANT History and Physical Notes * HPI (History of Present Illness) Category Sub-Category Detail Notes Category Not es Interval Hx 39 yo female calls in today to initiate telehealth visit to discuss progress and management of PCOS, hypothyroidism, weight management and obesity. Verbal consent provided by patient to proceed with this visit. This visit was performed in office via provider and patient located in primary care office with real time audio with video. At initial visit in Jul we added norethindrone and requested start of zepbound to help with weight management. We continued synthroid 100 mcg daily for thyroid management. We sent for DST to screen for hypercortisolism. Not completed. Sammi reports persistent fatigue despite starting Synthroid 125 mcg and complains of constipation. She has a BMI over 30 and was recently diagnosed with sleep apnea, awaiting a CPAP machine. She experienced hair loss with Topamax, which was discontinued. Recent labs show low-normal vitamin D, iron saturation of 14%, high triglycerides, and low HDL. She is following a protein-rich diet and has a prescription for Zepbound for weight loss, resent under the sleep apnea diagnosis. Follow-up is scheduled in 2-3 months. Patient reports persistent fatigue despite starting Synthroid 125 mcg. She also complains of feeling blocked. Her weight is 205 pounds with a BMI over 30. She was diagnosed with sleep apnea following a sleep test and is awaiting a CPAP machine and nasal device. Patient previously tried Topamax for migraines and weight loss but experienced hair loss as a side effect. She has borderline high insulin levels. Recent labs show low-normal vitamin D, iron saturation of 14%, fasting glucose of 86, elevated triglycerides, and low HDL. Kidney and liver functions are normal. Ferritin levels are not significantly low. Patient attempted to obtain Zepbound for weight loss, but it was not covered by her insurance. She reports that the prescription has been resent to the pharmacy under the sleep apnea diagnosis. Medical History - Hypothyroidism - Sleep apnea - Migraines (history of) - Obesity (BMI 30) Current and Past Medications and Supplements - Synthroid 125mcg - Topamax (past medication, discontinued due to hair loss) Social History - Diet: Eating plenty of protein, fiber, and drinking water N/A Review of Systems - General: Very tired - Gastrointestinal: Feels blocked (constipation) - Endocrine: Hair loss (previously from medication) - Neurological: Migraines (history of) labs from 07/31/24: 169/207/32/101 glucose 86 mg/dL insulin 26.7 uU/ml LFT normal Cr normal mag 2.1 mg/dL estradiol 104 pg/ml progesterone 5.7 ng/mL LH/FSH normal dheas 161 ug/mL acth 15.1 pg/ML testosterone 21 ng/dL TSH 0.57 uIU/mL FT4 1.15 ng/mL FT3 3.0 pg/ML TPO neg vit D 30 ng/mL a1c 5.3% iron sat 14% ferritin normal H/H normal Examination Category Sub-Category Detail Notes Category Not es General Examination Neck, thyroid : supple General normal, NAD, well no urished and hydrated, pleasant, obese
--- OUTSIDE RECORDS SUMMARY | 2024-10-28 11:20 | XMS_ITS ---
Author Organization [facility] Address [address] [facility] [place] [address] Care Team Providers Care Guyline Operator Name Role Phone Valeria Lee Primary Care Provider REASON FOR VISIT insurance Encounters Encounter Location Date Provider Diagnosis [facility] [address] [place] [address] 09/04/2024 Valeria Lee Plan Of Treatment No Information Progress Notes * Sammi LUNADOB:[birth year] (39 yo F)Acc No.[id number]:09/04/2024 Patient: Sammi HENNESSY :1985 A ge:39 Y S ex:Female Address:[address], [place], [address] * true * Date: Generated for Printi ng/Fakristoferg/eTransmitting on: 0 10/28/2024 11:20 AM PRECIPITATOR OPERATOR
--- OUTSIDE RECORDS SUMMARY | 2024-10-28 11:20 | XMS_ITS | Clinical Summary ---
Author Organization [facility] Address [address] [place] [address] Care Team Providers Care Newspaper Copy Editor Name Role Phone LeiXiomara Primary Care Provider [phone] Allergies No known active allergies Medications lorazepam 0.5 MG tablet Take 1 tablet by mouth 3 (three) times daily. Active spironolactone 50 MG tabletIndication s:Acne, unspecified acne type Take 1 tablet (50 mg total) by mouth daily. 90 tablet 1 0 Active venlafaxine XR (EFFEXOR XR) 37.5 MG 24 hr capsuleIndicatio ns:Anxiety Take 2 capsules (75 mg total) by mouth daily. 90 capsule 1 0 Active levothyroxine 25 MCG tabletIndication s:Hypothyroidism , unspecified type Take 2 tablets (50 mcg total) by mouth every morning. 180 tablet 1 0 Active Active Problems Problem Noted Date Diagnosed Date Osteoporosis 04/08/2019 Attention deficit disorder 09/06/2014 Tachycardia 06/26/2013 Migraine without aura and wi thout status migrainosus, not intractable 05/25/2013 Anxiety 11/25/2012 Raynaud's disease 10/20/2012 Immunizations Name Administration Dates Next Due Dtap (Generic) 04/24/1991,02/01/1988,02/22/1987 ,1985 Dtap/Hep B/Ipv 04/24/1991,02/01/1988,02/22/1987 ,1985 Hepatitis B 06/07/1998,07/30/1997,06/29/1997 Influenza Adult (Generic) 06/18/2019,09/2014,05/25/2014,05/28/2013,2011 MMR (Generic) 04/24/1991,08/22/1987 Td 06/27/1999 Family History Medical History Relation Comments Asthma Brother Cancer Father lung-smoker Heart Disease Father Kidney Stones Father hemophilliac Father Cancer Mother breast hemophilliac Son Relation Status Comments Brother Father Mother Son Social History Tobacco Use Types Packs/Day Years Used Date Smoking Tobacco: Never Smokeless Tobacco: Never Alcohol Use Standard Drinks/Week Comments No 0 (1 standard drink = 0.6 oz pur e alcohol) AUDIT-C Answer Date Recorded Frequency of Alcohol Consumption Never 10/08/2018 Average Number of Drinks Not on file 019 Frequency of Binge Drinking Not on file 09/26 Comments No Sex and Gender Information Value Date Recorded Sex Assigned at Not on file Legal Sex Female 5:05 PM CDT Gender Identity Not on file Sexual Orientation Not on file Last Filed Vital Signs Vital Sign Reading Time Taken Comments Blood Pressure 120/78 08/10/2019 7:30 AM PIPE THREADING MACHINE OPERATOR Pulse 80 08/10/2019 7:30 AM PIPE THREADING MACHINE OPERATOR Temperature 37.1 C (98.7 F) 08/10/2019 7:30 AM PIPE THREADING MACHINE OPERATOR Respiratory Rate 20 08/10/2019 7:30 AM PIPE THREADING MACHINE OPERATOR Oxygen Saturation 98% 08/10/2019 7:30 AM PIPE THREADING MACHINE OPERATOR Inhaled Oxygen Concentration - - Weight 73.5 kg (162 lb) 08/10/2019 7:30 AM PIPE THREADING MACHINE OPERATOR Height 161.3 cm (5' 3.5 ) 08/10/2019 7:30 AM PIPE THREADING MACHINE OPERATOR Body Mass Index 28.25 08/10/2019 7:30 AM PIPE THREADING MACHINE OPERATOR Plan of Treatment Health Maintenance Due Date Last Done Comments Cervical Cancer Screening Pap Smear (Age 30 to 64) Every 3 Years 1986 Annual Physical 1989 DTaP, Tdap and Td Vaccines (5 - Tdap) 06/28/1999 06/27/1999, 04/24/1991, 04/24/1991, Additional history exists Hepatitis C 2004 Cervical Cancer Screening Pap with HPV Testing (Age 30 to 64) Every 5 Years 2016 Cervical Cancer Screening with HPV 2016 COVID-19 Vaccine ( season) 2024 Influenza Adult (#1) 2024 06/18/2019, 05/27/2015, 05/25/2014, Additional history exists Hepatitis B Vaccines Completed 06/07/1998, 07/30/1997, 06/29/1997, Additional history exists HPV Vaccines Aged Out No longer eligi ble based on patient's age to complete this topic Meningococcal B Vaccine Aged Out No l onger eligible based on patient's age to complete this topic Meningococcal Vaccine Aged Out No catherine hossein eligible based on patient's age to complete this topic Pneumococcal Vaccine: Pediatrics (0 to 5 Years) and At-Risk Patients (6 to 64 Years) Aged Out No longer eligible based on patient's age to complete this topic RSV Immunizations Under 20 Months Aged Out No longer eligible based on patient's age to complete this topic Insurance Care Teams Newspaper Copy Editor Relationship Specialty Start Date End Date Xiomara Odom DO PCP - General FAMILY PRACTICE 03/30/21
--- OUTSIDE RECORDS SUMMARY | 2024-10-28 11:20 | XMS_ITS | Data Portability ---
Author Organization [place] [facility], Main Office Address [address] [place] [address] Assessment No assessment recorded. Plan of Treatment Reminders Order Date Submit Date Provider Last Modified By Organization Details Last Modified Time Details Appointments None recorded. Lab vitamin B12 + folate, serum or blood [address] [place] [address] (Lab), [address] [place] [address], [address], 3 09:35:31 lipid panel, serum [address] [place] [address] (Lab), [address] [place] [address], [address], 3 09:35:31 vitamin D, 25-hydroxy , total, serum [address] [place] [address] (Lab), [address] [place] [address], [address], 3 09:35:31 insulin, serum [address] (Lab), [address] [place] [address], [address], 3 09:35:31 HbA1c (hemoglobi n A1c), blood [address] [place] [address] (Lab), [address] [place] [address], [address], 3 09:35:31 T3, free, serum or plasma [address] [place] [address] (Lab), [address] [place] [address] [address], [place], [address], 3 09:35:31 TSH + free T4, serum [address] (Lab), [address] [place] [address] [address], [place], [address], 3 09:35:31 CMP, serum or plasma [address] (Lab), [address] [place] [address] [address], [place], [address], 3 09:35:31 Referral None recorded. Procedures None recorded. Surgeries None recorded. Imaging None recorded. Medication Orders Synthroid 125 mcg tablet 2022 023 [facility], [address] [place] [address], [address], [place], [address], 3 09:34:54 Patient TargetsNo targets recorded. Patient InstructionsNo instructions recorded. Reason for Referral None Reported. Results Created Date Observation Date Name Description Value Unit Range Abnormal Flag Note LastModifiedBy Organization Detail LastModifiedTime 07/05/20 21 07/08/2021 TESTO STERO NE, FREE (DIAL YSIS) AND TOTAL ,MS testosterone , total, MS 51 NG/dL 2-45 high For addit ional ashish gan e refer to https ://ed ucati on.qu calvin TicketForEvent. com/f aq/FA Q165 (This link is being provi ded for infor chana nal/e ducat ional purpo ses only. ) (Note ) This test was devel oped and its bert tical perfo rmanc e katherine cteri stics have been deter mined by [employer]. It has not been clear ed or appro joshua by the FDA. This assay has been valid ated pursu ant to the CLIA regul ation s and is used for clini shannan purpo ses. Not Available [facility] [facility] [address], [place], [address], 07/08/2021 12:41:47 07/05/20 21 07/08/2021 TESTO STERO NE, FREE (DIAL YSIS) AND TOTAL ,MS testosterone , free 4.6 pg/mL 0.1-6. 4 (Note ) This test was devel oped and its bert tical perfo rmanc e katherine cteri stics have been deter mined by [employer]. It has not been clear ed or appro joshua by the FDA. This assay has been valid ated pursu ant to the CLIA regul ation s and is used for clini shannan purpo ses. MDF med fusio n [address] [facility] [address] [place] [address] [phone] Dhiraj huerta MD Your reque st to have a [employer] bessie copy faxed has been sandra cano ed. Queue d to: [phone] Queue d to: [phone] Not Available [facility] [address] [address] [place], [address], 07/08/2021 12:41:47 07/05/20 21 07/08/2021 TESTO STERO NE, FREE (DIAL YSIS) AND TOTAL ,MS copy(ies) sent to: [facility] [employer] [facility] [address] [place] [address] Not Available [employer] [address] [address] [place], [address], 07/08/2021 12:41:47 07/05/20 21 07/08/2021 T3, FREE T3, free 2.9 pg/mL 2.3-4. 2 normal Not Available [employer] [address] [address] [place], [address], 07/08/2021 12:41:47 07/05/20 21 07/08/2021 T3, FREE copy(ies) sent to: [facility] [employer] [facility] [address] [place] [address] Not Available [employer] [address] [address] [place], [address], 07/08/2021 12:41:47 07/05/2007/08/2021 VITAM IN B12/F OLATE , SERUM PANEL vitamin B12 435 pg/mL 200-11 00 normal Not Available [address], [address], 07/08/2021 12:41:46 07/05/2007/08/2021 VITAM IN B12/F OLATE , SERUM PANEL folate, serum 21.6 NG/mL normal Refer ence Range Low: <3.4 Borde rline : 3.4-5 .4 Pamela l: >5.4 Not Available [address], [address], 07/08/2021 12:41:46 07/05/2007/08/2021 VITAM IN B12/F OLATE , SERUM PANEL copy(ies) sent to: [facility] [employer] [facility] [address] [place] [address] Not Available [address], [address], 07/08/2021 12:41:46 07/05/2007/08/2021 TSH TSH 5.38 mIU/L high Refer ence Range > or = 20 Years 0.40- 4.50 Pregn shelly Range s First trime ster 0.26- 2.66 Secon d trime ster 0.55- 2.73 Third trime ster 0.43- 2.91 Not Available [address] [address] [place], [address], 07/08/2021 12:41:46 07/05/2007/08/2021 TSH copy(ies) sent to: [facility] [employer] [facility] [address] [place] [address] Not Available [address] [place], [address], 07/08/2021 12:41:46 07/05/2007/08/2021 T4, FREE T4, free 1.0 NG/dL 0.8-1. 8 normal Not Available [facility] [address] [place], [address], 07/08/2021 12:41:45 07/05/20 21 07/08/2021 T4, FREE copy(ies) sent to: [facility] [employer] [facility] [address] [place] [address] Not Available [employer] [address] [address] [place], [address], 07/08/2021 12:41:45 07/05/2007/08/2021 INSUL IN insulin 19.1 uIU/m L normal Refer ence Range < or = 19.6 Risk: Optim al < or = 19.6 Moder ate NA High >19.6 Adult cardi ovasc ular event risk categ ory cut point s (opti mal, moder ate, high) are based on [facility] s popul ation data from 08/14 11. This insul in assay shows stron g cross -reac tivit y for some insul in analo gs (lisp ro, aspar t, and glarg ine) and much lower cross -reac tivit y with other s (dete jane, gluli sine) . Not Available [employer] [address] [address] [place], [address], 07/08/2021 12:41:45 07/05/2007/08/2021 INSUL IN copy(ies) sent to: [facility] [employer] [facility] [address] [place] [address] Not Available [employer] [address] [address] [place], [address], 07/08/2021 12:41:45 07/05/2007/08/2021 DHEA SULFA TE DHEA sulfate 257 mcg/d L 23-266 normal Not Available [employer] [address] [address] [place], [address], 07/08/2021 12:41:44 07/05/2007/08/2021 DHEA SULFA TE copy(ies) sent to: [facility] [address] [place] [address] Not Available [address] [address] [place], [address], 07/08/2021 12:41:44 07/05/2007/08/2021 COMPR EHENS JULIA METAB OLIC PANEL glucose 81 mg/dL 65-99 normal Fasti ng refer ence inter valencia Not Available [address] [place], [address], 07/08/2021 12:41:44 07/05/2007/08/2021 COMPR EHENS JULIA METAB OLIC PANEL urea nitrogen (BUN) 14 mg/dL 7-25 normal Not Available [address], [address], 07/08/2021 12:41:44 07/05/20 21 07/08/2021 COMPR EHENS JULIA METAB OLIC PANEL creatinine 0.78 mg/dL 0.50-1 .10 normal Not Available [address], [address], 07/08/2021 12:41:44 07/05/20 21 07/08/2021 COMPR EHENS JULIA METAB OLIC PANEL eGFR non-afr. belgian 98 mL/mi n/1.7 3m2 > or = 60 normal Not Available [address] [address] [place], [address], 07/08/2021 12:41:44 07/05/20 21 07/08/2021 COMPR EHENS JULIA METAB OLIC PANEL eGFR 114 mL/mi n/1.7 3m2 > or = 60 normal Not Available [address] [address] [place], [address], 07/08/2021 12:41:44 07/05/20 21 07/08/2021 COMPR EHENS JULIA METAB OLIC PANEL BUN/creatini ne ratio not applic able (calc ) 6-22 Not Available [address], [address], 07/08/2021 12:41:44 07/05/20 21 07/08/2021 COMPR EHENS JULAI METAB OLIC PANEL sodium 141 mmol/ L 135-14 6 normal Not Available [address], [address], 07/08/2021 12:41:44 07/05/20 21 07/08/2021 COMPR EHENS JULIA METAB OLIC PANEL potassium 4.4 mmol/ L 3.5-5. 3 normal Not Available [address], [address], 07/08/2021 12:41:44 07/05/20 21 07/08/2021 COMPR EHENS JULIA METAB OLIC PANEL chloride 104 mmol/ L 98-110 normal Not Available [address], [address], 07/08/2021 12:41:44 07/05/20 21 07/08/2021 COMPR EHENS JULIA METAB OLIC PANEL carbon dioxide 24 mmol/ L 20-32 normal Not Available [address], [address], 07/08/2021 12:41:44 07/05/20 21 07/08/2021 COMPR EHENS JULIA METAB OLIC PANEL calcium 9.4 mg/dL 8.6-10 .2 normal Not Available [address], [address], 07/08/2021 12:41:44 07/05/20 21 07/08/2021 COMPR EHENS JULIA METAB OLIC PANEL protein, total 7.0 g/dL 6.1-8. 1 normal Not Available [address] [place], [address], 07/08/2021 12:41:44 07/05/20 21 07/08/2021 COMPR EHENS JULIA METAB OLIC PANEL albumin 4.3 g/dL 3.6-5. 1 normal Not Available [address], [address], 07/08/2021 12:41:44 07/05/20 21 07/08/2021 COMPR EHENS JULIA METAB OLIC PANEL globulin 2.7 g/dL_ (calc ) 1.9-3. 7 normal Not Available [address], [address], 07/08/2021 12:41:44 07/05/20 21 07/08/2021 COMPR EHENS JULIA METAB OLIC PANEL albumin/glob ulin ratio 1.6 (calc ) 1.0-2. 5 normal Not Available [address] [address] [place], [address], 07/08/2021 12:41:44 07/05/20 21 07/08/2021 COMPR EHENS JULIA METAB OLIC PANEL bilirubin, total 0.3 mg/dL 0.2-1. 2 normal Not Available [address], [address], 07/08/2021 12:41:44 07/05/20 21 07/08/2021 COMPR EHENS JULIA METAB OLIC PANEL alkaline phosphatase 64 U/L 31-125 normal Not Available [facility] [employer] [address] [address] [place], [address], 07/08/2021 12:41:44 07/05/20 21 07/08/2021 COMPR EHENS JULIA METAB OLIC PANEL AST 10 U/L 10-30 normal Not Available [address] [address] [place], [address], 07/08/2021 12:41:44 07/05/20 21 07/08/2021 COMPR EHENS JULIA METAB OLIC PANEL ALT 8 U/L 6-29 normal Not Available [employer] [facility] [address] [address], [place], [address], 07/08/2021 12:41:44 07/05/20 21 07/08/2021 COMPR EHENS JULIA METAB OLIC PANEL copy(ies) sent to: [facility] [address] [place] [address] Not Available [employer] [facility] [address] [address], [place], [address], 07/08/2021 12:41:44 05/30/20 21 05/30/2021 US, pelvi s, trans abdom inal + trans vagin al No observ ation record ed. [id number] [place] [address], [address], 10/24/2022 20:27:55 07/18/20 21 07/18/2021 CT, neck, soft tissu e, w/wo contr ast No observ ation record ed. [id number] [place] [address] (Imaging) [address] [place] [address], [address], 10/24/2022 20:27:55 07/27/20 21 07/27/2021 MAMMO , diagn ostic , digit al, bilat eral No observ ation record ed. [id number] [place] [address], [address], 10/24/2022 20:27:55 04/12/20 22 04/12/2022 US, thyro id No observ ation record ed. [id number] [place] [address], [place], [address], 10/24/2022 20:27:55 Result Notes None recorded. 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 Not Available [facility] 3 20:25:49 Hypothyroidis m due to Cheri's thyroiditis 760258842 Active 2022 Valeria Lee MD [address], [address] , [employer] 3 10:25:23 Prediabetes 444324129 Active 2022 Valeria Lee MD [address] [employer] [place], [address] , [address] 3 10:25:37 Hypothyroidis m 35068193 Active 2022 Valeria Lee MD [address] [place], [address] , [address] 3 10:28:26 Loss of hair 234944985 Active 2022 Valeria Lee MD [address] [place], [address] , [address] 3 10:28:32 Vitamin B12 deficiency (non anemic) 29186430 Active 2022 Valeria Lee MD [address], [address] , [address] 3 09:33:32 Vitamin D deficiency 92628393 Active 2022 Valeria Lee MD [address], [address] , [address] 3 09:33:47 Hypertriglyce ridemia 789524962 Active 2022 Valeria Lee MD [address], [address] , [address] 3 09:34:42 Problem Notes None recorded. Procedures Surgical History Date Name Laterality Status Provider Name and Address Organization Details Recorded Time 07/27/20 21 Most Recent Mammogram completed Not Available [facility] 10/24/2022 20:24:10 03/04/20 19 other completed Not Available [facility] 10/24/2022 20:24:11 03/04/20 19 [employer] Procedure completed Not Available [facility] 10/24/2022 20:24:11 03/04/20 19 Hysteroscopy biopsy completed Not Available [facility] 10/24/2022 20:24:11 08/21/20 18 Date of Last Pap Smear completed Not Available [facility] 10/24/2022 20:24:10 09/25/19 13 [employer] Procedure completed Not Available [facility] 10/24/2022 20:24:11 11/17/19 11 [employer] Procedure completed Not Available [facility] 10/24/2022 20:24:11 Cholecystectomy completed Not Available [facility] 10/24/2022 20:24:11 Imaging Results Imaging Date Name Status LastModified by Organization Details LastModified Time 05/30/2021 US, pelvis, transabdominal + transvaginal completed [id number], [address], 10/24/2022 20:27:55 07/27/2021 MAMMO, diagnostic, digital, bilateral completed [id number] [address], [address], 10/24/2022 20:27:55 07/18/2021 CT, neck, soft tissue, w/wo contrast completed [id number] 0057 [facility] (Imaging) [address] [place] [address], [address], 10/24/2022 20:27:55 04/12/2022 US, thyroid completed [id number], [address], 10/24/2022 20:27:55 Procedure Notes None recorded. Medical Equipment None Reported. Allergies No known drug allergies Medications Name Sig Start Date Stop Date Status Note LastModified by Organization Details LastModified Time amoxicillin 500 mg capsule TAKE 1 CAPSULE BY MOUTH EVERY 8 HOURS FOR 10 DAYS 02/01 completed Not Available Not Available Not Available methocarbam ol 500 mg tablet 09/27 /2021 completed Not Available Not Available Not Available buspirone 5 mg tablet TAKE 1 TABLET BY MOUTH TWICE A DAY 07/07 completed Not Available Not Available Not Available bupropion HCl SR 150 mg tablet,12 hr sustained-r elease TAKE 2 TABLETS BY MOUTH EVERY DAY 03/29 completed Not Available Not Available Not Available venlafaxine ER 37.5 mg capsule,ext ended release 24 hr TAKE 1 CAPSULE BY MOUTH EVERY DAY 05/22 completed Not Available Not Available Not Available prednisone 10 mg tablet TAKE 3 TABS DAILY FOR 3 DAYS THEN 2 TABS DAILY FOR 3 DAYS THEN 1 TAB DAILY FOR 3 DAYS TAKE WITH FOOD 06/11 completed Not Available Not Available Not Available doxycycline hyclate 100 mg capsule TAKE 1 CAPSULE BY MOUTH TWICE A DAY 11/30 completed Not Available Not Available Not Available cefuroxime axetil 250 mg tablet TAKE 1 TABLET BY MOUTH TWICE A DAY 03/29 completed Not Available Not Available Not Available azithromyci n 250 mg tablet TAKE 2 TABLETS BY MOUTH TODAY, THEN TAKE 1 TABLET DAILY FOR 4 DAYS 06/11 completed Not Available Not Available Not Available tretinoin 0.025 % topical cream APPLY TO AFFECTED AREA AT BEDTIME 06/11 completed Not Available Not Available Not Available ondansetron HCl 4 mg tablet TAKE 1 TABLET EVERY 6-8 HOURS NEEDED. 03/29 completed Not Available Not Available Not Available Synthroid 125 mcg tablet Take 1 tablet every day by oral route in the morning for 90 days. 2022 active Not Available Not Available Not Avai lable prednisone 20 mg tablet TAKE 1 TABLET BY MOUTH DAILY active Not Available Not Available No t Available Synthroid 100 mcg tablet TAKE ONE TABLET EVERY MORNING FOR HYPOTHYRO IDISM 2022 active Not Available Not Available Not Avai lable clonazepam 0.5 mg tablet 07/07 completed Not Available Not Available Not Available spironolact one 100 mg tablet TAKE 1 TABLET BY MOUTH EVERY DAY active Not Available Not Available No t Available propranolol ER 60 mg capsule,24 hr,extended release TAKE 1 CAPSULE BY MOUTH EVERY DAY IN THE EVENING FOR 30 DAYS 02/01 completed Not Available Not Available Not Available prednisone 5 mg tablet 02/01 completed Not Available Not Available Not Available clonazepam 1 mg tablet TAKE 1 TABLET BY MOUTH TWICE A DAY 02/01 completed Not Available Not Available Not Available phentermine 15 mg capsule TAKE 1 CAPSULE BY MOUTH EVERY DAY 06/11 completed Not Available Not Available Not Available topiramate 25 mg tablet TAKE 1 TABLET BY MOUTH TWICE A DAY FOR THE FIRST WEEK THEN INCREASE DOSE TO 2 TABLETS TWICE DAILY 11/30 completed Not Available Not Available Not Available phentermine 37.5 mg tablet TAKE 1 TABLET BY MOUTH DAILY MUST ADMINISTE R 30 MINUTES BEFORE OR 1-2 HOURS AFTER BREAKFAST active Not Available Not Available No t Available sulfamethox azole 800 mg-trimetho prim 160 mg tablet TAKE 1 TABLET BY MOUTH TWICE A DAY 03/29 completed Not Available Not Available Not Available omeprazole 40 mg capsule,del ayed release active Not Available Not Available Not Available liothyronin e 5 mcg tablet TAKE 1 TABLET BY MOUTH TWICE DAILY ON AN EMPTY STOMACH active Not Available Not Available No t Available spironolact one 25 mg tablet TAKE 1 TABLET BY MOUTH ONCE DAILY 04/05 completed Not Available Not Available Not Available amoxicillin 500 mg tablet TAKE 2 TABLETS BY MOUTH EVERY 12 HOURS FOR 10 DAYS 11/30 completed Not Available Not Available Not Available levothyroxi ne 25 mcg tablet TAKE 1 TABLET ONCE A DAY ON EMPTY STOMACH 03/29 completed Not Available Not Available Not Available levothyroxi ne 88 mcg tablet Take 1 tablet every day by oral route in the morning for 90 days. active Not Available Not Available No t Available amoxicillin 875 mg tablet TAKE 1 TABLET BY MOUTH TWICE DAILY FOR 10 DAYS 04/05 completed Not Available Not Available Not Available lorazepam 0.5 mg tablet TAKE 1 TABLET BY MOUTH DAILY NEEDED FOR ANXIETY active Not Available Not Available No t Available dicyclomine 20 mg tablet TAKE 1/2 TABLET BY MOUTH 3 TIMES A DAY 03/29 completed Not Available Not Available Not Available Kenalog 10 mg/mL suspension for injection In office injection administe red by the provider 12/30 completed [facility]: 0003- 0494- 20 Not Available Not Available Not Available meclizine 25 mg tablet TAKE 1 TABLET BY MOUTH THREE TIMES A DAY NEEDED FOR DIZZINESS 02/01 completed Not Available Not Available Not Available levothyroxi ne 50 mcg tablet TAKE 1 TABLET BY MOUTH ONCE DAILY IN THE MORNING 04/05 completed Not Available Not Available Not Available cephalexin 500 mg capsule TAKE 1 CAPSULE BY MOUTH THREE TIMES DAILY 04/05 completed Not Available Not Available Not Available paroxetine 20 mg tablet Take 1 tablet every day by oral route in the morning for 30 days. 06/11 completed Not Available Not Available Not Available progesteron e micronized 200 mg capsule TAKE 1 CAPSULE AT BEDTIME DAYS 15 28 OF CYCLE, UNLESS CYCLE STARTS SOONER 07/07 completed Not Available Not Available Not Available sertraline 25 mg tablet TAKE 1 TABLET BY MOUTH EVERY DAY 02/01 completed Not Available Not Available Not Available diclofenac sodium 75 mg tablet,keisha yed release 02/01 completed Not Available Not Available Not Available mupirocin 2 % topical ointment APPLY OINTMENT EXTERNALL Y TO AFFECTED AREA TWICE DAILY 04/05 completed Not Available Not Available Not Available furosemide 20 mg tablet TAKE 1 TABLET BY MOUTH EVERY MORNING NEEDED FOR EDEMA active Not Available Not Available No t Available Synthroid 112 mcg tablet Take 1 tablet every day by oral route in the morning for 90 days. 02/01 completed Not Available Not Available Not Available metoprolol succinate ER 25 mg tablet,exte nded release 24 hr TAKE 1 TABLET BY MOUTH EVERY DAY active Not Available Not Available No t Available loteprednol etabonate 0.5 % eye drops,suspe nsion 06/11 completed Not Available Not Available Not Available azelastine 137 mcg (0.1 %) nasal spray INSTIL 2 PUFFS INTO EACH NOSTRIL TWICE DAILY FOR 10 DAYS 03/29 completed Not Available Not Available Not Available hydroxychlo roquine 200 mg tablet 02/01 completed Not Available Not Available Not Available methylpredn isolone 4 mg tablets in a dose pack TAKE 6 TABLETS ON DAY 1 DIRECTED ON PACKAGE AND DECREASE BY 1 TAB EACH DAY FOR A TOTAL OF 6 DAYS 02/01 completed Not Available Not Available Not Available albuterol sulfate HFA 90 mcg/actuati on aerosol inhaler INHALE 1 TO 2 PUFFS BY MOUTH EVERY 4-6 HOURS NEEDED active Not Available Not Available No t Available norethindro ne (contracept julia) 0.35 mg tablet TAKE 1 TABLET BY MOUTH EVERY DAY 03/29 completed Not Available Not Available Not Available ondansetron 4 mg disintegrat ing tablet TAKE 1 TABLET BY MOUTH EVERY 4 TO 6 HOURS NEEDED active Not Available Not Available No t Available cefdinir 300 mg capsule TAKE 1 CAPSULE BY MOUTH TWICE DAILY FOR 10 DAYS 06/11 completed Not Available Not Available Not Available fluoxetine 20 mg capsule TAKE 1 CAPSULE BY MOUTH EVERY DAY 06/11 completed Not Available Not Available Not Available metformin ER 500 mg tablet,exte nded release 24 hr TAKE 1 TABLET BY MOUTH DAILY active Not Available Not Available No t Available sertraline 50 mg tablet TAKE 1 TABLET BY MOUTH ONCE DAILY 04/05 completed Not Available Not Available Not Available phentermine 37.5 mg capsule TAKE 1 CAPSULE BY MOUTH ONCE DAILY 04/05 completed Not Available Not Available Not Available spironolact one 50 mg tablet TAKE 1 TABLET BY MOUTH EVERY DAY active Not Available Not Available No t Available escitalopra m 10 mg tablet TAKE 1 1/2 TABLET BY MOUTH EVERY DAY active Not Available Not Available No t Available escitalopra m 20 mg tablet TAKE 1 TABLET BY MOUTH EVERY DAY 05/22 completed Not Available Not Available Not Available cholestyram ine (with sugar) 4 gram powder for susp in a packet MIX 1 PACKET IN 4 OUNCES OF WATER AT BEDTIME 03/29 completed Not Available Not Available Not Available bupropion HCl XL 300 mg 24 hr tablet, extended release TAKE 1 TABLET BY MOUTH IN THE MORNING 11/30 completed Not Available Not Available Not Available bupropion HCl XL 150 mg 24 hr tablet, extended release TAKE 1 TABLET BY MOUTH EVERY MORNING 11/30 completed Not Available Not Available Not Available 09/14 (28) 1 mg-20 mcg (21)/75 mg (7) tablet TAKE 1 TABLET BY MOUTH EVERY DAY 03/29 completed Not Available Not Available Not Available escitalopra m 5 mg tablet TAKE 2 TABLETS BY MOUTH EVERY DAY active Not Available Not Available No t Available topiramate 50 mg tablet TAKE 1 TABLET BY MOUTH TWICE A DAY 06/11 completed Not Available Not Available Not Available duloxetine 20 mg capsule,del ayed release TAKE 1 CAPSULE BY MOUTH DAILY 06/11 completed Not Available Not Available Not Available Synthroid 88 mg 04/05 completed Not Available Not Available Not Available lidocaine (PF) 10 mg/mL (1 %) injection solution In office injection administe red by the provider 03/07 completed [facility]: 0409- 4276- 17 Not Available Not Available Not Available Azurette (28) 0.15 mg-0.02 mg (21)/0.01 mg (5) tablet 04/05 completed Not Available Not Available Not Available Vestura (28) 3 mg-0.02 mg tablet TAKE 1 TABLET BY MOUTH EVERY DAY 06/11 completed Not Available Not Available Not Available Ozempic 0.25 mg or 0.5 mg (2 mg/1.5 mL) subcutaneou s pen injector INJECT 0.25MG SUBCUTANE OUSLY EVERY WEEK 06/11 completed Not Available Not Available Not Available Altreno 0.05 % lotion APPLY 1 APPLICATI ON TOPICALLY EVERY EVENING active Not Available Not Available No t Available Ozempic 1 mg/dose (4 mg/3 mL) subcutaneou s pen injector Inject 1 mg every week by subcutane ous route at dinner for 90 days. 06/11 completed Not Available Not Available Not Available Vitals Date Recorded Body mass index (BMI) Body height Body temperature Body weight Systolic blood pressure Diastolic blood pressure Provider Name and Address Organization Details Last Updated DateTime 1 31.9 kg/m2 160.02 cm 97.6 [degF] 27552.6 3 g 114 mm[Hg] 76 mm[Hg] Not Available [facility] 3 20:24:46 Date Recorded Body mass index (BMI) Body height Oxygen saturation Oxygen saturation in Arterial blood by Pulse oximetry Heart rate Body temperature Body weight Systolic blood pressure Diastolic blood pressure Provider Name and Address Organization Details Last Updated DateTime 2 31.9 kg/m2 160.02 cm 98 % 98 % 89 /min 97.7 [degF] 18290.6 3 g 100 mm[Hg] 75 mm[Hg] Not Available [facility] 3 20:24:46 Date Recorded Body mass index (BMI) Body height Heart rate Body temperature Body weight Systolic blood pressure Diastolic blood pressure Provider Name and Address Organization Details Last Updated DateTime 2 33.3 kg/m2 160.02 cm 78 /min 97.8 [degF] 08970.6 5 g 118 mm[Hg] 82 mm[Hg] Not Available [facility] 3 20:24:46 Date Recorded Body height Body mass index (BMI) Body weight Body temperature Heart rate Systolic blood pressure Diastolic blood pressure Provider Name and Address Organization Details Last Updated DateTime 3 160.02 cm 33.3 kg/m2 28623.0 8 g 97.5 [degF] 69 /min 115 mm[Hg] 80 mm[Hg] Cuca Durham JANESSA [facility] 3 09:19:35 Social History Question Answer Notes LastModified by Like[email or web address] Details LastModified Time Tobacco Smoking Status Never Smoker Not Available [facility] 10/24/2022 20:23:57 What Is Your Level Of Alcohol Consumption? Occasional [id number] Information not available 10/24/2022 What Is Your Level Of Caffeine Consumption? Occasional MIGRATION.[id number] Information not available 10/24/2022 How Much Tobacco Do You Chew? None MIGRATION.[id number] Information not available 10/24/2022 In The 14 Days Before Symptom Onset, Have You Had Close Contact With A Laboratory-confir med COVID-19 While That Case Was Ill? No [id number] Information not available 10/24/2022 In The 14 Days Before Symptom Onset, Have You Had Close Contact With A Person Who Is Under Investigation For COVID-19 While That Person Was Ill? No [id number] Information not available 10/24/2022 Do You Or Have You Ever Used E-cigarettes Or Vape? 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 MIGRATION.[id number] Information not available 10/24/2022 Do You Use Your Seat Belt Or Car Seat Routinely? Yes [id number] Information not available 10/24/2022 Do You Or Have You Ever Used Smokeless Tobacco? Never Used Smokeless Tobacco MIGRATION.842761 1391 Information not available 10/24/2022 Do You Use Any Illicit Or Recreational Drugs? No MIGRATION.[id number] 5182 Information not available 10/24/2022 Have You Recently Traveled Abroad? No MIGRATION.[id number] 0062 Information not available 10/24/2022 Sex: Female Functional Status Question Answer Note LastModified by Organizat ion Details LastModified Time What is your exercise level? Occasional [id number] Information not available 10/24/2022 Mental Status None recorded. Family History Relationship Description Onset Age of this Age Resolved Age Notes LastModified by Organization Details LastModified Time Father Malignant tumor of lung [id number] Not available 10/24/2022 20:24:12 Father Heart disease MIGRATION.053 [id number] Not available 10/24/2022 20:24:12 Father Hypercholest erolemia MIGRATION.377 [id number] Not available 10/24/2022 20:24:12 Father Hemophilia MIGRATION.874 [id number] Not available 10/24/2022 20:24:12 Mother Hypercholest erolemia MIGRATION.017 [id number] Not available 10/24/2022 20:24:12 Mother Malignant tumor of breast MIGRATION.337 [id number] Not available 10/24/2022 20:24:12 Son Hemophilia MIGRATION.337 [id number] Not available 10/24/2022 20:24:12 Sister Cheri thyroiditis MIGRATION.088 [id number] Not available 10/24/2022 20:24:12 Medical History Condition Response THYROID DISEASE Y HEADACHES/MIGRAINES Y HYPERTENSION N HYPOTHYROIDISM Y Gynecological History Statement/Question Response Abnormal Pap Y Date of LMP 05/15/2021 Date of Last Pap Smear 08/21/2018 Current Control Method Partner Vas ectomy Age at Menarche 13 Most Recent Mammogram 07/27/2021 Obstetrics History GPAL:G 3 P 3 0 0 3 Type Value Full Term 3 Living 3 Total 3 Past Encounters Encounter ID Performer Location Encounter Start Date Encounter Closed Date Diagnosis/Indication Diagnosis SNOMED-CT Code Diagnosis ICD10 Code Diagnosis Note [id number] _ATHENA_M IGRATION_ DEFAULT_1 _1 , 11/30/2020 00:00:00 11/30/2020 14:06:54 [id number] [facility] [address] [place] [address] 12/30/2020 00:00:00 12/30/2020 13:37:02 [id number] [facility] [address] [place] [address] 03/07/2021 00:00:00 03/07/2021 17:17:59 [id number] _ATHENA_M IGRATION_ DEFAULT_1 _1 , 05/22/2021 00:00:00 05/22/2021 10:16:15 [id number] [facility] [address] [place] [address] 07/07/2021 00:00:00 07/07/2021 16:24:56 [id number] [facility] [address] [place], [place] [address] 11/27/2021 00:00:00 11/27/2021 15:25:13 [id number] [facility] [address] [place] [address] 06/11/2022 00:00:00 06/11/2022 14:01:25 [id number] Valeria Lee MD [facility] [address] [place], [place] [address] 02/01/2023 09:00:53 02/01/2023 09:44:49 Hypothyroidism 32879910 E03.9 FT4 low normal range with continued fatigue and inability to lose weight- will uptitrate synthroid to 125 mcg daily. She was reminded to take her synthroid on empty stomach with glass of water and wait one hour to eat or have her coffee in morning and up to 4 hours if ever taking any heartburn or reflux medication s to help optimize absorption . Discussed paleo like diet with restrictio n of GMOs to help with energy and to optimize absorption of vitamins and minerals and reduce inflammati on. Provided informatio n on AIP diet. Prediabetes [id number] R7 3.03 A1C of 5% in range- patient did not tolerate ozempic well in the past with severe nausea- weight stable but glucose in ideal range. Recommende d she incorporat e natural insulin cane piler s such as pears, apples, cinnamon, kaitlin and sweet potatoes to help mobilize her endogenous insulin. Recommende d up to 150 minutes of moderate level activity/e xercise weekly. Vitamin B1 2 deficiency (non anemic) 70229258 E53.8 Agree with B12 injections starting at once weekly x 4 weeks then every other week thereafter to maintain levels. She will get through PCP. Vitamin D deficiency 347 45767 E55.9 Recommend she start on a low dose of 7973-0210 IU of vitamin D 3 daily until we can obtain current levels-thi s is important in bone metabolism , immune response and energy among multiple health benefits. Hypertriglyceridemia 302 801576 E78.1 She recently started fish oil- need to monitor lipid panel. Spent up to 28 minutes preparing to see the patient (eg, review of tests), obtaining and/or reviewing separately obtained history, performing a medically appropriat e examinatio n and evaluation , counseling and educating the patient, ordering medication s, tests, along with documentin g clinical informatio n in the electronic health record, charleneen andreay interpreti ng results and communicat ing results to the patient. RTC in 4 months. Patient was provided a handwritte n lab order which contains our fax number. If she chooses to go outside of the [facility] system to obtain labwork she was advised to provide our fax number and my informatio n to the lab she will be obtaining labwork from in order to have her labs properly forwarded over for me to review so there is no loss of follow up due to use of outside network. She was also advised to contact our clinic informing us that she has completed her labwork so we are aware we will need to reach out to the appropriat e laboratory to request her results be forwarded to us so I might have the ability to review and make further medical decision making in her case. She voiced understand ing. Health Concerns Section Related Observation LastModified by Organization Detai ls LastModified Time None Recorded Concern Status LastModified by Organization Details LastModified Time None Recorded Advance Directives Directive None Recorded Payers Encounter Date Sequence Insurance Name Policy Number Policy Crawford Covered Member ID Crawford Member ID Guarantor Name 02/01/2023 1 [facility] [id number] Sammi Carnes [id number] Sammi Carnes Notes Date Note Type Note Provider Name and Address Organization Details Recorded Time 02/01/2023 text/html 37 yo female comes in for follow up in management of hypothyroidism, PCOS and B12 deficiency. last seen in May at that time we increased synthroid to 112 mcg daily. we continued slynd for hormone control She has fatigue and feels like she struggles more in the afternoon with energy. In the morning she does well and as the day goes on she is ready for bed and runs out. She will start B12 injections with her PCP. She is now on 10 mg of lexapro for anxiety and feels its helping more. She has since started fish oil OTC for high TG. She did try the ozempic for a few weeks and dropped 10 pounds but she was extremely sick after 4-5 weeks. labs from 11/15:TSH of 2.670 uIU/mlFT4 of 0.85 ng/dLTPO negFT3 of 2.8 nlyL224/341/29/10 9a1c 5%serotonin low 31vit D 29.3 ng/mlB12/folate normal Valeria Lee MD [address] [facility], [facility] [address], [place], [address], [facility] [employer] [facility] 02/01/2023 09:51:54 OBGyn Episode No OBEpisode recorded.
--- OUTSIDE RECORDS SUMMARY | 2024-10-28 11:20 | XMS_ITS | Referral Summary ---
Author Organization [facility] Address [address] [place] [address] Care Team Providers Care Knifeman Name Role Phone Flor Rodriguez Primary Care Provider [phone] Philipp Sherman MD Unavailable [phone] Leobardo Turk MD Unavailable [phone] Encounters Date Type Department Care Team Description 10/01/2024 Telephone [facility] [address] Room [address] (Third Floor) [place] [address] Ivonne Vaughn RN [place] Employee Screening 07/31/2024 9:31 AM PARTITION NOTCHER - 07/31/2024 11:59 PM PARTITION NOTCHER Hospital Encounter [address] [address] Chronic lymphocytic thyroiditis; Polycystic ovaries; Avitaminosis D; Obesity, unspecified; Impaired fasting glucose; Screening for lipoid disorders Discharge Disposition: Discharge to home or self care 07/31/2024 9:15 AM PARTITION NOTCHER Lab [facility] Outpatient Lab at [address] [address] Chronic lymphocytic thyroiditis (Primary Dx); Polycystic ovaries; Avitaminosis D; Obesity, unspecified; Impaired fasting glucose; Screening for lipoid disorders from Last 3 Months Allergies No known active allergies Medications No known medications Active Problems No known active problems Social History Tobacco Use Types Packs/Day Years Used Date Smoking Tobacco: Never Assessed Comments Unknown Sex and Gender Information Value Date Recorded Sex Assigned at Not on file Legal Sex Female 8:12 PM PARTITION NOTCHER Gender Identity Not on file Sexual Orientation Not on file Plan of Treatment Not on file Procedures Procedure Name Priority Date/Time Associated Diagnosis Comments EGFR Routine 07/31/2024 9:31 AM PARTITION NOTCHER Chronic lymphocytic thyroiditis Polycystic ovaries Avitaminosis D Obesity, unspecified Impaired fasting glucose Screening for lipoid disorders DIFFERENTIAL AUTO Routine 07/31/2024 9:3 1 AM PARTITION NOTCHER Chronic lymphocytic thyroiditis Polycystic ovaries Avitaminosis D Obesity, unspecified Impaired fasting glucose Screening for lipoid disorders ACTH Routine 07/31/2024 9:31 AM PARTITION NOTCHER Chronic lymphocytic thyroiditis Polycystic ovaries Avitaminosis D Obesity, unspecified Impaired fasting glucose Screening for lipoid disorders CORTISOL Routine 07/31/2024 9:31 AM PARTITION NOTCHER Chronic lymphocytic thyroiditis Polycystic ovaries Avitaminosis D Obesity, unspecified Impaired fasting glucose Screening for lipoid disorders DHEA-SULFATE Routine 07/31/2024 9:31 AM PARTITION NOTCHER Chronic lymphocytic thyroiditis Polycystic ovaries Avitaminosis D Obesity, unspecified Impaired fasting glucose Screening for lipoid disorders FERRITIN Routine 07/31/2024 9:31 AM PARTITION NOTCHER Chronic lymphocytic thyroiditis Polycystic ovaries Avitaminosis D Obesity, unspecified Impaired fasting glucose Screening for lipoid disorders FOLLICLE STIMULATING HORMONE Routine 07/31/2024 9:31 AM PARTITION NOTCHER Chronic lymphocytic thyroiditis Polycystic ovaries Avitaminosis D Obesity, unspecified Impaired fasting glucose Screening for lipoid disorders HEMOGLOBIN A1C Routine 07/31/2024 9:31 AM PARTITION NOTCHER Chronic lymphocytic thyroiditis Polycystic ovaries Avitaminosis D Obesity, unspecified Impaired fasting glucose Screening for lipoid disorders INSULIN, TOTAL Routine 07/31/2024 9:31 AM PARTITION NOTCHER Chronic lymphocytic thyroiditis Polycystic ovaries Avitaminosis D Obesity, unspecified Impaired fasting glucose Screening for lipoid disorders LUTEINIZING HORMONE (LH) Routine 07/31/2024 9:31 AM PARTITION NOTCHER Chronic lymphocytic thyroiditis Polycystic ovaries Avitaminosis D Obesity, unspecified Impaired fasting glucose Screening for lipoid disorders MAGNESIUM Routine 07/31/2024 9:31 AM PARTITION NOTCHER Chronic lymphocytic thyroiditis Polycystic ovaries Avitaminosis D Obesity, unspecified Impaired fasting glucose Screening for lipoid disorders PROGESTERONE Routine 07/31/2024 9:31 AM PARTITION NOTCHER Chronic lymphocytic thyroiditis Polycystic ovaries Avitaminosis D Obesity, unspecified Impaired fasting glucose Screening for lipoid disorders T4, FREE Routine 07/31/2024 9:31 AM PARTITION NOTCHER Chronic lymphocytic thyroiditis Polycystic ovaries Avitaminosis D Obesity, unspecified Impaired fasting glucose Screening for lipoid disorders TSH Routine 07/31/2024 9:31 AM PARTITION NOTCHER Chronic lymphocytic thyroiditis Polycystic ovaries Avitaminosis D Obesity, unspecified Impaired fasting glucose Screening for lipoid disorders ESTRADIOL Routine 07/31/2024 9:31 AM PARTITION NOTCHER Chronic lymphocytic thyroiditis Polycystic ovaries Avitaminosis D Obesity, unspecified Impaired fasting glucose Screening for lipoid disorders THYROID PEROXIDASE ANTIBODY Routine 07/31/2024 9:31 AM PARTITION NOTCHER Chronic lymphocytic thyroiditis Polycystic ovaries Avitaminosis D Obesity, unspecified Impaired fasting glucose Screening for lipoid disorders CBC WITH AUTO DIFFERENTIAL Routine 07/31/2024 9:31 AM PARTITION NOTCHER Chronic lymphocytic thyroiditis Polycystic ovaries Avitaminosis D Obesity, unspecified Impaired fasting glucose Screening for lipoid disorders VITAMIN B12 Routine 07/31/2024 9:31 AM PARTITION NOTCHER Chronic lymphocytic thyroiditis Polycystic ovaries Avitaminosis D Obesity, unspecified Impaired fasting glucose Screening for lipoid disorders FOLATE Routine 07/31/2024 9:31 AM PARTITION NOTCHER Chronic lymphocytic thyroiditis Polycystic ovaries Avitaminosis D Obesity, unspecified Impaired fasting glucose Screening for lipoid disorders IRON PROFILE W/ IBC Routine 07/31/2024 9 :31 AM PARTITION NOTCHER Chronic lymphocytic thyroiditis Polycystic ovaries Avitaminosis D Obesity, unspecified Impaired fasting glucose Screening for lipoid disorders LIPID PANEL Routine 07/31/2024 9:31 AM PARTITION NOTCHER Chronic lymphocytic thyroiditis Polycystic ovaries Avitaminosis D Obesity, unspecified Impaired fasting glucose Screening for lipoid disorders COMPREHENSIVE METABOLIC PANEL Routine 07/31/2024 9:31 AM PARTITION NOTCHER Chronic lymphocytic thyroiditis Polycystic ovaries Avitaminosis D Obesity, unspecified Impaired fasting glucose Screening for lipoid disorders VITAMIN D 25 HYDROXY Routine 07/31/2024 9:31 AM PARTITION NOTCHER Chronic lymphocytic thyroiditis Polycystic ovaries Avitaminosis D Obesity, unspecified Impaired fasting glucose Screening for lipoid disorders T3, FREE Routine 07/31/2024 9:31 AM PARTITION NOTCHER Chronic lymphocytic thyroiditis Polycystic ovaries Avitaminosis D Obesity, unspecified Impaired fasting glucose Screening for lipoid disorders TESTOSTERONE, TOTAL AND FREE, SERUM Routine 07/31/2024 9:31 AM PARTITION NOTCHER Chronic lymphocytic thyroiditis Polycystic ovaries Avitaminosis D Obesity, unspecified Impaired fasting glucose Screening for lipoid disorders from Last 3 Months Results * eGFR (07/31/2024 9:31 AM PARTITION NOTCHER) Pathologist [facility] eGFR >90 >=60 mL/min/1. 73 m2 Comment: [...] last reviewed 2021. Blood 07/31/2024 9:31 AM PARTITION NOTCHER 07/31/2024 3:58 PM PARTITION NOTCHER us Valeria Lee MD LAB BLOOD ORDERABLES Yessica cox Result [facility] [address] [address] Department [place] [address] * Differential, auto (07/31/2024 9:31 AM PARTITION NOTCHER) Neutrophil abs 6.5 1.5 - 6.5 K/cumm Imm gran abs 0.0 0.0 - 0.1 K/cumm [facility] Lymphocyte abs 3.0 0.8 - 3.3 K/cumm [facility] Monocyte abs 0.8 0.2 - 0.8 K/cumm [facility] Eosinophil abs 0.1 0.0 - 0.5 K/cumm [facility] Basophil abs 0.1 0.0 - 0.1 K/cumm [facility] Neutrophil pct 61.4 % [facility] Comment: Interpretive Data Percent cell count reference ranges are not reported, since discordance with absolute values may lead to misinterpretation of CBC data. Current Interpretive Data was last revised on 2017. Imm gran pct 0.4 % [facility] Comment: Interpretive Data Percent cell count reference ranges are not reported, since discordance with absolute values may lead to misinterpretation of CBC data. Current Interpretive Data was last revised on 2017. Lymphocyte pct 28.6 % [facility] Comment: Interpretive Data Percent cell count reference ranges are not reported, since discordance with absolute values may lead to misinterpretation of CBC data. Current Interpretive Data was last revised on 2017. Monocyte pct 7.8 % [facility] Comment: Interpretive Data Percent cell count reference ranges are not reported, since discordance with absolute values may lead to misinterpretation of CBC data. Current Interpretive Data was last revised on 2017. Eosinophil pct 1.0 % [facility] Comment: Interpretive Data Percent cell count reference ranges are not reported, since discordance with absolute values may lead to misinterpretation of CBC data. Current Interpretive Data was last revised on 2017. Basophil pct 0.8 % [facility] Comment: Interpretive Data Percent cell count reference ranges are not reported, since discordance with absolute values may lead to misinterpretation of CBC data. Current Interpretive Data was last revised on 2017. Blood 07/31/2024 9:31 AM PARTITION NOTCHER 07/31/2024 3:39 PM PARTITION NOTCHER Valeria Lee MD LAB BLOOD ORDERABLES Yessica l Result Performing Organization Address [facility] de Phone Number [facility] [address] [address] Department [employer] [place], [place] [id number] * (ABNORMAL) Iron profile w/ IBC (07/31/2024 9:31 AM PARTITION NOTCHER) Iron 37 35 - 145 mcg/dl TIBC 270 250 - 400 mcg/dL [facility] Transferrin saturation 14(L) 20 - 50 % [facility] Blood 07/31/2024 9:31 AM PARTITION NOTCHER 07/31/2024 3:39 PM PARTITION NOTCHER Narrative [facility] - 07/31/2024 4:33 PM PARTITION NOTCHER Fax results to Dr Valeria Lee [phone] Valeria Lee MD LAB BLOOD ORDERABLES Yessica l Result Performing Organization Address [facility] de Phone Number [facility] DAVE [address] [address] Department [employer] [place] [address] * (ABNORMAL) CBC with auto differential (07/31/2024 9:31 AM PARTITION NOTCHER) WBC 10.6(H) 3.8 - 9.9 K/cumm Hgb 13.2 11.9 - 15.5 g/dL [facility] Hct 42.9 35.6 - 45.5 % [facility] Plt 275 150 - 400 K/cumm [facility] MPV 10.0 9.1 - 12.3 fL [facility] RBC 4.85 3.90 - 5.20 M/cumm [facility] MCV 88.5 81.3 - 96.4 fL [facility] CH MCH 27.2 27.1 - 33.3 pg [facility] MCHC 30.8(L) 32.3 - 35.7 g/dL [facility] RDW CV 13.3 11.1 - 14.9 % [facility] RDW SD 43.4 35.7 - 48.1 fL [facility] NRBC abs 0.00 0.00 - 0.01 K/cumm [facility] Blood 07/31/2024 9:31 AM PARTITION NOTCHER 07/31/2024 3:39 PM PARTITION NOTCHER Narrative [facility] - 07/31/2024 4:03 PM PARTITION NOTCHER Fax results to Dr Valeria Lee [phone] Valeria Lee MD LAB BLOOD ORDERABLES Yessica l Result Performing Organization Address [facility] de Phone Number [facility] [address] [address] [facility] [employer] [place] [address] * Thyroid peroxidase antibody (TPO) (07/31/2024 9:31 AM PARTITION NOTCHER) Pathologist [facility] Anti Thyroid Peroxidase <30 <=34 IUnits/mL Comment: ATPO Interpretive Data Results may be up to 28% higher in patients receiving Itraconazole. Current interpretive data was last revised 2020. Testing performed by: [facility], [address] [place]., [address] Blood 07/31/2024 9:31 AM PARTITION NOTCHER 08/03/2024 9:53 AM PARTITION NOTCHER Narrative [facility] - 08/03/2024 10:47 AM PARTITION NOTCHER Fax results to Dr Valeria Lee [phone] Valeria Lee MD LAB BLOOD ORDERABLES Yessica l Result Performing Organization Address [facility] Co de Phone Number [facility] [address] [address] [facility] [employer] [place], [place] [id number] * Vitamin D 25 hydroxy (07/31/2024 9:31 AM PARTITION NOTCHER) Vitamin D 25-OH 30 30 - 80 ng/mL Blood 07/31/2024 9:31 AM PARTITION NOTCHER 07/31/2024 3:39 PM PARTITION NOTCHER Narrative [facility] - 07/31/2024 4:28 PM PARTITION NOTCHER Fax results to Dr Valeria Lee [phone] Valeria Lee MD LAB BLOOD ORDERABLES Yessica l Result [facility] DAVE [address] [address] [place] [address] * Progesterone (07/31/2024 9:31 AM PARTITION NOTCHER) [facility] Progesterone 5.71 ng/mL Comment: Interpretive Data Males: <0.15 ng/mL Females: Follicular <0.20 ng/mL Ovulation <4.1 ng/mL Luteal 4.1 - 14.5 ng/mL 1st Trimester 11.0 - 44.0 ng/mL 2nd Trimester 25.0 - 83.0 ng/mL 3rd Trimester 59.0 - 214.0 ng/mL Postmenopausal <0.13 ng/mL Current interpretive data was last revised 2021. Testing performed by: [address] [address] Blood Venous blood specimen / Unknown 07/31/2024 9:31 AM PARTITION NOTCHER 08/03/2024 9:53 AM PARTITION NOTCHER Narrative [facility] - 08/03/2024 10:23 AM PARTITION NOTCHER Fax results to Dr Valeria Lee [phone] Valeria Lee MD LAB BLOOD ORDERABLES Yessica l Result [facility] JOLIE [address] [address] [place] [address] * (ABNORMAL) Insulin, total (07/31/2024 9:31 AM PARTITION NOTCHER) [facility] Insulin 26.7(H) 2.6 - 25.0 mcIUnit/mL Comment:Testing performed by : [address], [place]., [address] Blood 07/31/2024 9:31 AM PARTITION NOTCHER 08/03/2024 9:53 AM PARTITION NOTCHER Narrative [facility] - 08/03/2024 9:42 PM PARTITION NOTCHER Fax results to Dr Valeria Lee [phone] Valeria Lee MD LAB BLOOD ORDERABLES Yessica l Result Performing Organization Address [facility] Co de Phone Number FELICIA [address] [address] [facility] [employer] [place] [address] * DHEA-sulfate (07/31/2024 9:31 AM PARTITION NOTCHER) Pathologist [facility] DHEA-S 160.0 60.9 - 337.0 mcg/dL Comment:Testing performed by : [facility], [address] [place] [address]., [address] Blood 07/31/2024 9:31 AM PARTITION NOTCHER 08/03/2024 9:54 AM PARTITION NOTCHER Narrative [facility] - 08/03/2024 9:21 PM PARTITION NOTCHER Fax results to Dr Valeria Lee [phone] Valeria Lee MD LAB BLOOD ORDERABLES Yessica l Result Performing Organization Address [facility] [place] [address] [address] [facility] [employer] [place] [address] * Estradiol (07/31/2024 9:31 AM PARTITION NOTCHER) Pathologist [facility] Estradiol 104.0 pg/mL Comment: Interpretive Data Males: 11 43 pg/mL Females: Premenopausal: 31 533 pg/mL Postmenopausal: < 50 pg/mL Patients treated with Fluvestrant (Faslodex) should be tested using an alternate assay such as LC-MS due to potential for cross-reactivity. Estradiol varies widely throughout the menstrual cycle. Current interpretive data was last revised 2024. Testing performed by: [facility], [address] [place] [address]., [address] Blood 07/31/2024 9:31 AM PARTITION NOTCHER 08/03/2024 9:53 AM PARTITION NOTCHER Narrative [facility] - 08/03/2024 10:23 AM PARTITION NOTCHER Fax results to Dr Valeria Lee [phone] Valeria Lee MD LAB BLOOD ORDERABLES Yessica l Result Performing Organization Address City/[facility]/ZIP Co de Phone Number FEILCIA DAVE [address] [address] Department [employer] [place] [address] * ACTH (07/31/2024 9:31 AM PARTITION NOTCHER) ACTH 15.4 7.0 - 63.0 pg/mL Comment:Testing performed by : [facility], [address] [place]., [address] Blood Venous blood specimen / Unknown 07/31/2024 9:31 AM PARTITION NOTCHER 08/03/2024 2:48 PM PARTITION NOTCHER Gokul DUARTE - 08/07/2024 10:48 AM PARTITION NOTCHER Fax results to Dr Valeria Lee [phone] Valeria Lee MD LAB BLOOD ORDERABLES Yessica l Result Performing Organization Address [facility] Co de Phone Number FELICIA DAVE [address] [address] [facility] [place] [address] * Testosterone, Total and Free, Serum (07/31/2024 9:31 AM PARTITION NOTCHER) Testosterone 21 8 - 60 ng/dL [facility] Comment: ADDITIONAL INFORMATION Testing performed by Liquid Chromatography-Tandem Mass Spectrometry (LC-MS/MS). This test was developed and its performance characteristics determined by [facility] in a manner consistent with CLIA requirements. This test has not been cleared or approved by the U.S. Food and Drug Administration. Test Performed by: [facility] - [address] [address] Senior Military Analyst: Adrienne Campbell Ph.D.; CLIA# [id number] Testosterone, free 0.64 <0.13 - 1.00 ng/dL [facility] Comment: ADDITIONAL INFORMATION This test was developed and its performance characteristics determined by [facility] in a manner consistent with CLIA requirements. This test has not been cleared or approved by the U.S. Food and Drug Administration. Blood 07/31/2024 9:31 AM PARTITION NOTCHER 07/31/2024 3:39 PM PARTITION NOTCHER Narrative [facility] 08/11/2024 12:28 PM PARTITION NOTCHER Fax results to Dr Valeria Lee [phone] Valeria Lee MD LAB BLOOD ORDERABLES Yessica l Result Performing Organization Address [facility] Co de Phone Number FELICIA [address] [address] [employer] [place], [place] [phone] [facility] * T3, free (07/31/2024 9:31 AM PARTITION NOTCHER) Free T3 3.0 2.0 - 4.4 pg/mL Blood 07/31/2024 9:31 AM PARTITION NOTCHER 07/31/2024 3:39 PM PARTITION NOTCHER Gokul DUARTE [facility] 07/31/2024 4:33 PM PARTITION NOTCHER Fax results to Dr Valeria Lee [phone] Valeria Lee MD LAB BLOOD ORDERABLES Yessica l Result FELICIA [address] [address] [employer] [place], [place] [id number] * TSH (07/31/2024 9:31 AM PARTITION NOTCHER) Thyroid Stimulating Hormone 0.56 0.30 - 4.20 mcIUnit/mL Blood Venous blood specimen / Unknown 07/31/2024 9:31 AM PARTITION NOTCHER 07/31/2024 3:39 PM PARTITION NOTCHER Narrative [facility] [place] 07/31/2024 4:33 PM PARTITION NOTCHER Fax results to Dr Valeria Lee [phone] Valeria Lee MD LAB BLOOD ORDERABLES Yessica l Result Performing Organization Address [facility] Co de Phone Number YEMICARLEE [address] [address] [facility] [employer] [place] [address] * T4, free (07/31/2024 9:31 AM PARTITION NOTCHER) [facility] Free T4 1.15 0.90 - 1.70 ng/dL Blood Venous blood specimen / Unknown 07/31/2024 9:31 AM PARTITION NOTCHER 07/31/2024 3:39 PM PARTITION NOTCHER Narrative [facility] - 07/31/2024 4:33 PM PARTITION NOTCHER Fax results to Dr Valeria Lee [phone] Valeria Lee MD LAB BLOOD ORDERABLES Yessica l Result Performing Organization Address [facility] de Phone Number FELICIA [address] [address] Department [employer] [place] [address] * Magnesium (07/31/2024 9:31 AM PARTITION NOTCHER) [facility] Magnesium 2.2 1.4 - 2.5 mg/dL Blood Venous blood specimen / Unknown 07/31/2024 9:31 AM PARTITION NOTCHER 07/31/2024 3:39 PM PARTITION NOTCHER [facility] - 07/31/2024 4:33 PM PARTITION NOTCHER Fax results to Dr Valeria Lee [phone] Valeria Lee MD LAB BLOOD ORDERABLES Yessica l Result Performing Organization Address City/[facility] Co de Phone Number FELICIA [address] [address] [facility] [employer] [place] [address] * Hemoglobin A1c (07/31/2024 9:31 AM PARTITION NOTCHER) [facility] Hgb A1C 5.3 4.0 - 5.6 % Estimated Average Glucose 105 mg/dL [facility] Comment: The ADA recommends reporting an estimated Average Glucose (eAG) with all Hemoglobin A1c results using the equation derived from a study of 507 normal and diabetic adults. Minority populations were underrepresented and children were not included. (Diabetes Care 31:9574-6900, 2008). The eAG is not equivalent to a fasting glucose. Blood Venous blood specimen / Unknown 07/31/2024 9:31 AM PARTITION NOTCHER 07/31/2024 3:39 PM PARTITION NOTCHER Narrative [facility] - 07/31/2024 4:32 PM PARTITION NOTCHER Fax results to Dr Valeria Lee [phone] Valeria Lee MD LAB BLOOD ORDERABLES Yessica l Result FEL[facility] DAVE [address] [address] [place] [address] * LH (07/31/2024 9:31 AM PARTITION NOTCHER) LH 2.1 IUnits/L Comment: Interpretive Data Males: Adults: 1.7 - 8.6 IUnits/L Females: Follicular: 2.4 - 12.6 IUnits/L Ovulation: 14.0 - 95.6 IUnits/L Luteal: 1.0 - 11.4 IUnits/L Postmenopausal: 7.7 - 58.5 IUnits/L Current interpretive data was last revised on 2019. Testing performed by: [facility], [address] [place] [address]., [address] Blood Venous blood specimen / Unknown 07/31/2024 9:31 AM PARTITION NOTCHER 08/03/2024 9:53 AM PARTITION NOTCHER Narrative [facility] - 08/03/2024 10:23 AM PARTITION NOTCHER Fax results to Dr Valeria Lee [phone] Valeria Lee MD LAB BLOOD [place] [address] [address] Department of [employer] [place], [place] [phone] * Follicle stimulating hormone (07/31/2024 9:31 AM PARTITION NOTCHER) FSH 2.0 IUnits/L Comment: Interpretive Data Male: Adults: 1.5 - 12.4 IUnits/L Female: Follicular: 3.5 - 12.5 IUnits/L Ovulation: 4.7 - 21.5 IUnits/L Luteal: 1.7 - 7.7 IUnits/L Postmenopausal: 25.8 - 134.8 IUnits/L Current interpretive data was last revised 2015. Testing performed by: [facility], [address] [place]., [address] Blood Venous blood specimen / Unknown 07/31/2024 9:31 AM PARTITION NOTCHER 08/03/2024 9:53 AM PARTITION NOTCHER Narrative [facility] [place] 08/03/2024 10:23 AM PARTITION NOTCHER Fax results to Dr Valeria Lee [phone] Valeria Lee MD LAB BLOOD ORDERABLES Yessica l Result Performing Organization Address City/[facility]/[place] [address] [address] [place] [address] * Folate (07/31/2024 9:31 AM PARTITION NOTCHER) Pathologist [facility] Folic acid 12.7 >=5.0 ng/mL Blood 07/31/2024 9:31 AM PARTITION NOTCHER 07/31/2024 3:39 PM PARTITION NOTCHER Gokul DUARTE [facility] 07/31/2024 4:33 PM PARTITION NOTCHER Fax results to Dr Valeria Lee [phone] Valeria Lee MD LAB BLOOD [place] [address] [address] [facility] [employer] [place] [address] * Ferritin (07/31/2024 9:31 AM PARTITION NOTCHER) [facility] Ferritin 48 15 - 150 ng/mL Blood Venous blood specimen / Unknown 07/31/2024 9:31 AM PARTITION NOTCHER 07/31/2024 3:39 PM PARTITION NOTCHER Narrative [facility] - 07/31/2024 4:33 PM PARTITION NOTCHER Fax results to Dr Valeria Lee [phone] Valeria Lee MD LAB BLOOD ORDERABLES Yessica l Result Performing Organization Address [facility] Co de Phone Number FELICIA DAVE [address] [address] Department [employer] [place], [place] [address] * Vitamin B12 (07/31/2024 9:31 AM PARTITION NOTCHER) Pathologist [facility] Vitamin B12 1,092 230 - 1,250 pg/mL Blood Venous blood specimen / Unknown 07/31/2024 9:31 AM PARTITION NOTCHER 07/31/2024 3:39 PM PARTITION NOTCHER Narrative FELICIA - 07/31/2024 4:33 PM PARTITION NOTCHER Fax results to Dr Valeria Lee [phone] Valeria Lee MD LAB BLOOD ORDERABLES Yessica l Result Performing Organization Address [facility] Phone Number FELICIA DAVE [address] Alexandre [facility] [place] [address] * Cortisol (07/31/2024 9:31 AM PARTITION NOTCHER) Pathologist [facility] Cortisol 7.1 4.8 - 19.5 mcg/dl Comment: Interpretive Data Normal Range: 4.8 - 19.5 mcg/dL; Evening: Half of morning value. This analyte undergoes marked diurnal variation. Ranges indicated apply to morning specimens. Current interpretive data was last revised 2018. Blood Venous blood specimen / Unknown 07/31/2024 9:31 AM PARTITION NOTCHER 07/31/2024 3:39 PM PARTITION NOTCHER Gokul DUARTE - 07/31/2024 4:33 PM PARTITION NOTCHER Fax results to Dr Valeria Lee [phone] us Valeria Lee MD LAB BLOOD ORDERABLES Yessica l Result Performing Organization Address [facility] [place] [address] Alexandre [facility] [place] [address] * (ABNORMAL) Lipid panel (07/31/2024 9:31 AM PARTITION NOTCHER) Cholesterol 169 30 - 199 mg/dL Comment: [...] NCEP Expert Panel. Circulation 2004;110:227 3. Chadd Andrade et al. RUBÉN Cardiol. 2020 December 24;5(5):540-548. doi: 10.1001/jamacardio.2020.0013 Current Interpretive Data was [...] last revised on 2018. Chol/HDL ratio 5 FELICIA Blood Venous blood specimen / Unknown 07/31/2024 9:31 AM PARTITION NOTCHER 07/31/2024 3:39 PM PARTITION NOTCHER Narrative FELICIA - 07/31/2024 4:33 PM PARTITION NOTCHER Fax results to Dr Valeria Lee [phone] Valeria Lee MD LAB BLOOD ORDERABLES Yessica cox Result FELICIA DAVE [address] [address] [facility] [place] [address] * Comprehensive metabolic panel (07/31/2024 9:31 AM PARTITION NOTCHER) Sodium 140 135 - 145 mmol/L Potassium, [...] blood specimen / Unknown 07/31/2024 9:31 AM PARTITION NOTCHER 07/31/2024 3:39 PM PARTITION NOTCHER Narrative CERNER CH - 07/31/2024 4:33 PM PARTITION NOTCHER Fax results to Dr Valeria Lee [phone] Valeria Lee MD LAB BLOOD ORDERABLES Yessica cox Result FELICIA [address] [address] [place] [facility] [place] [address] from Last 3 Months Insurance [employer] [facility] Care Teams Knifeman Relationship Specialty Start Date End Date Flor Rodriguez PA [facility] [place] [address] PCP - General Family Practice 09/12/23 Philipp Sherman MD [address] [place] [address] Referring Physician Obstetrics and Gynecology 06/04/22 Leobardo Turk MD [address] [facility] [address] [facility] [address] [place] [address] Referring Physician Obstetrics and Gynecology 06/04/22
--- OUTSIDE RECORDS SUMMARY | 2024-10-28 11:21 | XMS_ITS | Encounter Summary ---
Author Organization [facility] Address [address] [place] [address] Care Team Providers Care Notereader Name Role Phone Jaqui Hardwick Primary Care Provider [phone] Xiomara Odom DO Primary Care Provider [phone] Encounter Details Date Type Department Care Team (Late st Contact Info) Description 06/23/2005 Abstract [facility] Clinics Conversion Md, Generic Conversion, [...] on filedocumented in this encounter Care Teams Notereader Relationship Specialty Start Date End Date Jaqui Hardwick PA PCP - General PHYSICIAN SALES REPRESENTATIVE PRINTING PAPER 10/03/18 03/29/21 Xiomara Odom DO PCP - General FAMILY PRACTICE 03/30/21 documented as of this encounter
--- OUTSIDE RECORDS SUMMARY | 2024-10-28 11:21 | XMS_ITS | Encounter Summary ---
Author Organization [facility] Address [facility] [place] [address] Care Team Providers Care Thermit Welding Machine Operator Name Role Phone Jaqui Hardwick Primary Care Provider [phone] Xiomara Odom DO Primary Care Provider [phone] Encounter Details Date Type Department Care Team (Late st Contact Info) Description 02/05/2018 Abstract [facility] Conversion Jaqui Hardwick PA [address] [place] [address] Social History Tobacco Use Types Packs/Day Years Used Date Smoking Tobacco: Never Assessed Comments Unknown Sex and Gender Information Value Date Recorded Sex Assigned at Not on file Legal Sex Female 5:05 PM CDT Gender Identity Not on file Sexual Orientation Not on file documented as of this encounter Miscellaneous Notes * Letter - GERHARD Grady - 02/05/2018 12:00 AM CDT 02-05-2018 Sammi Carnes [address] [place] [address] : 1985 Lab Order: TSH, free T4 E03.9 Hypothyroidism, unspecified Fasting [] Non-Fasting [x] Normal [x] Stat [] VANCE AND APPEALS COORDINATOR documented in this encounter Plan of Treatment Not on file documented as of this encounter Visit Diagnoses Not on filedocumented in this encounter Care Teams Thermit Welding Machine Operator Relationship Specialty Start Date End Date Jaqui Hardwick PA PCP - General PHYSICIAN BALLET COMPANY ARTISTIC DIRECTOR 10/03/18 03/29/21 Xiomara Odom DO PCP - General FAMILY PRACTICE 03/30/21 documented as of this encounter
--- OUTSIDE RECORDS SUMMARY | 2024-10-28 11:21 | XMS_ITS | Encounter Summary ---
Author Organization [facility] Address [address] [place] [address] Care Team Providers Care Claims Administrator Name Role Phone Jaqui Hardwick Primary Care Provider [phone] Xiomara Odom DO Primary Care Provider [phone] Encounter Details Date Type Department Care Team (Late st Contact Info) Description 06/26/[address] [facility] Clinics Conversion Md, Generic Conversion, Social History [...] on filedocumented in this encounter Care Teams Claims Administrator Relationship Specialty Start Date End Date Jaqui Hardwick PA PCP - General PHYSICIAN POULTRY HATCHERY LABORER 10/03/18 03/29/21 Xiomara Odom DO PCP - General FAMILY PRACTICE 03/30/21 documented as of this encounter
--- OUTSIDE RECORDS SUMMARY | 2024-10-28 11:21 | XMS_ITS | Encounter Summary ---
Author Organization [facility] Address [address] [place] [address] Care Team Providers Care Home Health Provider Name Role Phone Jaqui Hardwick Primary Care Provider [phone] Xiomara Odom DO Primary Care Provider [phone] Encounter Details Date Type Department Care Team (Late st Contact Info) Description 12/05/2017 Abstract [facility] Clinics Conversion Md, Generic Conversion, [...] on filedocumented in this encounter Care Teams Home Health Provider Relationship Specialty Start Date End Date Jaqui Hardwick PA PCP - General PHYSICIAN COMMUNITY OUTREACH WORKER 10/03/18 03/29/21 Xiomara Odom DO PCP - General FAMILY PRACTICE 03/30/21 documented as of this encounter
--- OUTSIDE RECORDS SUMMARY | 2024-10-28 11:21 | XMS_ITS | Encounter Summary ---
Author Organization [facility] Address [address] [place] [address] Care Team Providers Care Plodding Machine Operator Name Role Phone Jaqui Hardwick Primary Care Provider [phone] Xiomara Odom DO Primary Care Provider [phone] Encounter Details Date Type Department Care Team (Late st Contact Info) Description 05/27/2014 Abstract [facility] Clinics Conversion Md, Generic Conversion, Social [...] on filedocumented in this encounter Care Teams Plodding Machine Operator Relationship Specialty Start Date End Date Jaqui Hardwick PA PCP - General PHYSICIAN CASH CHECKER 10/03/18 03/29/21 Xiomara Odom DO PCP - General FAMILY PRACTICE 03/30/21 documented as of this encounter
--- OUTSIDE RECORDS SUMMARY | 2024-10-28 11:21 | XMS_ITS | Encounter Summary ---
Author Organization [facility] Address [address] [place] [address] Care Team Providers Care Emergency Service Restorer Name Role Phone Jaqui Hardwick Primary Care Provider [phone] Xiomara Odom DO Primary Care Provider [phone] Encounter Details Date Type Department Care Team (Late st Contact Info) Description 12/20/2010 Abstract [facility] Clinics Conversion Md, Generic Conversion, Social [...] on filedocumented in this encounter Care Teams Emergency Service Restorer Relationship Specialty Start Date End Date Jaqui Hardwick PA PCP - General PHYSICIAN COMPOSITE BOND WORKER 10/03/18 03/29/21 Xiomara Odom DO PCP - General FAMILY PRACTICE 03/30/21 documented as of this encounter
== END 2024-10-28 10:12 | disposition home or self-care (01) ==
LOC: ANHIMG 10:13
PROVIDERS: PCP Physician Assistant Medical; Visit Provider Obstetrics & Gynecology
DX: Z12.31 Encounter for screening mammogram for malignant neoplasm of breast (principal)
CPT/HCPCS: 77063; 77067

== ENCOUNTER 2024-12-05 09:58 | Outpatient (CLI) | payer BC, SELFPAY ==
--- NOTE | ~2024-12-05 | US_ITS ---
EXAMINATION: US thyroid DATE: 12/05/2024 10:19 INDICATION: Goiter TECHNIQUE: Multiple ultrasound images of the thyroid were obtained. COMPARISON: None. FINDINGS: The right thyroid lobe measures 3.9 x 1.4 x 0.7 cm. The left thyroid lobe measures 3.4 x 1.2 x 1.0 c m. Thyroid isthmus measures 2 mm in thickness. No discrete nodules identified. There is normal echote xture, echogenicity and vascular flow throughout the thyroid gland. There are few bilateral jugular c micky lymph nodes which are normal in size with normal central echogenic fatty chelsey. IMPRESSION: 1. Normal thyroid ultrasound. Reviewed, dictated and finalized at location A.
== END 2024-12-05 09:59 | disposition home or self-care (01) ==
LOC: MICIMG 10:00
PROVIDERS: PCP Physician Assistant Medical; Visit Provider Internal Medicine Endocrinology, Diabetes & Metabolism
DX: E04.9 Nontoxic goiter, unspecified (principal)
CPT/HCPCS: 76536

== ENCOUNTER 2025-02-12 13:25 | Outpatient (CLI) | payer BC, SELFPAY ==
--- NOTE | ~2025-02-12 | MR_ITS ---
EXAMINATION: MR brain/brain stem wo/w con DATE: 02/12/2025 14:40 INDICATION: Paresthesias of skin TECHNIQUE: Magnetic resonance imaging (MRI) of the brain and brainstem was performed without and with 19 mL Multihance intravenous contrast. Sequences included sagittal and axial T1-weighted SE, axial d iffusion-weighted FS SE, axial T2*-weighted GRE, axial T2-weighted FLAIR, and axial T2-weighted FSE. Postcontrast axial and coronal T1-weighted SE was obtained. Apparent diffusion coefficient (ADC) maps were created. COMPARISON: Brain MR dated 10/19/2021 FINDINGS: There are no areas of restricted diffusion to suggest acute infarction. No intracranial hemorrhage or abnormal intracranial mass lesion. There are no intraparenchymal signal abnormalities seen on the ot her pulse sequences. The ventricles are symmetric and normal in size. There are no abnormal extra-axi al fluid collections. Flow voids are seen in the cerebral arteries on the T2-weighted sequences consi stent with their expected patency. Miya bullosa of the right middle turbinate. Visualized orbits an d soft tissues are unremarkable. There are no areas of abnormal enhancement on the post contrast imag es. IMPRESSION: 1. Normal brain. No acute intracranial process. Reviewed, dictated and finalized at location A.
--- NOTE | ~2025-02-12 | MR_ITS ---
MRI of the cervical spine Clinical History: Paresthesia of skin Technique: Axial T2-weighted and gradient images, and sagittal T1-weighted, T2-weighted, and STIR diana ges were acquired. COMPARISON: 09/05/2021 Findings: There is no fracture or subluxation of the cervical spine. There is minimal reversal of the normal cervical lordosis. No bone marrow signal abnormality seen. At C2-C3, there is no significant disc bulge or herniation. No spinal canal stenosis, cord compressio n, or neural foraminal narrowing. At C3-C4, there is no significant disc bulge or herniation. No spinal canal stenosis, cord compressio n, or neural foraminal narrowing. At C4-C5, there is no significant disc bulge or herniation. No spinal canal stenosis, cord compressio n, or neural foraminal narrowing. At C5-C6, there is degenerative disc narrowing with mild disc osteophyte convex. No canal stenosis, c ord compression, or neural foraminal narrowing. At C6-C7, there is mild degenerative disc narrowing. No significant disc bulge or herniation. No spin al canal stenosis, cord compression, or neural foraminal narrowing. There are minimal facet joint degenerative changes scattered throughout the cervical spine. No abnorm al signal seen in the spinal cord. Paravertebral soft tissues are unremarkable. Impression: Minimal degenerative spondylosis, as above. Reviewed, dictated and finalized at [facility]. Impression: Minimal degenerative spondylosis, as above.
== END 2025-02-12 13:26 | disposition home or self-care (01) ==
LOC: MICIMG 13:33
PROVIDERS: PCP Physician Assistant Medical; Visit Provider Physician Assistant Medical
DX: R20.2 Paresthesia of skin (principal); R25.3 Fasciculation; M54.12 Radiculopathy, cervical region; G43.809 Other migraine, not intractable, without status migrainosus
CPT/HCPCS: 70553; 72141; A9577

== ENCOUNTER 2025-02-25 15:02 | Outpatient (CLI) | payer BC, SELFPAY ==
--- NOTE | ~2025-02-25 | CT_ITS ---
CT of the Abdomen and Pelvis: Indication: Abdominal pain Technique: 2.5 mm axial scans were obtained through the abdomen and pelvis following intravenous adm inistration of 100 cc of Omnipaque 350. Dose reduction technique was used on this scan by utilizing a utomated exposure control and iterative reconstruction technique. The dose-length product (DLP) was 8 33.39 mGy-cm. COMPARISON: 04/24/2023 Findings: Scans through the lung bases are unremarkable. There is diffuse hepatic steatosis. The spleen, pancreas, adrenals and left kidney are within normal limits. Cholecystectomy clips are present. There is distended right extrarenal pelvis with possible m inimal prominence of the right renal collecting system. Nonobstructing stones measuring up to 5 mm. N o evidence of aortic aneurysm. No lymphadenopathy. No bowel obstruction or bowel wall thickening. There is no evidence to suggest acute appendicitis. Images through the pelvis were performed. Urinary bladder unremarkable. No significant pelvic mass se en. No ascites. Impression: Distended right extrarenal pelvis with possible minimal prominence of the right renal collecting syst em. Nonobstructing right nephrolithiasis, as above. Diffuse hepatic steatosis. Reviewed, dictated and finalized at location M. Impression: Distended right extrarenal pelvis with possible minimal prominence of the right renal collecting system. Nonobstructing right nephrolithiasis, as above. Diffuse hepatic steatosis.
== END 2025-02-25 15:03 | disposition home or self-care (01) ==
PROVIDERS: PCP Physician Assistant Medical; Visit Provider Nurse Practitioner
DX: N20.0 Calculus of kidney (principal); K76.0 Fatty (change of) liver, not elsewhere classified; R93.41 Abnormal radiologic findings on diagnostic imaging of renal pelvis, ureter, or bladder
CPT/HCPCS: 74177; Q9967

== ENCOUNTER 2025-03-09 00:28 | Day surgery (SDC) | payer BC, SELFPAY ==
[2025-02-24 12:03] VITALS: BMI 35.4
--- OUTSIDE RECORDS SUMMARY | 2025-03-09 00:31 | XMS_ITS | Patient Health Record ---
Author Organization [facility] Address [address] [place] [address] Care Team Providers Care Environmental Designer Name Role Phone Valeria Lee Unavailable [phone] Allergies No Known Allergies Results Component Value Reference Range Flag Notes .COMPREHENSIVE METABOLIC HUSTON EL (68985) CMP Reviewed date:12/23/2024 09:40:44 AM Interpretation: Performing Lab:[place], [facility]-[id number] Sergei Kaur, [id number] Ana Villeda MD Notes/Report: FASTING: NO FASTING:NO GLUCOSE 78 65-139 mg/dL N Non-fasting reference interval UREA NITROGEN (BUN) 8 7-25 mg/dL N CREATININE 0.83 0.50-0.97 mg/dL N EGFR 92 > OR = 60 mL/min/1.73m2 N BUN/CREATININE RATIO SEE NOTE: 6-22 (calc) Not Reported: BUN and Creatinine are within reference range. SODIUM 139 135-146 mmol/L N POTASSIUM 4.3 3.5-5.3 mmol/L N CHLORIDE 104 98-110 mmol/L N CARBON DIOXIDE 28 20-32 mmol/L N CALCIUM 9.5 8.6-10.2 mg/dL N PROTEIN, TOTAL 7.0 6.1-8.1 g/dL N ALBUMIN 4.4 3.6-5.1 g/dL N GLOBULIN 2.6 1.9-3.7 g/dL (calc) N ALBUMIN/GLOBULIN RATIO 1.7 1.0-2.5 (calc) N BILIRUBIN, TOTAL 0.4 0.2-1.2 mg/dL N ALKALINE PHOSPHATASE 80 31-125 U/L N AST 43 10-30 U/L H ALT 52 6-29 U/L H MAGNESIUM (622) Reviewed date:12/23/2024 09:40:54 AM Interpretation: Performing Lab:[facility] ARENASexa10101 Jerome Aparicio[address] Ana Villeda MD Notes/Report: FASTING:NO FASTING: NO MAGNESIUM 2.0 1.5-2.5 mg/dL N IRON AND TOTAL IRON BINDING CAPACITY (7573) Reviewed date:12/23/2024 09:40:49 AM Interpretation: Performing Lab:[facility] ARENASexa10101 Iraj AparicioaKS[address] Ana Villeda MD Notes/Report: FASTING: NO FASTING:NO IRON, TOTAL 74 40-190 mcg/dL N IRON BINDING CAPACITY 329 250-450 mcg/dL (calc) N % SATURATION 22 16-45 % (calc) N .LIPID PANEL, STANDARD (1000 ) Reviewed date:12/23/2024 09:41:01 AM Interpretation: Performing Lab:[facility] ARENASexa101Jerome Godoy[address] Ana Villeda MD Notes/Report: FASTING:NO FASTING: NO CHOLESTEROL, TOTAL 190 <200 mg/dL N HDL CHOLESTEROL 35 > OR = 50 mg/dL L TRIGLYCERIDES 304 <150 mg/dL H Manuel et al. J. of Clin. Lipidol. 2015;9:129-169. If a non-fasting specimen was collected, consider repeat triglyceride testing on a fasting specimen if clinically indicated. LDL-CHOLESTEROL 114 H Reference range: <100 Desirable range <100 mg/dL for primary prevention; <70 mg/dL for patients with CHD or diabetic patients with > or = 2 CHD risk factors. LDL-C is now calculated using the Papi-Tank calculation, which is a validated novel method providing better accuracy than the Friedewald equation in the estimation of LDL-C. Papi SS et al. RUBÉN. 2013;310(19): 0708-1292 (http://education.Macheen/faq/FAQ16 4) CHOL/HDLC RATIO 5.4 <5.0 (calc) H NON HDL CHOLESTEROL 155 <130 mg/dL (calc) H (LDL-C of <70 mg/dL) is considered a therapeutic option. For patients with diabetes plus 1 major ASCVD risk factor, treating to a non-HDL-C goal of <100 mg/dL .CBC (INCLUDES DIFF/PLT) (63 99) Reviewed date:12/23/2024 09:40:38 AM Interpretation: Performing Lab:[facility] ARENAS-[id number] Wang AparicioDpvssaTL[address] Ana Villeda MD Notes/Report: FASTING:NO FASTING: NO WHITE BLOOD CELL COUNT 10.4 3.8-10.8 Thousand/uL N RED BLOOD CELL COUNT 4.89 3.80-5.10 Million/uL N HEMOGLOBIN 13.8 11.7-15.5 g/dL N HEMATOCRIT 42.8 35.0-45.0 % N MCV 87.5 80.0-100.0 fL N MCH 28.2 27.0-33.0 pg N MCHC 32.2 32.0-36.0 g/dL N For adults, a slight decrease in the calculated MCHC value (in the range of 30 to 32 g/dL) is most likely not clinically significant; however, it should be interpreted with caution in correlation with other red cell parameters and the patient's clinical condition. RDW 12.8 11.0-15.0 % N PLATELET COUNT 272 140-400 Thousand/uL N MPV 10.2 7.5-12.5 fL N ABSOLUTE NEUTROPHILS 5502 5501-4271 cells/uL N ABSOLUTE LYMPHOCYTES 3702 850-3900 cells/uL N ABSOLUTE MONOCYTES 946 200-950 cells/uL N ABSOLUTE EOSINOPHILS 156 15-500 cells/uL N ABSOLUTE BASOPHILS 94 0-200 cells/uL N NEUTROPHILS 52.9 N LYMPHOCYTES 35.6 N MONOCYTES 9.1 N EOSINOPHILS 1.5 N BASOPHILS 0.9 N .HEMOGLOBIN A1c (496) Reviewed date:01/10/2025 02:25:53 PM Interpretation: Performing Lab:[facility] ARENASexa10101 Iraj AparicioaKS[address] Ana Villeda MD Notes/Report: FASTING:NO FASTING: NO HEMOGLOBIN A1c 5.3 <5.7 % N Currently, no consensus exists regarding use of hemoglobin A1c for diagnosis of diabetes in children. According to [place] Diabetes Association (ADA) guidelines, hemoglobin A1c <7.0% represents optimal control in non- diabetic patients. Different metrics may apply to specific patient populations. Standards of Medical Care in Diabetes(ADA). For the purpose of screening for the presence of diabetes: <5.7% Consistent with the absence of diabetes 5.7-6.4% Consistent with increased risk for diabetes (prediabetes) > or =6.5% Consistent with diabetes This assay result is consistent with a decreased risk of diabetes. DHEA SULFATE (402) Reviewed date:12/23/2024 09:40:10 AM Interpretation: Performing Lab:[facility] ARENAS-Rosa Kaur, OsttjyKF[address] Ana Villeda MD Notes/Report: FASTING:NO FASTING: NO DHEA SULFATE 178 19-237 mcg/dL N VITAMIN B12/FOLATE, SERUM PA CARTER (2164) Reviewed date:12/23/2024 09:31:40 AM Interpretation: Performing Lab:[facility] ARENAS LenexaKS[address] Ana Villeda MD Notes/Report: FASTING:NO FASTING: NO VITAMIN B12 520 636-8638 pg/mL N FOLATE, SERUM 13.0 N Reference Range Low: <3.4 Borderline: 3.4-5.4 Normal: >5.4 FERRITIN (457) Reviewed date:12/23/2024 09:40:05 AM Interpretation: Performing Lab:[facility] ARENAS LenexaKS[address] Ana Villeda MD Notes/Report: FASTING:NO FASTING: NO FERRITIN 42 16-154 ng/mL N T4, FREE (866) Reviewed date:12/23/2024 09:39:59 AM Interpretation: Performing Lab:[facility] ARENAS LenexaKS[address] Ana Villeda MD Notes/Report: FASTING:NO FASTING: NO T4, FREE 1.1 0.8-1.8 ng/dL N TSH (899) Reviewed date:12/23/2024 09:32:00 AM Interpretation: Performing Lab:[facility] ARENAS LenexaKS[address] Ana Villeda MD Notes/Report: FASTING:NO FASTING: NO TSH 0.51 N > or = 20 Years 0.40-4.50 Ranges First trimester 0.26-2.66 Second trimester 0.55-2.73 Third trimester 0.43-2.91 Reference Range T3, FREE (18774) Reviewed date:12/23/2024 09:31:34 AM Interpretation: Performing Lab:[facility] ARENAS-[id number] Sergei Kaur, HhuakfZQ[address] Ana Villeda MD Notes/Report: FASTING:NO FASTING: NO T3, FREE 2.8 2.3-4.2 pg/mL N .VITAMIN D,25-OH,TOTAL,IA (1 7306) Reviewed date:12/23/2024 09:31:27 AM Interpretation: Performing Lab:[facility] ARENAS-Jfurug05993Gabriela Kaur, StzvdxKT[address] Ana Villeda MD Notes/Report: FASTING:NO FASTING: NO VITAMIN D,25-OH,TOTAL,IA 29 30-100 ng/mL L Vitamin D Status 25-OH Vitamin D: Deficiency: <20 ng/mL Insufficiency: 20 - 29 ng/mL Optimal: > or = 30 ng/mL For 25-OH Vitamin D testing on patients on D2-supplementation and patients for whom quantitation of D2 and D3 fractions is required, the QuestAssureD(TM) 25-OH VIT D, (D2,D3), LC/MS/MS is recommended: order code 18025 (patients >2yrs). See Note 1 Note 1 For additional information, please refer to http://education.Uro Jock/faq/MCI479 (This link is being provided for informational/ educational purposes only.) ACTH, PLASMA (211) Reviewed date:12/28/2024 09:45:53 AM Interpretation: Performing Lab:[facility] VOGT/Juan Alberto Buck [id number] Мария Ma, VuffvhetvBW[address] Milton Esquivel M.D.,PhD Notes/Report: FASTING:NO FASTING: NO ACTH, PLASMA 37 6-50 pg/mL Reference range applies only to specimens collected between 7am-10am. COPY(IES) SENT TO: Reviewed date:12/28/2024 09:45:34 AM Interpretation: Performing Lab: Notes/Report: FASTING:NO FASTING: NO COPY(IES) SENT TO: [facility] ADMN [address] [place] [address] Reason For Referral No Information Medications Medication SIG (Take, Route, Frequency, Duration) Notes Start Date End Date Status Zepbound 2.5 MG/0.5ML Solution Auto-injector 0.5 mL Subcutaneous once a week; Duration: 30 days 12/09/2024 Active Synthroid 125 MCG Tablet 1 tablet in the morning on an empty stomach Orally Once a day; Duration: 90 days 08/17/2024 Active Norethindrone 0.35 MG Tablet 1 tablet Orally Once a day; Duration: days 07/30/2024 Active metFORMIN HCl ER 500 MG Tablet Extended Release 24 Hour 1 tablet with evening meal Orally Once a day; Duration: 90 days 09/02/2024 Active Wegovy 0.5 MG/0.5ML Solution Auto-injector 0.5 mL Subcutaneous once a week; Duration: days 01/08/2025 Active Wegovy 0.25 MG/0.5ML Solution Auto-injector 0.5 mL Subcutaneous once a week; Duration: 30 days 01/08/2025 Active dexAMETHasone 1 MG Tablet 1 tablet Orally at 10 pm night before 8 am cortisol; Duration: 1 07/30/2024 Active Lexapro *Pick strength-form from [employer] for eRX* Active Metoprolol Succinate 25 MG Capsule ER 24 Hour Sprinkle 1 capsule Orally Once a day Active Social History Social History Additional Details Category Social Info Options Details Migrated Social History Migrated Social History (Alcohol:):no (Recreational drug use:):no (Smoking:):no Section Notes: caffeine: no Problems Problem Type SNOMED Code ICD Code Onset Dates Problem Status W/U Status Risk Notes Problem Hypothyroidism (36714838) Hypothyroidism, unspecified (E03.9) Active confirmed Problem Autoimmune thyroiditis (82329843) Autoimmune thyroiditis (E06.3) Active confirmed Problem Disorder of endocrine ovary (disorder) (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) Other ovarian dysfunction (E28.8) Active confirmed Problem Vitamin D deficiency (28366919) Vitamin D deficiency, unspecified (E55.9) Active confirmed Problem Obesity (293089449) Obesity, unspecified (E66.9) Active confirmed Problem Obstructive sleep apnea syndrome (disorder) (42115430) Obstructive sleep apnea (adult) (pediatric) (G47.33) Active confirmed Problem Goiter (1845339) Goiter (E04.9) Active confirme d Problem Obstructive sleep apnea (21388671) Obstructive sleep apnea (G47.33) Active confirmed Vital Signs Heart Rate 62 /min 01/08/2025 Respiratory Rate 12 /min 01/08/2025 Height-cm 160.02 cm 01/08/2025 Blood pressure diastolic 68 mm Hg 01/08/2025 Weight-kg 92.53 kg 01/08/2025 Height 63 in 01/08/2025 Blood pressure systolic 120 mm Hg 01/08/2025 Weight 204 lbs 01/08/2025 BMI 36.13 kg/m2 01/08/2025 Encounters Encounter Location Date Provider Diagnosis [facility] Dr[facility] Lee [address] [place] [phone] 07/30/2024 Valeria Wood Obesity, unspecified E66.9 ; Insulin resistance, unspecified E88.819 ; Autoimmune thyroiditis E06.3 ; Other fatigue R53.83 ; Vitamin D deficiency, unspecified E55.9 ; Dietary counseling and surveillance Z71.3 and Other ovarian dysfunction E28.[address] Lee [address] [place] [phone] 08/28/2024 Valeria Lee Autoimmune thyroidit is E06.3 ; Obesity, unspecified E66.9 ; Vitamin D deficiency, unspecified E55.9 ; Hypothyroidism, unspecified E03.9 and Obstructive sleep apnea (adult) (pediatric) G47.[address] Lee [address] [place] [phone] 11/20/2024 Valeria Lee Obesity, unspecified E66.9 ; Autoimmune thyroiditis E06.3 ; Vitamin D deficiency, unspecified E55.9 ; Hypothyroidism, unspecified E03.9 ; Obstructive sleep apnea G47.33 and Goiter E04.[address] Lee [address] [place] [phone] 01/08/2025 Valeria Lee Autoimmune thyroidit is E06.3 ; Hypothyroidism, unspecified E03.9 ; Vitamin D deficiency, unspecified E55.9 and Obesity, unspecified E66.9 [facility] [address] [place] [phone] 08/06/2024 Valeria Lee [address] [place] [phone] 08/17/2024 Valeria Lee [facility] [address] [place] [phone] 08/17/2024 Valeria Lee Hypothyroidism, unspecified E03.9 [facility] [address] [place] [phone] 08/17/2024 Valeria Lee Hypothyroidism, unspecified E03.9 [facility] Lee [address] [place] [phone] 09/02/2024 Valeria Lee Impaired fasting glucose R73.[address] [address] 09/04/2024 Valeria CERVANTES [address] [phone] 12/09/2024 Valeria CERVANTES [facility] [address] [place] [phone] 12/10/2024 Valeria Lee [address] [place] [phone] 12/09/2024 Valeria Lee [address] [place] [phone] 01/01/2025 Valeria Lee Assessments Encounter Date Diagnosis (ICD Code) Assessment Notes Treatment Notes Treatment Clinical Notes Section Notes 01/08/2025 Autoimmune thyroiditis (ICD-10 - E06.3) 11/20/2024 Autoimmune thyroiditis (ICD-10 - E06.3) 11/20/2024 Obesity, unspecified (ICD-10 - E66.9) 09/02/2024 Impaired fasting glucose (ICD-10 - R73.01) 08/28/2024 Autoimmune thyroiditis (ICD-10 - E06.3) 08/17/2024 Hypothyroidism, unspecified (ICD-10 - E03.9) 08/17/2024 Hypothyroidism, unspecified (ICD-10 - E03.9) 08/28/2024 Obesity, unspecified (ICD-10 - E66.9) 07/30/2024 Obesity, unspecified (ICD-10 - E66.9) 07/30/2024 Insulin resistance, unspecified (ICD-10 - E88.819) 07/30/2024 Autoimmune thyroiditis (ICD-10 - E06.3) 08/28/2024 Vitamin D deficiency, unspecified (ICD-10 - E55.9) 11/20/2024 Vitamin D deficiency, unspecified (ICD-10 - E55.9) 01/08/2025 Hypothyroidism, unspecified (ICD-10 - E03.9) 11/20/2024 Hypothyroidism, unspecified (ICD-10 - E03.9) 01/08/2025 Vitamin D deficiency, unspecified (ICD-10 - E55.9) 08/28/2024 Hypothyroidism, unspecified (ICD-10 - E03.9) 07/30/2024 Other fatigue (ICD-10 - R53.83) 08/28/2024 Obstructive sleep apnea (adult) (pediatric) (ICD-10 - G47.33) 11/20/2024 Obstructive sleep apnea (ICD-10 - G47.33) 07/30/2024 Vitamin D deficiency, unspecified (ICD-10 - E55.9) 01/08/2025 Obesity, unspecified (ICD-10 - E66.9) 11/20/2024 Goiter (ICD-10 - E04.9) 07/30/2024 Dietary counseling and surveillance (ICD-10 - [...] with intent to titrate- Send prescription to [facility] 3. Polycystic Ovary Syndrome (PCOS)- Offer compounding [...] examination and/or evaluation, counseling and educating the patient/family/car egiver, ordering medications, tests, or procedures, referring and communicating with other health child care development specialist, documenting clinical information in the electronic or other health record, independently interpreting results and communicating results to the patient/family/car egiver and care coordinating patient plan. Patient alert [...] examination and/or evaluation, counseling and educating the patient/family/car egiver, ordering medications, tests, or procedures, referring and communicating with other health child care development specialist, documenting clinical information in the electronic or other health record, independently interpreting results and communicating results to the patient/family/car egiver and care coordinating patient plan. Patient alert [...] were discussed and all questions were answered. 11/20/2024 Other Assessment and Plan: 1. Obesity with Sleep Apnea- Submit prior authorization for Zepbound, citing sleep apnea as the qualifying condition- Follow up on CPAP initiation with new insurance- Continue metformin 500 mg daily pending Zepbound approval- Reassess treatment plan in 2-3 months 2. Hypothyroidism- Order thyroid function tests- Schedule thyroid ultrasound- Continue levothyroxine 125 mcg daily- Perform dexamethasone suppression test 3. Polycystic Ovary Syndrome (PCOS)- Restart spironolactone 50 mg daily for acne and hirsutism- Continue metformin 500 mg daily for PCOS management 4. Routine Health Maintenance- Order comprehensive metabolic panel, lipid panel, and HbA1c- Patient to obtain laboratory tests after insurance change- Follow up with results at next appointment in 2-3 months Spent 25 minutes preparing to see the patient (ex review of tests/chart), obtaining and / or reviewing separately obtained history, performing a medically appropriate examination and/or evaluation, counseling and educating the patient/family/car egiver, ordering medications, tests, or procedures, referring and communicating with other health child care development specialist, documenting clinical information in the electronic or other health record, independently interpreting results and communicating results to the patient/family/car egiver and care coordinating patient plan. Patient alert and oriented x 4 and aware of discussion noted above and in agreeance to plan in management of obesity, hypothyroidism, weight management, vit D def. Due to the nature of telemedicine, the [...] were discussed and all questions were answered. Assessment and Plan: 1. Obesity with Sleep Apnea- Submit prior authorization for [employer], citing sleep apnea as the qualifying condition- Follow up on CPAP initiation with new insurance- Continue metformin 500 mg daily [place] [facility] [place]- Reassess treatment plan in 2-3 months 2. Hypothyroidism- Order thyroid function tests- Schedule thyroid ultrasound- Continue levothyroxine 125 mcg daily- Perform dexamethasone suppression test 3. Polycystic Ovary Syndrome (PCOS)- Restart spironolactone 50 mg daily for acne and hirsutism- Continue metformin 500 mg daily for PCOS management 4. 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 Obesity with Inflammation- Attempt to obtain insurance approval for Wegovy (semaglutide)- If Wegovy is denied, consider compounded tirzepatide as an alternative- Discuss compounded tirzepatide option with patient (cost: $290/month, $75/shot, once monthly)- Compounded tirzepatide includes B12 for energy and nausea management- Encourage gluten-free diet to manage inflammation- Follow up in 2-3 months 3. Vitamin D Deficiency- Recommend utax-khl-pppnogo vitamin D supplementation, 2,000 to 4,000 IU daily 4. Hypertension- Continue current management- Monitor blood pressure 5. Sleep Apnea- Consider ordering a sleep study if needed for insurance approval of weight loss medications Spent 25 minutes preparing to see the patient (ex review of tests/chart), obtaining and / or reviewing separately obtained history, performing a medically appropriate examination and/or evaluation, counseling and educating the patient/family/car egiver, ordering medications, tests, or procedures, referring and communicating with other health child care development specialist, documenting clinical information in the electronic or other health record, independently interpreting results and communicating results to the patient/family/car egiver and care coordinating patient plan. Patient alert and oriented x 4 and aware of discussion noted above and in agreeance to plan in management of PCOS, hypothyroidism, obesity/weight management. Due to the nature of telemedicine, the [...] all questions were answered. Plan Of Treatment Pending Test Test Name Order Date *US HEAD AND NECK/THYROID [id number] 11/21/19 25 Insurance Providers Payer Name Payer Address Payer Phone Subscriber Number Group Number Insured Name Patient Relationship to Insured Coverage Start Date Coverage End Date TYLER PHELPS [address] [place] [address] [id number] Sammi Carnes Self - patient is the insured Medical (General) History Medical History History ICD Code thyroid issues PCOS
--- OUTSIDE RECORDS SUMMARY | 2025-03-09 00:31 | XMS_ITS | Encounter Summary ---
Author Organization [facility] Address [address] [place] [id number] Care Team Providers Care Combination Machine Tender Name Role Phone Jaqui Hardwick Primary Care Provider [phone] Xiomara Odom DO Primary Care Provider [phone] Encounter Details Date Type Department Care Team (Late st Contact Info) Description 04/20/2003 Abstract [facility] Conversion Md, Generic Conversion, Social [...] on filedocumented in this encounter Care Teams Combination Machine Tender Relationship Specialty Start Date End Date Jaqui Hardwick PA PCP - General PHYSICIAN WATER TEAM LEADER 10/03/18 03/29/21 Xiomara Odom DO PCP - General FAMILY PRACTICE 03/30/21 documented as of this encounter
--- OUTSIDE RECORDS SUMMARY | 2025-03-09 00:31 | XMS_ITS | Encounter Summary ---
Author Organization [facility] Address [address] [place] [address] Care Team Providers Care Shell Fisherman Name Role Phone Jaqui Hardwick Primary Care Provider [phone] Xiomara Odom DO Primary Care Provider [phone] Encounter Details Date Type Department Care Team (Late st Contact Info) Description 10/03/2017 Abstract [facility] Conversion Md, Generic Conversion, Social [...] on filedocumented in this encounter Care Teams Shell Fisherman Relationship Specialty Start Date End Date Jaqui Hardwick PA PCP - General PHYSICIAN ACCOUNTS RECEIVABLE ADMINISTRATOR 10/03/18 03/29/21 Xiomara Odom DO PCP - General FAMILY PRACTICE 03/30/21 documented as of this encounter
--- OUTSIDE RECORDS SUMMARY | 2025-03-09 00:31 | XMS_ITS | Patient Health Record ---
Author Organization [facility] Address [address] [address] Care Team Providers Care Tap Puller Name Role Phone Valeria Lee Primary Care [...] Status Risk Notes Problem Vitamin D deficiency (28947871) Vitamin D deficiency, unspecified (E55.9) Active confirmed Problem Hypothyroidism (29802596) Hypothyroidism, unspecified (E03.9) Active confirmed Problem Obstructive sleep apnea syndrome (disorder) (06880427) Obstructive sleep apnea (adult) (pediatric) (G47.33) Active confirmed Problem Obesity (406643981) Obesity, unspecified (E66.9) Active confirmed Problem Autoimmune thyroiditis (56554643) Autoimmune thyroiditis (E06.3) Active confirmed Problem Disorder of endocrine ovary (disorder) (15207595) Other ovarian dysfunction (E28.8) Active confirmed Vital Signs Heart Rate 72 /min 08/28/2024 Respiratory Rate 12 /min 08/28/2024 Blood pressure diastolic 72 mm Hg 08/28/2024 Height 63 in 08/28/2024 Blood pressure systolic 120 mm Hg 08/28/2024 Weight 205 lbs 08/28/2024 BMI 36.31 kg/m2 08/28/2024 Encounters Encounter Location Date Provider Diagnosis [facility] - Valeriavarsha Lee [address] [place] [address] 07/30/2024 Valeria Lee Insulin resistance, unspecified E88.819 ; Obesity, unspecified E66.9 ; Autoimmune thyroiditis E06.3 ; Other fatigue R53.83 ; Vitamin D deficiency, unspecified E55.9 ; Dietary counseling and surveillance Z71.3 and Other ovarian dysfunction E28.8 [facility] [address] [place] [address] 08/06/2024 Valeria Lee [facility], [facility] - Valeria [employer] [address] [place] [address] 08/17/2024 Valeria Lee [facility] [address] [place] [address] 08/17/2024 Valeria Lee Hypothyroidism, unspecified E03.9 [facility] [address] [place] [address] 08/17/2024 Valeria Lee Hypothyroidism, unspecified E03.9 [facility], [facility] - Valeria Lee [address] [place] [address] 09/02/2024 Valeria Lee Impaired fasting glucose R73.01 [facility] [address] [place] [address] 09/04/2024 Valeria Lee [facility], [facility] - Valeria Lee [address] [place] [address] 08/28/2024 Valeria Lee Obesity, unspecified E66.9 ; [...] with intent to titrate- Send prescription to [facility] 3. Polycystic Ovary Syndrome (PCOS)- Offer compounding [...] procedures, referring and communicating with other health student career development specialist, documenting clinical information in the [...] procedures, referring and communicating with other health student career development specialist, documenting clinical information in the [...] Date Coverage End Date [address] [place] [address] [id number] Sammi Carnes Self - patient is the insured Medical (General) History Medical History History ICD Code thyroid issues PCOS
--- OUTSIDE RECORDS SUMMARY | 2025-03-09 00:31 | XMS_ITS ---
Author Organization [facility] Address [address] [address] Care Team Providers Care Deputy Sheriff Generalist Name Role Phone Valeria Lee [phone] REASON FOR VISIT lab f/u (text link) Encounters Encounter Location Date Provider Diagnosis [facility] [address] Lee [address] [place] [address] 02/23/2025 Valeria Lee Plan Of Treatment No Information Progress Notes * Sammi LUNADOB:[birth year] (39 yo F)Acc No.[id number]:02/23/2025 Progress Note Patient: [place] marinaroderickSammi Provider: Lupe Lee MD :1985 A ge:39 Y S ex:Female Date:02/23/2025 Address:[address], [facility] Subjective: * Chief Complaints: * L ab f/u (text link) * Electronic signature of Charanjit Lee MD on 03/09/2025 at 12:31 AM CDT Sign off status: Pending * Provider: Lupe Lee MD Date: 02/23/2025 Generated for Yousufi gail/Lauren/eTransmitting on: 03/09/2025 12:31 AM CDT
--- OUTSIDE RECORDS SUMMARY | 2025-03-09 00:31 | XMS_ITS | Encounter Summary ---
Author Organization [facility] Address [address] [place] [address] Care Team Providers Care Photo Stylist Name Role Phone Jaqui Hardwick Primary Care Provider [phone] Xiomara Odom DO Primary Care Provider [phone] Encounter Details Date Type Department Care Team (Late st Contact Info) Description 10/09/2017 Abstract [facility] Conversion Md, Generic Conversion, Social [...] on filedocumented in this encounter Care Teams Photo Stylist Relationship Specialty Start Date End Date Jaqui Hardwick PA PCP - General PHYSICIAN GLUTEN SETTLING TENDER 10/03/18 03/29/21 Xiomara Odom DO PCP - General FAMILY PRACTICE 03/30/21 documented as of this encounter
--- OUTSIDE RECORDS SUMMARY | 2025-03-09 00:32 | XMS_ITS | Encounter Summary ---
Author Organization [facility] Address [address] [place] [address] Care Team Providers Care Bag Machine Helper Name Role Phone Jaqui Hardwick Primary Care Provider [phone] Xiomara Odom DO Primary Care Provider [phone] Encounter Details Date Type Department Care Team (Late st Contact Info) Description 05/27/2014 Abstract [facility] Conversion Md, Generic Conversion, Social [...] on filedocumented in this encounter Care Teams Bag Machine Helper Relationship Specialty Start Date End Date Jaqui Hardwick PA PCP - General PHYSICIAN LINOLEUM FLOOR LAYER 10/03/18 03/29/21 Xiomara Odom DO PCP - General FAMILY PRACTICE 03/30/21 documented as of this encounter
--- OUTSIDE RECORDS SUMMARY | 2025-03-09 00:32 | XMS_ITS | Encounter Summary ---
Author Organization [facility] Address [address] [place] [address] Care Team Providers Care Jewelry Inspector Name Role Phone Jaqui Hardwick Primary Care Provider [phone] Xiomara Odom DO Primary Care Provider [phone] Encounter Details Date Type Department Care Team (Late st Contact Info) Description 12/05/2017 Abstract [facility] Conversion Md, Generic Conversion, [...] on filedocumented in this encounter Care Teams Jewelry Inspector Relationship Specialty Start Date End Date Jaqui Hardwick PA PCP - General PHYSICIAN DEAN OF STUDENTS 10/03/18 03/29/21 Xiomara Odom DO PCP - General FAMILY PRACTICE 03/30/21 documented as of this encounter
--- OUTSIDE RECORDS SUMMARY | 2025-03-09 00:32 | XMS_ITS | Encounter Summary ---
Author Organization [facility] Address [address] [place] [address] Care Team Providers Care Warehouse Material Handler Name Role Phone Jaqui Hardwick Primary Care Provider [phone] Xiomara Odom DO Primary Care Provider [phone] Encounter Details Date Type Department Care Team (Late st Contact Info) Description 12/20/2010 Abstract [facility] Conversion Md, Generic Conversion, Social History [...] on filedocumented in this encounter Care Teams Warehouse Material Handler Relationship Specialty Start Date End Date Jaqui Hardwick PA PCP - General PHYSICIAN RN RADIOLOGY 10/03/18 03/29/21 Xiomara Odom DO PCP - General FAMILY PRACTICE 03/30/21 documented as of this encounter
--- OUTSIDE RECORDS SUMMARY | 2025-03-09 00:32 | XMS_ITS | Encounter Summary ---
Author Organization [facility] Address [address] [place] [address] Care Team Providers Care Library Clerk Name Role Phone Jaqui Hardwick Primary Care Provider [phone] Xiomara Odom DO Primary Care Provider [phone] Encounter Details Date Type Department Care Team (Late st Contact Info) Description 06/23/2005 Abstract [facility] Conversion Md, Generic Conversion, [...] on filedocumented in this encounter Care Teams Library Clerk Relationship Specialty Start Date End Date Jaqui Hardwick PA PCP - General PHYSICIAN SCHOOL BUSINESS MANAGER 10/03/18 03/29/21 Xiomara Odom DO PCP - General FAMILY PRACTICE 03/30/21 documented as of this encounter
--- OUTSIDE RECORDS SUMMARY | 2025-03-09 00:32 | XMS_ITS | Encounter Summary ---
Author Organization [facility] Address [address] [place] [address] Care Team Providers Care Digital Media Coordinator Name Role Phone Jaqui Hardwick Primary Care Provider [phone] Xiomara Odom DO Primary Care Provider [phone] Encounter Details Date Type Department Care Team (Late st Contact Info) Description 06/26/2005 Abstract [facility] Conversion Md, Generic Conversion, Social History [...] on filedocumented in this encounter Care Teams Digital Media Coordinator Relationship Specialty Start Date End Date Jaqui Hardwick PA PCP - General PHYSICIAN BOARD MILL SUPERVISOR 10/03/18 03/29/21 Xiomara Odom DO PCP - General FAMILY PRACTICE 03/30/21 documented as of this encounter
--- OUTSIDE RECORDS SUMMARY | 2025-03-09 00:32 | XMS_ITS | Clinical Summary ---
Author Organization 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 Gender Identity Not on file Sexual Orientation Not on file Plan of Treatment Health Maintenance Due Date Last Done Comments Cervical Cancer Screening 1985 Depression Screening 1985 Hepatitis C Screening 1985 DTaP/Tdap/Td Vaccine (5 - Tdap) 06/28/1999 06/27/1999, 04/24/1991, 04/24/1991, Additional history exists Regular Well Visit/Exam 18-64 2004 Influenza Vaccine (#1) 2025 9, 05/27/2015, 05/25/2014, Additional history exists Varicella Vaccines Completed 04/24/1991, 08/22/1987 Hepatitis B Screening Completed 06/07/1998 , 07/30/1997, 06/29/1997, Additional history exists HPV Vaccines Aged Out No longer eligi ble based on patient's age to complete this topic Pneumococcal vaccine <65 Aged Out No longer eligible based on patient's age to complete this topic Insurance [employer] [facility] [employer] Address: [address] [place] [address] [facility] Care Teams Pastry Cook Helper Relationship Specialty Start Date End Date Flor Rodriguez PA [address] [place] [address] PCP - General Family Practice 09/12/23 Philipp Sherman MD [address] [place] [address] Referring Physician Obstetrics and Gynecology 06/04/22 Leobardo Turk MD [address] [place] [address] Referring Physician Obstetrics and Gynecology 06/04/22
--- OUTSIDE RECORDS SUMMARY | 2025-03-09 00:32 | XMS_ITS | Encounter Summary ---
Author Organization [facility] Address [facility] [place] [address] Care Team Providers Care Biological Plant Operator Name Role Phone Jaqui Hardwick Primary Care Provider [phone] Xiomara Odom DO Primary Care Provider [phone] Encounter Details Date Type Department Care Team (Late st Contact Info) Description 02/05/2018 Abstract [facility] Conversion Jaqui Hardwick PA [address] [place] [address] Social History Tobacco Use Types [...] 12:00 AM CDT 02-05-2018 Sammi Carnes [address] [place] [address] : 1985 Lab Order: TSH, free T4 E03.9 Hypothyroidism, unspecified Fasting [] Non-Fasting [x] Normal [x] Stat [] ION INSTALLER documented in this encounter Plan of Treatment Not on file documented as of this encounter Visit Diagnoses Not on filedocumented in this encounter Care Teams Biological Plant Operator Relationship Specialty Start Date End Date Jaqui Hardwick PA PCP - General PHYSICIAN DRILL PRESS OPERATOR 10/03/18 03/29/21 Xiomara Odom DO PCP - General FAMILY PRACTICE 03/30/21 documented as of this encounter
--- OUTSIDE RECORDS SUMMARY | 2025-03-09 00:32 | XMS_ITS | Clinical Summary ---
Author Organization [facility] Address [address] [place] [address] Care Team Providers Care Sales Consultant Insurance Name Role Phone LeiXiomara Primary Care Provider [phone] Allergies No known active allergies Medications lorazepam [...] 05/25/2013 Anxiety 11/25/2012 Raynaud's disease 10/20/2012 Immunizations Immunization Administration Dates Next Due Dtap (Generic) 04/24/1991,02/01/1988,02/22/1987 [...] Comments Blood Pressure 120/78 08/10/2019 7:30 AM AGER OPERATOR Pulse 80 08/10/2019 7:30 AM AGER OPERATOR Temperature 37.1 C (98.7 F) 08/10/2019 7:30 AM AGER OPERATOR Respiratory Rate 20 08/10/2019 7:30 AM AGER OPERATOR Oxygen Saturation 98% 08/10/2019 7:30 AM AGER OPERATOR Inhaled Oxygen Concentration - - Weight 73.5 kg (162 lb) 08/10/2019 7:30 AM AGER OPERATOR Height 161.3 cm (5' 3.5) 08/10/2019 7:30 AM AGER OPERATOR Body Mass Index 28.25 08/10/2019 7:30 AM AGER OPERATOR Plan of Treatment Health Maintenance Due [...] HPV 2016 COVID-19 Vaccine ( season) 2024 Hepatitis B Vaccines Completed 06/07/1998, 07/30/1997, 06/29/1997, [...] 5 Years) and At-Risk Patients (6 to 49 Years) Aged Out No longer eligible based on patient's age to complete this topic RSV Immunizations Under 20 Months Aged Out No longer eligible based on patient's age to complete this topic Insurance [facility] [place] [address] Care Teams Sales Consultant Insurance Relationship Specialty Start Date End Date Xiomara Odom DO PCP - General FAMILY PRACTICE 03/30/21
--- OUTSIDE RECORDS SUMMARY | 2025-03-09 00:32 | XMS_ITS | Referral Summary ---
Author Organization [facility] Address [facility] [place] [address] Care Team Providers Care Home Improvement Installer Name Role Phone Flor Rodriguez Primary Care Provider [phone] Philipp Sherman MD Unavailable [phone] Leobardo Turk MD Unavailable [phone] Allergies No known active allergies Medications No known medications Active Problems No known active problems Social History Tobacco Use Types Packs/Day Years Used Date Smoking Tobacco: Never Assessed Comments Unknown Sex and Gender Information Value Date Recorded Sex Assigned at Not on file Legal Sex Female 8: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 Care Teams Home Improvement Installer Relationship Specialty Start Date End Date Flor Rodriguez PA [address] [place] [address] PCP - General Family Practice 09/12/23 Philipp Sherman MD [address] [place] [address] Referring Physician Obstetrics and Gynecology 06/04/22 Leobardo Turk MD [address] [place] [address] Referring Physician Obstetrics and Gynecology 06/04/22
--- OUTSIDE RECORDS SUMMARY | 2025-03-09 00:32 | XMS_ITS | Data Portability ---
Author Organization [place] [facility] [employer], Main Office Address [address] [place] [address] Assessment No assessment recorded. Plan of Treatment Reminders Order Date Submit Date Provider Last Modified By Organization Details Last Modified Time Details Appointments None recorded. Lab vitamin B12 + folate, serum or blood [address] [place] [address] (Lab), [address] [place] [address], [address], 3 09:35:31 lipid panel, serum [address] [place] [address] (Lab), [address] [place] [address], [address], 3 09:35:31 vitamin D, 25-hydroxy , total, serum [address] [place] [address] (Lab), [address] [place] [address], [address], 3 09:35:31 insulin, serum [address] (Lab), [address] [place] [address], [address], 3 09:35:31 HbA1c (hemoglobi n A1c), blood [address] [place] [address] (Lab), [address] [place] [address], [address], 3 09:35:31 T3, free, serum or plasma [address] [place] [address] (Lab), [facility] [address], [place], [address], 3 09:35:31 TSH + free T4, serum [address] (Lab), [address] [place] [address] [address], [place], [address], 3 09:35:31 CMP, serum or plasma [address] (Lab), [facility] [address], [place], [address], 3 09:35:31 Referral None recorded. Procedures None recorded. Surgeries None recorded. Imaging None recorded. Medication Orders Synthroid 125 mcg tablet 2022 023 [facility], [address] [facility] , [address], [place], [address], 3 09:34:54 Patient TargetsNo targets recorded. Patient InstructionsNo instructions recorded. Reason for Referral None Reported. Results Created Date Observation Date Name Description Value Unit Range Abnormal Flag Note LastModifiedBy Organization Detail LastModifiedTime 07/05/20 21 07/08/2021 TESTO STERO NE, FREE (DIAL YSIS) AND TOTAL ,MS testosterone , total, MS 51 NG/dL 2-45 high For addit ional infor ashish smith refer to https ://ed ucati on.qu calvin [employer]. com/f aq/FA Q165 (This link is being provi ded for infor matbebo nal/e ducat ional purpo ses only. ) (Note ) This test was devel oped and its bert tical perfo rmanc e katherine cteri stics have been deter mined by [employer]. It has not been clear ed or appro joshua by the FDA. This assay has been valid ated pursu ant to the CLIA regul ation s and is used for clini shannan purpo ses. Not Available [facility] [employer] [facility] [address] [place], [address], 07/08/2021 12:41:47 07/05/20 21 07/08/2021 TESTO STERO NE, FREE (DIAL YSIS) AND TOTAL ,MS testosterone , free 4.6 pg/mL 0.1-6. 4 (Note ) This test was devel oped and its bert tical perfo rmanc e katherine cteri stics have been deter mined by [employer]. It has not been clear ed or appro joshua by the FDA. This assay has been valid ated pursu ant to the CLIA regul ation s and is used for clini shannan purpo ses. MDF med fusio n [address] [facility] [address] [facility] [place] [address] [phone] Dhiraj huerta MD Your reque st to have a localbaconli bessie copy faxed has been sandra reederg ed. Queue d to: [phone] Queue d to: [phone] Not Available [employer] [address] [address] [place], [address], 07/08/2021 12:41:47 07/05/2007/08/2021 TESTO STERO NE, FREE (DIAL YSIS) AND TOTAL ,MS copy(ies) sent to: [facility] [employer] [facility] [address] [place] [address] Not Available [employer] [address] [address] [place], [address], 07/08/2021 12:41:47 07/05/20 21 07/08/2021 T3, FREE T3, free 2.9 pg/mL 2.3-4. 2 normal Not Available [employer] [address] [address] [place], [address], 07/08/2021 12:41:47 07/05/20 21 07/08/2021 T3, FREE copy(ies) sent to: [facility] [employer] [facility] [address] [place] [address] Not Available [employer] [address] [address] [place], [address], 07/08/2021 12:41:47 07/05/2007/08/2021 VITAM IN B12/F OLATE , SERUM PANEL vitamin B12 435 pg/mL 200-11 00 normal Not Available [address] [place], [address], 07/08/2021 12:41:46 07/05/2007/08/2021 VITAM IN B12/F OLATE , SERUM PANEL folate, serum 21.6 NG/mL normal Refer ence Range Low: <3.4 Borde rline : 3.4-5 .4 Pamela l: >5.4 Not Available [address], [address], 07/08/2021 12:41:46 07/05/2007/08/2021 VITAM IN B12/F OLATE , SERUM PANEL copy(ies) sent to: [employer] [facility] [address] [facility] [place] [address] Not Available [employer] [address], [address], 07/08/2021 12:41:46 07/05/2007/08/2021 TSH TSH 5.38 mIU/L high Refer ence Range > or = 20 Years 0.40- 4.50 Pregn shelly Range s First trime ster 0.26- 2.66 Secon d trime ster 0.55- 2.73 Third trime ster 0.43- 2.91 Not Available [employer] [address] [place], [address], 07/08/2021 12:41:46 07/05/2007/08/2021 TSH copy(ies) sent to: [facility] [facility] [address] [facility] [place] [address] Not Available [employer] [address], [address], 07/08/2021 12:41:46 07/05/2007/08/2021 T4, FREE T4, free 1.0 NG/dL 0.8-1. 8 normal Not Available [employer] [address] [address] [place], [address], 07/08/2021 12:41:45 07/05/20 21 07/08/2021 T4, FREE copy(ies) sent to: [facility] [employer] [facility] [address] [place] [address] Not Available [employer] [address] [address] [place], [address], 07/08/2021 12:41:45 07/05/2007/08/2021 INSUL IN insulin 19.1 [...] (dete jane, gluli sine) . Not Available [employer] [address] [address] [place], [address], 07/08/2021 12:41:45 07/05/20 21 07/08/2021 INSUL IN copy(ies) sent to: [facility] [employer] [facility] [address] [place] [address] Not Available [employer] [address] [address] [place], [address], 07/08/2021 12:41:45 07/05/20 21 07/08/2021 DHEA SULFA TE DHEA sulfate 257 mcg/d L 23-266 normal Not Available [employer] [address] [address] [place], [address], 07/08/2021 12:41:44 07/05/2007/08/2021 DHEA SULFA TE copy(ies) sent to: [facility] [address] [place] [address] Not Available [address] [address] [place], [address], 07/08/2021 12:41:44 07/05/2007/08/2021 COMPR EHENS JULIA METAB OLIC PANEL glucose 81 mg/dL 65-99 normal Fasti ng refer ence inter valencia Not Available [address] [address] [place], [address], 07/08/2021 12:41:44 07/05/2007/08/2021 COMPR EHENS JULIA METAB OLIC PANEL urea nitrogen (BUN) 14 mg/dL 7-25 normal Not Available [address] [address] [place], [address], 07/08/2021 12:41:44 07/05/20 21 07/08/2021 COMPR EHENS JULIA METAB OLIC PANEL creatinine 0.78 mg/dL 0.50-1 .10 normal Not Available [address] [address] [place], [address], 07/08/2021 12:41:44 07/05/20 21 07/08/2021 COMPR EHENS JULIA METAB OLIC PANEL eGFR non-afr. welsh 98 mL/mi n/1.7 3m2 > or = 60 normal Not Available [employer] [address] [address] [place], [address], 07/08/2021 12:41:44 07/05/20 21 07/08/2021 COMPR EHENS JULIA METAB OLIC PANEL eGFR 114 mL/mi n/1.7 3m2 > or = 60 normal Not Available [address] [address] [place], [address], 07/08/2021 12:41:44 07/05/20 21 07/08/2021 COMPR EHENS JULIA METAB OLIC PANEL BUN/creatini ne ratio not applic able (calc ) 6-22 Not Available [address], [address], 07/08/2021 12:41:44 07/05/20 21 07/08/2021 COMPR EHENS JULIA METAB OLIC PANEL sodium 141 mmol/ L 135-14 6 normal Not Available [address], [address], 07/08/2021 12:41:44 07/05/20 21 07/08/2021 COMPR EHENS JULIA METAB OLIC PANEL potassium 4.4 mmol/ L 3.5-5. 3 normal Not Available [address], [address], 07/08/2021 12:41:44 07/05/20 21 07/08/2021 COMPR EHENS JULIA METAB OLIC PANEL chloride 104 mmol/ L 98-110 normal Not Available [address], [address], 07/08/2021 12:41:44 07/05/20 21 07/08/2021 COMPR EHENS JULIA METAB OLIC PANEL carbon dioxide 24 mmol/ L 20-32 normal Not Available [address], [address], 07/08/2021 12:41:44 07/05/20 21 07/08/2021 COMPR EHENS JULIA METAB OLIC PANEL calcium 9.4 mg/dL 8.6-10 .2 normal Not Available [address], [address], 07/08/2021 12:41:44 07/05/20 21 07/08/2021 COMPR EHENS JULIA METAB OLIC PANEL protein, total 7.0 g/dL 6.1-8. 1 normal Not Available [address] [address] [place], [address], 07/08/2021 12:41:44 07/05/20 21 07/08/2021 COMPR EHENS JULIA METAB OLIC PANEL albumin 4.3 g/dL 3.6-5. 1 normal Not Available [address] [address] [place], [address], 07/08/2021 12:41:44 07/05/20 21 07/08/2021 COMPR EHENS JULIA METAB OLIC PANEL globulin 2.7 g/dL_ (calc ) 1.9-3. 7 normal Not Available [address] [address] [place], [address], 07/08/2021 12:41:44 07/05/20 21 07/08/2021 COMPR EHENS JULIA METAB OLIC PANEL albumin/glob ulin ratio 1.6 (calc ) 1.0-2. 5 normal Not Available [address] [address] [place], [address], 07/08/2021 12:41:44 07/05/2007/08/2021 COMPR EHENS JULIA METAB OLIC PANEL bilirubin, total 0.3 mg/dL 0.2-1. 2 normal Not Available [address] [address] [place], [address], 07/08/2021 12:41:44 07/05/20 21 07/08/2021 COMPR EHENS JULIA METAB OLIC PANEL alkaline phosphatase 64 U/L 31-125 normal Not Available [facility] [employer] [address] [address] [place], [address], 07/08/2021 12:41:44 07/05/20 21 07/08/2021 COMPR EHENS JULIA METAB OLIC PANEL AST 10 U/L 10-30 normal Not Available [address] [address] [place], [address], 07/08/2021 12:41:44 07/05/20 21 07/08/2021 COMPR EHENS JULIA METAB OLIC PANEL ALT 8 U/L 6-29 normal Not Available [facility] [address] , [place], [address], 07/08/2021 12:41:44 07/05/20 21 07/08/2021 COMPR EHENS JULIA METAB OLIC PANEL copy(ies) sent to: [facility] [address] [place] [address] Not Available [employer] [facility] [address], [place], [address], 07/08/2021 12:41:44 05/30/20 21 05/30/2021 US, pelvi s, trans abdom inal + trans vagin al No observ ation record ed. [id number] [place] [address] [facility], [place], [address], 10/24/2022 20:27:55 07/18/20 21 07/18/2021 CT, neck, soft tissu e, w/wo contr ast No observ ation record ed. [id number] [place] [address] ([facility]) [address] [place] [address], [place], [address], 10/24/2022 20:27:55 07/27/20 21 07/27/2021 MAMMO , diagn ostic , digit al, bilat eral No observ ation record ed. [id number] [place] [address], [place], [address], 10/24/2022 20:27:55 04/12/20 22 04/12/2022 US, thyro id No observ ation record ed. [id number] [place] [address], [place], [address], 10/24/2022 20:27:55 12/08/19 25 12/05/2024 imagi ng/di agnos tic resul t No observ ation record ed. [facility] [address], [place], [address], 12/07/2024 18:45:58 12/09/19 25 12/05/2024 imagi ng/di farheenos tic resul t No observ ation record ed. [facility] [address], [place], [address], 12/08/2024 07:30:38 Result Notes None recorded. 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 Not Available [facility] 20:25:49 Hypothyroidis m due to Cheri's thyroiditis 346242994 Active 2022 Valeria Lee MD [address], [place], [address] , [employer] 3 10:25:23 Prediabetes 604169902 Active 2022 Valeria Lee MD [address], [place], [address] , [employer] 3 10:25:37 Hypothyroidis m 91110864 Active 2022 Valeria Lee MD [address], [place], [address] , [employer] 3 10:28:26 Loss of hair 100451075 Active 2022 Valeria Lee MD [address], [place], [address] , [employer] 3 10:28:32 Vitamin B12 deficiency (non anemic) 64300178 Active 2022 MD Jose Quiroga [address], [place], [address] , [employer] 3 09:33:32 Vitamin D deficiency 08134059 Active 2022 MD Jose [address], [place], [address] , [facility] [employer] [facility] [employer] [facility] 3 09:33:47 Hypertriglyce ridemia 970376489 Active 2022 Valeria Lee MD [address], [place], [address] , [facility] [employer] [facility] [employer] 3 09:34:42 Problem Notes None recorded. Procedures Surgical History Date Name Laterality Status Provider Name and Address Organization Details Recorded Time 07/27/20 21 Most Recent Mammogram completed Not Available [facility] 10/24/2022 20:24:10 03/04/20 19 other completed Not Available [facility] 10/24/2022 20:24:11 03/04/20 19 BOOM MASTER Procedure completed Not Available [facility] 10/24/2022 20:24:11 03/04/20 19 Hysteroscopy biopsy completed Not Available [facility] 10/24/2022 20:24:11 08/21/20 18 Date of Last Pap Smear completed Not Available [facility] 10/24/2022 20:24:10 09/25/19 13 BOOM MASTER Procedure completed Not Available [facility] 10/24/2022 20:24:11 11/17/19 11 BOOM MASTER Procedure completed Not Available [facility] 10/24/2022 20:24:11 Cholecystectomy completed Not Available [facility] 10/24/2022 20:24:11 Imaging Results None recorded. Procedure Notes None recorded. Medical Equipment None Reported. Allergies No known drug allergies Medications Name Sig Start Date Stop Date Status Note LastModified by Organization Details LastModified Time amoxicillin 500 mg capsule TAKE 1 CAPSULE BY MOUTH EVERY 8 HOURS FOR 10 DAYS 02/01 completed Not Available Not Available Not Available methocarbam ol 500 mg tablet 05/22 completed Not Available Not Available Not [...] administe red by the provider 12/30 completed [facility]: 0003- 0494- 20 Not Available Not Available [...] administe red by the provider 03/07 completed [facility]: 0409- 4276- 17 Not Available Not Available [...] Heart rate Body temperature Body weight Systolic And Diastolic Provider Name and Address Organization Details Last Updated DateTime 2 31.9 kg/m2 160.02 cm 98 % 98 % 89 /min 97.7 [degF] 56042.6 3 g 100/75 mm[Hg] Not Available [facility] 3 20:24:46 Date Recorded Body height Body mass index (BMI) Body weight Body temperature Heart rate Systolic And Diastolic Provider Name and Address Organization Details Last Updated DateTime 3 160.02 cm 33.3 kg/m2 50930.0 8 g 97.5 [degF] 69 /min 115/80 mm[Hg] JANESSA De Los Santos [place] [facility] 3 09:19:35 Date Recorded Body mass index (BMI) Body height Body temperature Body weight Systolic And Diastolic Provider Name and Address Organization Details Last Updated DateTime 05/22/2021 31.9 kg/m2 160.02 cm 97.6 [degF] 73818.6 3 g 114/76 mm[Hg] Not Available [facility] 3 20:24:46 Date Recorded Body mass index (BMI) Body height Heart rate Body temperature Body weight Systolic And Diastolic Provider Name and Address Organization Details Last Updated DateTime 2 33.3 kg/m2 160.02 cm 78 /min 97.8 [degF] 63484.6 5 g 118/82 mm[Hg] Not Available [facility] 3 20:24:46 Social History Question Answer Notes LastModified by Organizat ion Details LastModified Time Tobacco Smoking Status Never Smoker Not Available [employer] 10/24/2022 20:23:57 What Is Your Level Of Caffeine Consumption? Occasional [id number] Information not available 10/24/2022 How Much Tobacco Do You Chew? None [id number] Information not available 10/24/2022 In The 14 Days Before Symptom Onset, Have You Had Close Contact With A Laboratory-confirm ed COVID-19 While That Case Was Ill? No [id number] Information not available 10/24/2022 In The 14 Days Before Symptom Onset, Have You Had Close Contact With A Person Who Is Under Investigation For COVID-19 While That Person Was Ill? No [id number] Information not available 10/24/2022 What Is Your Relationship Status? [id number] Information not available 10/24/2022 Do You Use Your Seat Belt Or Car Seat Routinely? Yes [id number] 8065 Information not available 10/24/2022 Have You Recently Traveled Abroad? No [id number] Information not available 10/24/2022 Sex: Female Functional Status Question Answer Note LastModified by Organizat ion Details LastModified Time Do you use any illicit or recreational drugs? No [id number] Information not available 10/24/2022 What is your level of alcohol consumption? Occasional MIGRATION.[id number] 1407 Information not available 10/24/2022 Do you or have you ever used smokeless tobacco? 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 Never used electronic cigarettes MIGRATION.[id number] 7516 Information not available 10/24/2022 What is your exercise level? Occasional [id number] 5292 Information not available 10/24/2022 Mental Status None recorded. Family History Relationship Description Onset Age of this Age Resolved Age Notes LastModified by Organization Details LastModified Time Father Malignant neoplasm of lung [id number].012 [id number] Not available 10/24/2022 20:24:12 Father Heart disease MIGRATION.062 [id number] Not available 10/24/2022 20:24:12 Father Hypercholest erolemia MIGRATION.082 [id number] Not available 10/24/2022 20:24:12 Father Hemophilia MIGRATION.337 [id number] Not available 10/24/2022 20:24:12 Mother Hypercholest erolemia MIGRATION.011 [id number] Not available 10/24/2022 20:24:12 Mother Malignant tumor of breast MIGRATION.329 [id number] Not available 10/24/2022 20:24:12 Son Hemophilia MIGRATION.[id number] Not available 10/24/2022 20:24:12 Sister Cheri thyroiditis MIGRATION.666 [id number] Not available 10/24/2022 20:24:12 Medical History Condition Response HYPOTHYROIDISM Y THYROID DISEASE Y HEADACHES/MIGRAINES Y HYPERTENSION N Gynecological History Statement/Question Response Abnormal Pap Y [...] SNOMED-CT Code Diagnosis ICD10 Code Diagnosis Note [id number] [facility]_Histor ic_[facility] _ATHENA_M IGRATION_ DEFAULT_1 _1 , 11/30/2020 00:00:00 11/30/2020 14:06:54 [id number] Valeria Lee MD [facility]_Harini [facility] [place] [address] [place] [address] 12/30/2020 00:00:00 12/30/2020 13:37:02 [id number] Valerai Lee MD [facility] [place] [address] [place] [address] 03/07/2021 00:00:00 03/07/2021 17:17:59 [id number] [facility]_Histor ic_[facility] _ATHENA_M IGRATION_ DEFAULT_1 _1 , 05/22/2021 00:00:00 05/22/2021 10:16:15 [id number] Valeria Lee MD [facility] [place] [address] [place] [address] 07/07/2021 00:00:00 07/07/2021 16:24:56 [id number] Valeria Lee MD [facility] [place] [address] [place] [address] 11/27/2021 00:00:00 11/27/2021 15:25:13 [id number] Valeria Lee MD [facility]_GM [facility] [place] [address] [place] [address] 06/11/2022 00:00:00 06/11/2022 14:01:25 [id number] Valeria Lee MD [facility] [place] [address] [place] [address] 02/01/2023 09:00:53 02/01/2023 09:44:49 Hypothyroidism 38218523 E03.9 FT4 low normal range with continued [...] Provided informatio n on AIP diet. Prediabetes 936917059 R7 3.03 A1C of 5% in range- patient did not tolerate ozempic well in the past with severe nausea- weight stable but glucose in ideal range. Recommende d she incorporat e natural insulin lpn s such as pears, apples, cinnamon, kaitlin and sweet potatoes to help mobilize her endogenous insulin. Recommende d up to 150 minutes of moderate level activity/e xercise weekly. Vitamin B1 2 deficiency (non anemic) 09173062 E53.8 Agree with B12 injections starting at once weekly x 4 weeks then every other week thereafter to maintain levels. She will get through PCP. Vitamin D deficiency 347 85348 E55.9 Recommend she start on a low dose of 3493-5215 IU of vitamin D 3 daily until we can obtain current levels-thi s is important in bone metabolism , immune response and energy among multiple health benefits. Hypertriglyceridemia 302 570347 E78.1 She recently started fish oil- need to monitor lipid panel. Spent up to 28 minutes preparing to see the patient (eg, review of tests), obtaining and/or reviewing separately obtained history, performing a medically appropriat e examinatio n and evaluation , counseling and educating the patient, ordering medication s, tests, along with documentin g clinical informatio n in the electronic health record, analilia palacio interpreti ng results and communicat ing results to the patient. RTC in 4 months. Patient was provided a handwritte n lab order which contains our fax number. If she chooses to go outside of the [facility] system to obtain labwork she was [...] Recorded Advance Directives Directive None Recorded Payers Insurance Date Sequence Insurance Name Policy Number Policy Crawford Covered Member ID Crawford Member ID Guarantor Name 06/01/2023 1 [facility] [id number] Sammi Carnes [id number] Sammi Carnes Notes Date Note Type Note [...] uIU/mlFT4 of 0.85 ng/dLTPO negFT3 of 2.8 [id number]/341/29/10 9a1c 5%serotonin low 31vit D 29.3 ng/mlB12/folate normal Valeria Lee MD [address] [facility] [facility] [address], [place], [address], [place] [facility] 02/01/2023 09:51:54 OBGyn Episode No OBEpisode recorded.
[2025-03-09 09:46] VITALS: BP 118/82; PULSE 76; RESP 18; TEMP 36.6; O2SAT 100
[2025-03-09] MEDS: LACTATED RINGERS 1,000 ML 150 ML IV CONT (10:01)
--- NOTE | 2025-03-09 10:13 | WPDANESEPPF ---
Anes - Initial Pre Proc Eval Procedure: Operation Date: 03/09/25 11:15 Proposed Procedures p Esophagogastroduodenoscopy - Jaquan Wu MD Date/Time: 03/09/25 10:13 Surgeon: Jaquan Wu MD Pre Op Diagnosis: Other specified symptoms and signs involving the c Patient Data Age: 39 Gender: F Height: 1.6 m Weight: 80 kg Last Vital Signs Temp 98 F 03/09/25 09:46 Pulse 76 03/09/25 09:46 Resp 18 03/09/25 09:46 BP 118/82 03/09/25 09:46 Pulse Ox 100 03/09/25 09:46 O2 Del Method Room Air 03/09/25 09:46 Allergies Allergy/AdvReac Type Severity Reaction Status Date / Time No Known Allergies Allergy Verified 03/09/25 09:45 Home Medications ?Medication ?Instructions ?Recorded ?Confirmed ?Type omega 2-pjb-zon-fish oil 1,000 mg 1 cap PO BID 12/31/23 03/09/25 History (120 mg-180 mg) capsule (Fish Oil) levothyroxine 125 mcg tablet 125 mcg PO DAILY 09/01/24 03/09/25 History (Synthroid) albuterol sulfate 90 mcg/actuation 2 inh inhalation Q4H PRN shortness 10/01/24 02/24/25 Rx aerosol inhaler of breath or wheezing #8.5 grams spironolactone 100 mg tablet 100 mg PO DAILY #90 tabs 11/30/24 03/09/25 Rx escitalopram oxalate 10 mg tablet 5 mg PO DAILY 01/22/25 03/09/25 History (Lexapro) topiramate 25 mg tablet (Topamax) 25 mg PO DAILY #90 tabs 01/22/25 03/09/25 Rx omeprazole 40 mg capsule,delayed 40 mg PO DAILY #30 caps 02/17/25 03/09/25 Rx release ondansetron 4 mg disintegrating 4 mg PO Q8H PRN nausea and 02/17/25 02/24/25 Rx tablet vomiting #20 tabs fluticasone propionate 50 1 spray intranasal Q12H PRN 02/24/25 03/09/25 History mcg/actuation nasal allergy symptoms spray,suspension (Flonase Allergy Relief) lorazepam 0.5 mg tablet 0.5 mg PO DAILY PRN anxiety #30 03/02/25 03/09/25 Rx tabs Patient hx anesthesia problems: none Family hx anesthesia problems: none Results Review: All pre-operative results and documents have been reviewed as part of the pre-operative evaluation. 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 ear Vitamin D deficiency, unspecified Diastolic dysfunction Anxiety PCOS (polycystic ovarian syndrome) Irregular menses Hypothyroidism Hypersomnia Family history of early CAD Dyslipidemia IBS (irritable bowel syndrome) Encounter for IUD removal 09/25/12 Encounter for IUD insertion 11/16/10 Abnormal Pap smear of cervix 2010 ASCUS -HPV GERD (gastroesophageal reflux disease) Kidney stones Brachial neuritis ERMA (obstructive sleep apnea) Headache, migraine Surgical History Surgical History History of laparoscopy 03/04/19 dx lscope--enterolysis History of hysteroscopy 03/04/19 hscope d&c--pelvic pain, menometrorrhagia, dysmenorrhea Hx laparoscopic cholecystectomy Family History Family History Father Family history of elevated blood lipids Family history of lung cancer Heart disease Hemophilia Mother Family history of elevated blood lipids Breast cancer Grandparent Diabetes mellitus Heart disease Son Hemophilia Sibling Cheri's thyroiditis sister Other Asthma Family history of Alzheimer's disease Family history of blood dyscrasia Family history of cardiovascular disease Family history of hepatitis Family history of mental disorder Social History Social History Social History: 06/15/24 very confident with medical forms 12/16/24 declined SDOH Smoking status: Never smoker Alcohol intake: never Substance use: never Substance use type: does not use Do You Feel Safe in your Home?: Yes Lack of Transportation: No Lack of Food: Never True Current Housing: I Have Housing Concerned About Future Housing: No Difficulty Paying Gas/Electric Bills: No Difficulty Paying for Meds: No Currently Unemployed: No Education: Associate Degree Difficulty w/ Childcare or Family Care: No Living arrangements: with family Additional living arrangements comments: spouse Occupation/Education: occupation 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 [employer] Gender identity (if verbalized by the patient): Female Sexual Orientation (if Verbalized by the Patient): Straight or Heterosexual Anes - Eval Final PreProcedure Day of Procedure 03/09/25 10:13 Patient weight: obese Lungs: normal air movement Airway: Mallampati scale class II Neurological: alert and oriented Last oral intake: >/= 8 hours ASA classification: II Emergent: no Anesthetic plan: proceed Anesthesia type and monitoring: general GIVS and standard monitoring Results Review: All pre-operative results and documents have been reviewed as part of the pre-operative evaluation. Hypothyroidism, ERMA no cpap. Pt w dysphagia. Informed Consent: The patient's anesthetic plan and its attendant risks and benefits were discussed with the patient/family/POA. Questions were solicited and answers provided to the satisfaction of the patient/family/POA.
--- NOTE | 2025-03-09 10:29 | WPDHPUPDATE1 ---
History and Physical Update Update Date/Time: 03/09/25 10:29 History and Physical has been reviewed, including an updated exam of the patient. There are NO changes in the patient's condition. Risks, benefits, and alternatives have been discussed and questions answered. Patient agrees to proceed with procedure.
[2025-03-09] MEDS: BENZOCAINE (*SP) 60 ML SPRAY CAN (HURRICAINE) 1 SPRAY MUCOUS MEM (10:30)
--- NOTE | 2025-03-09 10:34 | S_PTH ---
PATIENT: Sammi Carnes LOC: [facility]#:[id number] AGE/SX: 39/F ROOM: RE03/09/[address]: Jaquan Wu MD : 1985 BED: DIS: 03/09/2025 SPEC #: [id number] RECD: 03/09/25 13:18 STATUS: JESI RONQUILLO #: [id number] MAHSA: 03/09/25 10:[address]: Jaquan Wu DEPT: [facility] Surgical RECD BY: Noemy Jain ENTERED: 03/09/25 13:19 SP TYPE: Surgical OTHR DR: Flor Rodriguez PA-C Tissues: A - Small Bowel Bx B - Gastric Biopsy C - Esophageal Biopsy Procedures: Hematoxylin and Eosin Stain Gross and Microscopic Level 4
[2025-03-09 10:38] VITALS: BP 119/79; PULSE 78; RESP 28; O2SAT 98
[2025-03-09 10:48] VITALS: BP 120/77; PULSE 73; RESP 16; O2SAT 98
[2025-03-09 10:58] VITALS: BP 124/91; PULSE 64; RESP 14; O2SAT 98
== END 2025-03-09 11:10 | disposition home or self-care (01) ==
PROVIDERS: PCP Physician Assistant Medical; Referring Provider Nurse Practitioner; Visit Provider Internal Medicine Gastroenterology
PROC: 0DJ08ZZ Inspection of Upper Intestinal Tract, Via Natural or Artificial Opening Endoscopic (ICD-10-PCS; CPT 43239; principal; 2025-03-09 11:15)
DX: K21.9 Gastro-esophageal reflux disease without esophagitis (principal); E03.9 Hypothyroidism, unspecified; E78.5 Hyperlipidemia, unspecified; E28.2 Polycystic ovarian syndrome; I11.0 Hypertensive heart disease with heart failure; I50.30 Unspecified diastolic (congestive) heart failure; G47.33 Obstructive sleep apnea (adult) (pediatric); G47.10 Hypersomnia, unspecified; R32 Unspecified urinary incontinence; E55.9 Vitamin D deficiency, unspecified; K58.9 Irritable bowel syndrome, unspecified; F41.8 Other specified anxiety disorders; F41.9 Anxiety disorder, unspecified; E66.9 Obesity, unspecified; Z68.31 Body mass index [BMI] 31.0-31.9, adult; Z79.51 Long term (current) use of inhaled steroids; Z98.890 Other specified postprocedural states; Z90.49 Acquired absence of other specified parts of digestive tract; Z87.442 Personal history of urinary calculi; Z80.3 Family history of malignant neoplasm of breast; Z80.1 Family history of malignant neoplasm of trachea, bronchus and lung; Z82.49 Family history of ischemic heart disease and other diseases of the circulatory system
CPT/HCPCS: 43239; 88305; J2003; J2704; J7120

== ENCOUNTER 2025-04-20 08:43 | Outpatient (CLI) | payer BC, SELFPAY ==
--- NOTE | ~2025-04-20 | US_ITS ---
US retroperitoneal comp 04/20/2025 09:08 Procedure: Realtime transabdominal ultrasound of the kidneys and bladder. Indication: Abdominal pain Comparison: Ultrasound dated 05/14/2023 Findings: Renal echotexture is normal bilaterally without contour deforming mass or renal calculus. There is moderate right hydronephrosis. There is mild left hydronephrosis. The right kidney measures 11.2 cm and left kidney measures 10.2 cm. Bladder within normal limits. Impression: 1: Bilateral hydronephrosis, right greater than left. Reviewed, dictated and finalized at location O. Impression: 1: Bilateral hydronephrosis, right greater than left.
== END 2025-04-20 08:44 | disposition home or self-care (01) ==
PROVIDERS: PCP Physician Assistant Medical; Visit Provider Physician Assistant
DX: N13.30 Unspecified hydronephrosis (principal)
CPT/HCPCS: 76770

== ENCOUNTER 2025-05-28 13:52 | Outpatient (CLI) | payer BC, SELFPAY ==
--- OUTSIDE RECORDS SUMMARY | 2025-02-23 03:00 | XMS_ITS ---
Author Organization [facility] Address [address] [place] [address] Care Team Providers Care Straight Edger Name Role Phone Valeria Lee [phone] REASON FOR VISIT lab f/u (text link) Encounters Encounter Location Date Provider Diagnosis [facility] Lee [address] [place] [address] 02/23/2025 Valeria Lee Plan Of Treatment No Information Progress Notes * Sammi LUNADOB:[birth year] (40 yo F)Acc No.[id number]:02/23/2025 Progress Note Patient: Gardenia marinaroderickSammi Provider: Lupe Lee MD :1985 A ge:39 Y S ex:Female Date:02/23/2025 Address:[address], [facility] Subjective: * Chief Complaints: * L ab f/u (text link) * Electronic signature of Charanjit Lee MD on 05/28/2025 at 01:56 PM CDT Sign off status: Pending * Provider: Lupe Lee MD Date: 0 02/23/2025 Generated for Yousufi ng/Lauren/eTransmitting on: 1 01:56 PM CDT
--- NOTE | ~2025-05-28 | NM_ITS ---
EXAMINATION: TYREL roe renal scan DATE: 05/28/2025 14:50 INDICATION: Hydronephrosis TECHNIQUE: 7 mCi Tc-99m MAG3 was administered IV. 40 mg furosemide was administered IV 10 minutes afterward. The patient was scanned in the supine position. A posterior abdominal radionuclide angiogram was obtained. A subsequent time course of static images of the kidneys, ureters, and bladder was obtained. COMPARISON: None FINDINGS: The posterior abdominal radionuclide angiogram and sequential static images show normal size, position, and morphology of the kidneys. Peak renal parenchymal uptake was 6.5 min in left kidney and 8.5 min in right kidney (normal peak 3-5 minutes). The relative early renal uptake was 52% on the left and 48% on the right (<40% is abnormal). The lateral hydronephrosis with mildly prominent left renal pelvis and larger right extrarenal pelvis. T1/2 for clearance of activity from the left kidney and proximal collecting system was 6 minutes. T1/2 for clearance of activity from the right kidney and proximal collecting system was 7 minutes. Notes on interpretation: T1/2 <10 minutes is normal, 10-15 minutes is low grade obstruction of questionable clinical significance, 15-20 minutes is partial obstruction that is likely clinically significant, >20 minutes is high grade obstruction. Note that false positives may be seen with supine positioning, dehydration, severely dilated nonobstructed kidney, atonic collecting system, poor renal function, and chronic furosemide use. IMPRESSION: 1. Symmetric kidney function. 2. No delay in contrast clearance from either kidney to suggest fixed obstruction. 3. Delayed time to peak in both kidneys which appears to result from accumulation of activity within the mildly dilated left renal pelvis and more prominently dilated right extrarenal pelvis. Reviewed, dictated and finalized at location A. IMPRESSION: 1. Symmetric kidney function. 2. No delay in contrast clearance from either kidney to suggest fixed obstruct ion. 3. Delayed time to peak in both kidneys which appears to result from accumulati on of activity within the mildly dilated left renal pelvis and more prominently dilated right extrarenal pelvis.
--- OUTSIDE RECORDS SUMMARY | 2025-05-28 13:56 | XMS_ITS | Patient Health Record ---
Author Organization 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 COPY(IES) SENT TO: Reviewed date:12/28/2024 09:45:34 AM Interpretation: Performing Lab: Notes/Report: FASTING:NO FASTING: NO COPY(IES) SENT TO: [facility] [address] [facility] [address] [place] [address] [facility] .COMPREHENSIVE METABOLIC HUSTON ([id number]) [facility] Reviewed date:05/06/2025 05:53:36 PM Interpretation: Performing Lab:KS, [facility]-Najmds73749 Sergei [facility], BadwsoZV[address] Ana Villeda MD Notes/Report: FASTING:YES FASTING: YES GLUCOSE 84 65-99 mg/dL N Fasting reference interval UREA NITROGEN (BUN) 9 7-25 mg/dL N CREATININE 0.81 0.50-0.97 mg/dL N EGFR 95 > OR = 60 mL/min/1.73m2 N BUN/CREATININE RATIO SEE NOTE: 6-22 (calc) Not Reported: BUN and Creatinine are within reference range. SODIUM 139 135-146 mmol/L N POTASSIUM 4.1 3.5-5.3 mmol/L N CHLORIDE 105 98-110 mmol/L N CARBON DIOXIDE 28 20-32 mmol/L N CALCIUM 9.4 8.6-10.2 mg/dL N PROTEIN, TOTAL 7.2 6.1-8.1 g/dL N ALBUMIN 4.2 3.6-5.1 g/dL N GLOBULIN 3.0 1.9-3.7 g/dL (calc) N ALBUMIN/GLOBULIN RATIO 1.4 1.0-2.5 (calc) N BILIRUBIN, TOTAL 0.5 0.2-1.2 mg/dL N ALKALINE PHOSPHATASE 79 31-125 U/L N AST 27 10-30 U/L N ALT 43 6-29 U/L H .LIPID PANEL, STANDARD (7600 ) Reviewed date:05/06/2025 05:53:36 PM Interpretation: Performing Lab:DEEPA [employer]-Ajoirt10650 Sergei [facility], OpxmssDC[address] Ana Villeda MD Notes/Report: FASTING:YES FASTING: YES CHOLESTEROL, TOTAL 169 <200 mg/dL N HDL CHOLESTEROL 32 > OR = 50 mg/dL L TRIGLYCERIDES 280 <150 mg/dL H repeat triglyceride testing on a fasting specimen if clinically indicated. If a non-fasting specimen was collected, consider Jackson et al. J. of Clin. Lipidol. 2015;9:129-169. LDL-CHOLESTEROL 97 N better accuracy than the Friedewald equation in the (http://[employer].Harvest/faq/IWV958) with > or = 2 CHD risk factors. <70 mg/dL for patients with CHD or diabetic patients LDL-C is now calculated using the Papi-Sulphur Desirable range <100 mg/dL for primary prevention; Papi HERNANDEZ et al. RUBÉN. 2013;310(19): 0619-9101 calculation, which is a validated novel method providing estimation of LDL-C. Reference range: <100 CHOL/HDLC RATIO 5.3 <5.0 (calc) H NON HDL CHOLESTEROL 137 <130 mg/dL (calc) H (LDL-C of <70 mg/dL) is considered a therapeutic factor, treating to a non-HDL-C goal of <100 mg/dL For patients with diabetes plus 1 major ASCVD risk option. .CBC (INCLUDES DIFF/PLT) (63 99) Reviewed date:05/06/2025 05:53:36 PM Interpretation: Performing Lab:[place]livia ARENAS-Amtgbb23280 Sergei Kaur, LnfmrtTK[address] Ana Villeda MD Notes/Report: FASTING:YES FASTING: YES WHITE BLOOD CELL COUNT 7.9 3.8-10.8 Thousand/uL N RED BLOOD CELL COUNT 5.27 3.80-5.10 Million/uL H HEMOGLOBIN 14.8 11.7-15.5 g/dL N HEMATOCRIT 46.6 35.0-45.0 % H MCV 88.4 80.0-100.0 fL N MCH 28.1 27.0-33.0 pg N MCHC 31.8 32.0-36.0 g/dL L For adults, a slight decrease in the calculated MCHC interpreted with caution in correlation with other not clinically significant; however, it should be condition. value (in the range of 30 to 32 g/dL) is most likely red cell parameters and the patient's clinical RDW 12.9 11.0-15.0 % N PLATELET COUNT 260 140-400 Thousand/uL N MPV 10.3 7.5-12.5 fL N ABSOLUTE NEUTROPHILS 4313 0203-5758 cells/uL N ABSOLUTE LYMPHOCYTES 2797 850-3900 cells/uL N ABSOLUTE MONOCYTES 608 200-950 cells/uL N ABSOLUTE EOSINOPHILS 103 15-500 cells/uL N ABSOLUTE BASOPHILS 79 0-200 cells/uL N NEUTROPHILS 54.6 N LYMPHOCYTES 35.4 N MONOCYTES 7.7 N EOSINOPHILS 1.3 N BASOPHILS 1.0 N .HEMOGLOBIN A1c (496) Reviewed date:05/06/2025 05:53:36 PM Interpretation: Performing Lab:[place] ARENAS-Cfukwv53885 Sergei Kaur, DulvjgBJ[address] Ana Villeda MD Notes/Report: FASTING:YES FASTING: YES HEMOGLOBIN A1c 5.1 <5.7 % N This assay result is consistent with a decreased risk control in non- diabetic patients. Different Currently, no consensus exists regarding use of According to [place] Diabetes [employer] (ADA) hemoglobin A1c for diagnosis of diabetes in children. For the purpose of screening for the presence of metrics may apply to specific patient populations. <5.7% Consistent with the absence of diabetes > or =6.5% Consistent with diabetes guidelines, hemoglobin A1c <7.0% represents optimal Standards of Medical Care in Diabetes(ADA). of diabetes. 5.7-6.4% Consistent with increased risk for diabetes (prediabetes) diabetes: ESTRADIOL (4021) Reviewed date:05/06/2025 05:53:36 PM Interpretation: Performing Lab:[facility] [employer]-Thsvhu17089 Sergei Kaur, WpbpipDD[address] Ana Villeda MD Notes/Report: FASTING:YES FASTING: YES ESTRADIOL 67 N elevated estradiol test results leading to an whom low Estradiol levels are anticipated (e.g. males, Please note: patients being treated with the drug Follicular Phase: 19-144 Estradiol, Ultrasensitive, LCMSMS assay is recommended reactivity with fulvestrant. females), the [employer] [facility] Postmenopausal: < or = 31 established using this assay. For any patients for population. No pre-pubertal reference range Reference Range fulvestrant (Faslodex(R)) have demonstrated significant Ultrasensitive LC/MS/MS demonstrates negligible cross Mid-Cycle: 64-357 (order code 41757). [employer] order code [id number]-Ypcgwaifp, measurement. The cross reactivity could lead to falsely inappropriate clinical assessment of estrogen status. interference in immunoassay methods for estradiol Reference range established on post-pubertal patient pre-pubertal children and hypogonadal/post-menopausa l Luteal Phase: 56-214 INSULIN (561) Reviewed date:05/06/2025 05:53:36 PM Interpretation: Performing Lab:[facility] [employer]-Dkiues14547 Sergei Kaur, WvotupTG[address] Ana Villeda MD Notes/Report: FASTING:YES FASTING: YES INSULIN 23.8 H Adult cardiovascular event risk category studies performed at [employer] in 2021. Risk: High >18.4 cut points (optimal, moderate, high) are based on Insulin Reference Interval Optimal < or = 18.4 Reference Range < or = 18.4 Moderate NA PROGESTERONE (745) Reviewed date:05/06/2025 05:53:36 PM Interpretation: Performing Lab:[facility] [employer]-Gfshis83420 Sergei Kaur, WeopdyHY[address] Ana Villeda MD Notes/Report: FASTING:YES FASTING: YES PROGESTERONE <0.5 N Follicular Phase < 1.0 3rd Trimester 52.0-302.0 1st Trimester 4.1-34.0 Reference Ranges Luteal Phase 2.6-21.5 Female Post menopausal < 0.5 2nd Trimester 24.0-76.0 VITAMIN B12/FOLATE, SERUM PA CARTER (7032) Reviewed date:05/06/2025 05:53:36 PM Interpretation: Performing Lab:[facility]ia ARENAS LenexaKS[address] Ana Villeda MD Notes/Report: FASTING:YES FASTING: YES VITAMIN B12 326 056-9928 pg/mL N FOLATE, SERUM 15.0 N Reference Range Normal: >5.4 Borderline: 3.4-5.4 Low: <3.4 FSH (470) Reviewed date:05/06/2025 05:53:36 PM Interpretation: Performing Lab:[facility]livia ARENAS LenexaKS[address] Ana Villeda MD Notes/Report: FASTING:YES FASTING: YES FSH 8.0 N Postmenopausal 23.0-116.3 Reference Range Follicular Phase 2.5-10.2 Luteal Phase 1.5- 9.1 Mid-cycle Peak 3.1-17.7 LH (615) Reviewed date:05/06/2025 05:53:36 PM Interpretation: Performing Lab:[facility]livia ARENAS Len[place]aKS[address] Ana Villeda MD Notes/Report: FASTING:YES FASTING: YES LH 7.7 N Postmenopausal 10.0-54.7 Follicular Phase 1.9-12.5 Reference Range Luteal Phase 0.5-16.9 Mid-Cycle Peak 8.7-76.3 T4, FREE (866) Reviewed date:05/06/2025 05:53:36 PM Interpretation: Performing Lab:[place]liv[facility] ARENAS Len[place]aKS[address] Ana Villeda MD Notes/Report: FASTING:YES FASTING: YES T4, FREE 1.3 0.8-1.8 ng/dL N TSH (899) Reviewed date:05/06/2025 05:53:36 PM Interpretation: Performing Lab:Olivia ARENASvd, NphuqvUJ[address] Ana Villeda MD Notes/Report: FASTING:YES FASTING: YES TSH 0.17 L Second trimester 0.55-2.73 > or = 20 Years 0.40-4.50 First trimester 0.26-2.66 Third trimester 0.43-2.91 Reference Range Ranges T3, FREE (68199) Reviewed date:05/06/2025 05:53:36 PM Interpretation: Performing Lab:[facility] [employer]-Rdmrmz08009 Sergei Kaur, FkonxkIF[address] Ana Villeda MD Notes/Report: FASTING:YES FASTING: YES T3, FREE 2.9 2.3-4.2 pg/mL N .VITAMIN D,25-OH,TOTAL,IA (1 7327) Reviewed date:05/06/2025 05:53:36 PM Interpretation: Performing Lab:[facility] ARENAS ip.access-Odzjyv84768 Sergei Kaur, GckdlbVT[address] Ana Villeda MD Notes/Report: FASTING:YES FASTING: YES VITAMIN D,25-OH,TOTAL,IA 39 30-100 ng/mL N 25-OH VIT D, (D2,D3), LC/MS/MS is recommended: order For 25-OH Vitamin D testing on patients on D2-supplementation and patients for whom quantitation educational purposes only.) Note 1 For additional information, please refer to (This link is being provided for informational/ See Note 1 Insufficiency: 20 - 29 ng/mL http://education.[employer]ient [employer] Systems/faq/EVK648 Deficiency: <20 ng/mL Optimal: > or = 30 ng/mL code 27507 (patients >2yrs). Vitamin D Status 25-OH Vitamin D: of D2 and D3 fractions is required, the QuestAssureD(TM) TESTOSTERONE, FREE (DIALYSIS ) AND TOTAL,MS (40683) Reviewed date:05/08/2025 03:05:40 PM Interpretation: Performing Lab:Z3E, [facility]-JvbOzwtge[address] [address], [address], GhaagpaxmqMN[address] Evette Talamantes MD,PhD Notes/Report: FASTING:YES FASTING: YES TESTOSTERONE, TOTAL, MS 46 2-45 ng/dL H not been cleared or approved by the FDA. This assay has been validated pursuant to the CLIA regulations and is https://education.[employer]/faq/IXY516 For additional information, please refer to used for clinical purposes. (Note) characteristics have been determined by [employer]. It has This test was developed and its analytical performance (This link is being provided for informational/educational purposes only.) TESTOSTERONE, FREE 6.9 0.1-6.4 pg/mL H been validated pursuant to the CLIA regulations and is [facility] [address] MDF [address] [address],[address] This test was developed and its analytical performance (Note) Evette Talamantes MD, PhD not been cleared or approved by the FDA. This assay has used for clinical purposes. characteristics have been determined by [employer]. It has [phone] [facility] ACTH, PLASMA (211) Reviewed date:12/28/2024 09:45:53 AM Interpretation: Performing Lab:Olivia VOGT/Juan Alberto Buck [id number] [facility] , OnjbvwppqHB[address] Milton Esquivel M.D.,PhD Notes/Report: FASTING:NO FASTING: NO ACTH, PLASMA 37 6-50 pg/mL Reference range applies only to specimens collected between 7am-10am. .VITAMIN D,25-OH,TOTAL,IA (1 7359) Reviewed date:12/23/2024 09:31:27 AM Interpretation: Performing Lab:[facility] ARENAS-Ddumcc41374 Sergei Kaur, JbmgwjKF[address] Ana Villeda MD Notes/Report: FASTING:NO FASTING: NO VITAMIN D,25-OH,TOTAL,IA 29 30-100 ng/mL L of D2 and D3 fractions is required, the QuestAssureD(TM) Note 1 See Note 1 Deficiency: <20 ng/mL Insufficiency: 20 - 29 ng/mL For additional information, please refer to http://education.[employer]/faq/PTV023 25-OH VIT D, (D2,D3), LC/MS/MS is recommended: order code 46552 (patients >2yrs). educational purposes only.) (This link is being provided for informational/ For 25-OH Vitamin D testing on patients on D2-supplementation and patients for whom quantitation Optimal: > or = 30 ng/mL Vitamin D Status 25-OH Vitamin D: T3, FREE (13158) Reviewed date:12/23/2024 09:31:34 AM Interpretation: Performing Lab:[facility]livia ARENAS-Jerome Briones[address] Ana Villeda MD Notes/Report: FASTING:NO FASTING: NO T3, FREE 2.8 2.3-4.2 pg/mL N TSH (899) Reviewed date:12/23/2024 09:32:00 AM Interpretation: Performing Lab:Olivia ARENAS Len[place]aKS[address] Ana Villeda MD Notes/Report: FASTING:NO FASTING: NO TSH 0.51 N Second trimester 0.55-2.73 Third trimester 0.43-2.91 > or = 20 Years 0.40-4.50 Ranges Reference Range First trimester 0.26-2.66 T4, FREE (866) Reviewed date:12/23/2024 09:39:59 AM Interpretation: Performing Lab:[facility]livia ARENAS Len[place]aKS[address] Ana Villeda MD Notes/Report: FASTING:NO FASTING: NO T4, FREE 1.1 0.8-1.8 ng/dL N FERRITIN (457) Reviewed date:12/23/2024 09:40:05 AM Interpretation: Performing Lab:[facility] ARENAS [place]aKS[address] Ana Villeda MD Notes/Report: FASTING:NO FASTING: NO FERRITIN 42 16-154 ng/mL N VITAMIN B12/FOLATE, SERUM PA CARTER (8650) Reviewed date:12/23/2024 09:31:40 AM Interpretation: Performing Lab:[facility]livia ARENAS Len[place]aKS[address] Ana Villeda MD Notes/Report: FASTING:NO FASTING: NO VITAMIN B12 583 712-7058 pg/mL N FOLATE, SERUM 13.0 N Low: <3.4 Normal: >5.4 Reference Range Borderline: 3.4-5.4 DHEA SULFATE (402) Reviewed date:12/23/2024 09:40:10 AM Interpretation: Performing Lab:[facility] ARENAS-Apmnxq07369 Wang AparicioGfslgtHA[address] Ana Villeda MD Notes/Report: FASTING:NO FASTING: NO DHEA SULFATE 178 19-237 mcg/dL N .HEMOGLOBIN A1c (496) Reviewed date:01/10/2025 02:25:53 PM Interpretation: Performing Lab:Olivia ARENASa10101 Wang AparicioHcihraIG[address] Ana Villeda MD Notes/Report: FASTING:NO FASTING: NO HEMOGLOBIN A1c 5.3 <5.7 % N guidelines, hemoglobin A1c <7.0% represents optimal <5.7% Consistent with the absence of diabetes 5.7-6.4% Consistent with increased risk for diabetes of diabetes. Currently, no consensus exists regarding use of (prediabetes) > or =6.5% Consistent with diabetes Standards of Medical Care in Diabetes(ADA). metrics may apply to specific patient populations. hemoglobin A1c for diagnosis of diabetes in children. For the purpose of screening for the presence of diabetes: According to [place] [employer] (ADA) control in non- diabetic patients. Different This assay result is consistent with a decreased risk .CBC (INCLUDES DIFF/PLT) (63 99) Reviewed date:12/23/2024 09:40:38 AM Interpretation: Performing Lab:[facility] ARENAS-Ymoytq66808 Sergei Kaur AkisdaBS[address] Ana Villeda MD Notes/Report: FASTING:NO FASTING: NO WHITE BLOOD CELL COUNT 10.4 3.8-10.8 Thousand/uL N RED BLOOD CELL COUNT 4.89 3.80-5.10 Million/uL N HEMOGLOBIN 13.8 11.7-15.5 g/dL N HEMATOCRIT 42.8 35.0-45.0 % N MCV 87.5 80.0-100.0 fL N MCH 28.2 27.0-33.0 pg N MCHC 32.2 32.0-36.0 g/dL N value (in the range of 30 to 32 g/dL) is most likely not clinically significant; however, it should be For adults, a slight decrease in the calculated MCHC red cell parameters and the patient's clinical interpreted with caution in correlation with other condition. RDW 12.8 11.0-15.0 % N PLATELET COUNT 272 140-400 Thousand/uL N MPV 10.2 7.5-12.5 fL N ABSOLUTE NEUTROPHILS 5502 1627-3899 cells/uL N ABSOLUTE LYMPHOCYTES 3702 850-3900 cells/uL N ABSOLUTE MONOCYTES 946 200-950 cells/uL N ABSOLUTE EOSINOPHILS 156 15-500 cells/uL N ABSOLUTE BASOPHILS 94 0-200 cells/uL N NEUTROPHILS 52.9 N LYMPHOCYTES 35.6 N MONOCYTES 9.1 N EOSINOPHILS 1.5 N BASOPHILS 0.9 N .LIPID PANEL, STANDARD (7600 ) Reviewed date:12/23/2024 09:41:01 AM Interpretation: Performing Lab:[facility]E[place] [employer]-Kwvuqg52582 Sergei Otero, PpxavtZU[address] Ana Villeda MD Notes/Report: FASTING:NO FASTING: NO CHOLESTEROL, TOTAL 190 <200 mg/dL N HDL CHOLESTEROL 35 > OR = 50 mg/dL L TRIGLYCERIDES 304 <150 mg/dL H repeat triglyceride testing on a fasting specimen Jackson et al. J. of Clin. Lipidol. 2015;9:129-169. if clinically indicated. If a non-fasting specimen was collected, consider LDL-CHOLESTEROL 114 H better accuracy than the Friedewald equation in the (http://[employer].Harvest/faq/PJP162) Reference range: <100 LDL-C is now calculated using the Papi-Fu <70 mg/dL for patients with CHD or diabetic patients Desirable range <100 mg/dL for primary prevention; estimation of LDL-C. Papi HERNANDEZ et al. RUBÉN. 2013;310(19): 6226-1074 with > or = 2 CHD risk factors. calculation, which is a validated novel method providing CHOL/HDLC RATIO 5.4 <5.0 (calc) H NON HDL CHOLESTEROL 155 <130 mg/dL (calc) H option. For patients with diabetes plus 1 major ASCVD risk (LDL-C of <70 mg/dL) is considered a therapeutic factor, treating to a non-HDL-C goal of <100 mg/dL IRON AND TOTAL IRON BINDING CAPACITY (7573) Reviewed date:12/23/2024 09:40:49 AM Interpretation: Performing Lab:[place] ARENAS-Pstkco03008Gabriela Kaur, FtizypAM[address] Ana Villeda MD Notes/Report: FASTING:NO FASTING: NO IRON, TOTAL 74 40-190 mcg/dL N IRON BINDING CAPACITY 329 250-450 mc g/dL (calc) N % SATURATION 22 16-45 % (calc) N MAGNESIUM (622) Reviewed date:12/23/2024 09:40:54 AM Interpretation: Performing Lab:Olivia ARENAS-Adlkmt14823Sade Kaur, TwlgrlXH[address] Ana Villeda MD Notes/Report: FASTING:NO FASTING: NO MAGNESIUM 2.0 1.5-2.5 mg/dL N .COMPREHENSIVE METABOLIC HUSTON EL (44560) [facility] Reviewed date:12/23/2024 09:40:44 AM Interpretation: Performing Lab:Olivia ARENASa1Jerome Christine[address] Ana Villeda MD Notes/Report: FASTING:NO FASTING: NO GLUCOSE 78 65-139 mg/dL N Non-fasting reference [...] U/L H ALT 52 6-29 U/L H Reason For Referral No Information Medications Medication SIG (Take, Route, Frequency, Duration) Notes Start Date End Date Status Lexapro *Pick strength-form from [employer] for eRX* Active Zepbound 2.5 MG/0.5ML Solution Auto-injector 0.5 mL Subcutaneous once a week; Duration: 30 days not covered by insurance 12/09/2024 Active Synthroid 100 MCG Tablet 1 tablet in the morning on an empty stomach Orally Once a day; Duration: 90 days 05/05/2025 Active Spironolactone 50 MG Tablet 1 tablet Orally Once a day; Duration: 30 days 05/13/2025 Not-Taking Social History Social History Additional Details Category Social Info Options Details Migrated Social History Migrated Social History (Alcohol:):no (Recreational drug use:):no (Smoking:):no Section Notes: caffeine: no Problems Problem Type SNOMED Code ICD Code Onset Dates Problem Status W/U Status Risk Notes Problem Hypothyroidism (33614451) Hypothyroidism, unspecified (E03.9) Active confirmed Problem Autoimmune thyroiditis (93385955) Autoimmune thyroiditis (E06.3) Active confirmed Problem 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 (E28.8) Active confirmed Problem Vitamin D deficiency (79059667) Vitamin D deficiency, unspecified (E55.9) Active confirmed Problem Obesity (959955486) Obesity, uns pecified (E66.9) Active confirmed Problem Obstructive sleep apnea syndrome (disorder) (96366442) Obstructive sleep apnea (adult) (pediatric) (G47.33) Active confirmed Problem Goiter (9115993) Goiter (E04.9) Active confirme d Problem Obstructive sleep apnea (61972728) Obstructive sleep apnea (G47.33) Active confirmed Problem Hypertriglyceridemia (417656957) Hypertriglyceridemia (E78.1) Active confirmed Problem Hyperandrogenism (828857915) Hyperandrogenism (E28.8) Active confirmed Vital Signs Heart Rate 72 /min 05/18/2025 Respiratory Rate 12 /min 05/18/2025 Height-cm 160.02 cm 05/18/2025 Blood pressure diastolic 72 mm Hg 05/18/2025 Weight-kg 83.01 kg 05/18/2025 Height 63 in 05/18/2025 Blood pressure systolic 112 mm Hg 05/18/2025 Weight 183 lbs 05/18/2025 BMI 32.41 kg/m2 05/18/2025 Encounters Encounter Location Date Provider Diagnosis [facility]MO Dr. Lee [address] [place] [phone] 07/30/2024 Valeria Lee Obesity, unspecified E66.9 ; Insulin resistance, unspecified E88.819 ; Autoimmune thyroiditis E06.3 ; Other fatigue R53.83 ; Vitamin D deficiency, unspecified E55.9 ; Dietary counseling and surveillance Z71.3 and Other ovarian dysfunction E28.[address] Lee [address] [place] [phone] 08/28/2024 Valeria Lee Autoimmune thyroidit is E06.3 ; Obesity, unspecified E66.9 ; Vitamin D deficiency, unspecified E55.9 ; Hypothyroidism, unspecified E03.9 and Obstructive sleep apnea (adult) (pediatric) G47.[address] Lee [address] [place] [phone] 11/20/2024 Valeria Lee Obesity, unspecified E66.9 ; Autoimmune thyroiditis E06.3 ; Vitamin D deficiency, unspecified E55.9 ; Hypothyroidism, unspecified E03.9 ; Obstructive sleep apnea G47.33 and Goiter E04.[address] Lee [address] [place] [phone] 01/08/2025 Valeria Lee Autoimmune thyroidit is E06.3 ; Hypothyroidism, unspecified E03.9 ; Vitamin D deficiency, unspecified E55.9 and Obesity, unspecified E66.[address] Lee [address] [place] [address] 04/20/2025 Valeria Lee Hypothyroidism, unsp ecified E03.9 and Obesity, unspecified E66.[address] Lee [address] [place] [address] 05/18/2025 Valeria Lee Autoimmune thyroidit is E06.3 ; Hypothyroidism, unspecified E03.9 ; Hyperandrogenism E28.8 and Hypertriglyceridemia E78.[address] [phone] 08/06/[address] Lee [address] [place] [phone] 08/17/2024 Valeria Lee AMMO [facility] [address] [place] [phone] 08/17/2024 Valeria Lee Hypothyroidism, unsp ecified E03.9 AMMO [facility] [address] [place] [phone] 08/17/2024 Valeria Lee Hypothyroidism, unsp ecified E03.[address] Lee [address] [place], [place] [phone] 09/02/2024 Valeria Lee Impaired fasting glu cose R73.01 AMMO [facility] [address] [place] [address] 09/04/2024 Valeria Lee AMMO [facility] [address] [place] [phone] 12/09/2024 Valeria Lee AMMO [facility] [address] [place] [phone] 12/10/2024 Valeria Lee AMMO [facility] [address] [place] [phone] 04/22/[address] Lee [address] [place] [phone] 12/09/2024 Valeria Lee [address] [place] [phone] 01/01/[address] Lee [address] [place] [phone] 04/29/2025 Valeria Lee Obesity, unspecified E66.[address] Lee [address] [place] [phone] 05/05/2025 Valeria Lee [address] [place] [phone] 05/12/2025 Valeria Lee Assessments Encounter Date Diagnosis (ICD Code) Assessment Notes Treatment Notes Treatment Clinical Notes Section Notes 07/30/2024 Obesity, unspecified (ICD-10 - E66.9) 07/30/2024 Insulin resistance, unspecified (ICD-10 - E88.819) 08/17/2024 Hypothyroidism, unspecified (ICD-10 - E03.9) 08/17/2024 Hypothyroidism, unspecified (ICD-10 - E03.9) 08/28/2024 Autoimmune thyroidit is (ICD-10 - E06.3) 08/28/2024 Obesity, unspecified (ICD-10 - E66.9) 09/02/2024 Impaired fasting glucose (ICD-10 - R73.01) 11/20/2024 Autoimmune thyroidit is (ICD-10 - E06.3) 11/20/2024 Obesity, unspecified (ICD-10 - E66.9) 01/08/2025 Autoimmune thyroidit is (ICD-10 - E06.3) 04/20/2025 Hypothyroidism, unspecified (ICD-10 - E03.9) 04/29/2025 Obesity, unspecified (ICD-10 - E66.9) 05/18/2025 Hypothyroidism, unspecified (ICD-10 - E03.9) 05/18/2025 Autoimmune thyroidit is (ICD-10 - E06.3) 01/08/2025 Hypothyroidism, unspecified (ICD-10 - E03.9) 05/18/2025 Hyperandrogenism (ICD-10 - E28.8) 04/20/2025 Obesity, unspecified (ICD-10 - E66.9) 11/20/2024 Vitamin D deficiency , unspecified (ICD-10 - E55.9) 08/28/2024 Vitamin D deficiency , unspecified (ICD-10 - E55.9) 07/30/2024 Autoimmune thyroidit is (ICD-10 - E06.3) 07/30/2024 Other fatigue (ICD-1 0 - R53.83) 08/28/2024 Hypothyroidism, unspecified (ICD-10 - E03.9) 11/20/2024 Hypothyroidism, unspecified (ICD-10 - E03.9) 01/08/2025 Vitamin D deficiency , unspecified (ICD-10 - E55.9) 05/18/2025 Hypertriglyceridemia (ICD-10 - E78.1) 01/08/2025 Obesity, unspecified (ICD-10 - E66.9) 07/30/2024 Vitamin D deficiency , unspecified (ICD-10 - E55.9) 11/20/2024 Obstructive sleep ap brittany (ICD-10 - G47.33) 08/28/2024 Obstructive sleep ap brittany (adult) (pediatric) (ICD-10 - G47.33) 07/30/2024 Dietary counseling a nd surveillance (ICD-10 - Z71.3) 11/20/2024 Goiter (ICD-10 - E04.9) 07/30/2024 Other ovarian dysfunction (ICD-10 - E28.8) [...] with intent to titrate- Send prescription to [facility] 3. Polycystic Ovary Syndrome (PCOS)- Offer compounding [...] procedures, referring and communicating with other health med care manager, documenting clinical information in the electronic or [...] procedures, referring and communicating with other health med care manager, documenting clinical information in the electronic or [...] with Sleep Apnea- Submit prior authorization for [employer], citing sleep apnea as the qualifying condition- Follow up on CPAP initiation with new insurance- Continue metformin 500 mg daily pending [employer] approval- Reassess treatment plan in 2-3 months [...] procedures, referring and communicating with other health med care manager, documenting clinical information in the electronic or [...] with Sleep Apnea- Submit prior authorization for [employer], citing sleep apnea as the qualifying condition- [...] 2-3 months 3. Vitamin D Deficiency- Recommend [id number] vitamin D supplementation, 2,000 to 4,000 IU [...] procedures, referring and communicating with other health med care manager, documenting clinical information in the electronic or [...] were discussed and all questions were answered. 04/20/2025 Lavon Chapa, a patient with a history of obesity, hypothyroidism, and PCOS, presents for follow-up on weight loss management and medication adjustment. ObesityAssessment: Patient reports significant weight loss progress, having lost approximately 25 pounds (from 210 lbs to 185 lbs) using Zepbound (tirzepatide). She initially started on half of the half dose due to side effects, including nausea and vomiting, which were partly attributed to overeating. The patient is currently on her last dose of the first box and plans to increase to the full dose after the next dose. She has demonstrated improved dietary habits, reporting reduced food intake and better hunger control.Plan:- Continue Zepbound (tirzepatide) as tolerated - Patient to increase to full dose after current dose- Monitor weight loss progress- Recommend spacing out doses to every 2-3 weeks if patient loses another 10-15 pounds and is satisfied with weight- Advised on portion control and substituting dark chocolate for sweet cravings- Consider low-dose maintenance regimen every 10 to 14 days after 3 months, depending on activity and diet- Explore cost-saving options for medication continuation- Recommended [facility] website for protein shakes and weight loss plans- Follow up in 3-4 months HypothyroidismAsse ssment: Patient reports doing well on current thyroid medication regimen. She obtains Synthroid through a direct program.Plan:- Continue current Synthroid regimen- Order thyroid function tests as part of upcoming lab work Diabetes Mellitus (suspected)Assessm ent: Patient has a history suggestive of insulin resistance, given the context of obesity, PCOS, and the use of Zepbound (tirzepatide), which is also indicated for type 2 diabetes management.Plan:- Order A1c and insulin levels as part of upcoming lab work Polycystic Ovary Syndrome (PCOS)Assessment: Patient has a known history of PCOS, which is being managed in conjunction with her weight loss efforts.Plan:- Continue current management approach- Recommended [facility] website resources for PCOS and insulin resistance Fatty Liver DiseaseAssessment: Patient reports a history of fatty liver disease. This condition may improve with continued weight loss.Plan:- Continue weight management efforts- Consider Wegovy (semaglutide) as a potential treatment option, pending insurance coverage and FDA indication approval for fatty liver disease Sleep ApneaAssessment: Patient reports a history of sleep apnea. No specific concerns mentioned during this visit.Plan:- Continue current management approach- Reassess as needed with weight loss progress Spent 25 minutes preparing to see the patient (ex review of tests/chart), obtaining and / or reviewing separately obtained history, performing a medically appropriate examination and/or evaluation, counseling and educating the patient/family/car egiver, ordering medications, tests, or procedures, referring and communicating with other health med care manager, documenting clinical information in the electronic or other health record, independently interpreting results and communicating results to the patient/family/car egiver and care coordinating patient plan. Patient alert and oriented x 4 and aware of discussion noted above and in agreeance to plan in management of hypothyroidism, obesity/weight management. Due to the nature [...] were discussed and all questions were answered. 05/18/2025 Lavon Chapa is a patient with a history of thyroid dysfunction, anxiety, and metabolic issues, presenting for follow-up on medication management and weight loss progress. HypothyroidismAsse ssment: Patient recently started Synthroid 100 mcg, which was a dose reduction. This adjustment was made to address symptoms of anxiety and palpitations, likely due to overtreatment. Patient reports new symptoms of head pressure and dizziness since starting the medication this week, which may be related to the dose change or potentially an unrelated ear issue.Plan:- Continue Synthroid 100 mcg daily- Monitor for improvement in anxiety and palpitations- Assess thyroid function at next follow-up Obesity with Insulin ResistanceAssessme nt: Patient has achieved significant weight loss, down 27 pounds from 210 to 183 lbs. Currently using Zepbound (tirzepatide) samples, which appears to be effective. A1c has improved to 5.1, but insulin levels still indicate insulin resistance. Insurance is not covering Zepbound, and no alternatives have been offered.Plan:- Continue Zepbound samples (4 weeks supply remaining)- Discontinue metformin- Consider options for continued GLP-1 agonist therapy after samples are depleted- Monitor weight and insulin resistance markers DyslipidemiaAssess ment: Patient reports consistently elevated triglycerides, which respond well to fish oil supplementation. Primary care provider has recommended starting pravastatin for cholesterol management, but this has not been initiated yet.Plan:- Start fish oil supplementation nightly- Defer initiation of pravastatin pending further evaluation- Reassess lipid panel at next follow-up Suspected HypercortisolismAs sessment: Cortisol axis dysfunction is suspected and may be contributing to metabolic issues, including elevated triglycerides. A dexamethasone suppression test has been ordered but not yet completed.Plan:- Patient to complete dexamethasone suppression test on a weekend- Review results at next visit to determine if further evaluation or treatment for hypercortisolism is needed AnxietyAssessment: Patient is currently managed on a low dose of Lexapro (5 mg). Previous use of metoprolol has been discontinued.Plan: - Continue Lexapro 5 mg daily Eustachian Tube DysfunctionAssessm ent: Patient reports symptoms of ear pressure and dizziness. A nurse practitioner has previously noted fluid in the ears. Current treatment with Flonase appears to be ineffective.Plan:- Consider referral to head and neck specialist for evaluation of ear fluid- Patient may try [id number] Zyrtec for symptom relief- Discuss possibility of compounded otic drops with antihistamines at next visit if symptoms persist Polycystic Ovary Syndrome (PCOS)Assessment: Patient has a history of PCOS, previously treated with spironolactone and norethindrone. Spironolactone 50 mg daily has been prescribed but not yet initiated due to pending renal CT.Plan:- Defer initiation of spironolactone 50 mg daily until after renal CT is completed- Follow up on renal CT results- Reassess need for hormonal management at next visit Spent 25 minutes preparing to see the patient (ex review of tests/chart), obtaining and / or reviewing separately obtained history, performing a medically appropriate examination and/or evaluation, counseling and educating the patient/family/car egiver, ordering medications, tests, or procedures, referring and communicating with other health med care manager, documenting clinical information in the electronic or other health record, independently interpreting results and communicating results to the patient/family/car egiver and care coordinating patient plan. Patient alert and oriented x 4 and aware of discussion noted above and in agreeance to plan in management of hypothyroidism, weight management, PCOS, ear changes/advised patient to visit with ENT if drops and antihistamines do not help. Due to the nature of telemedicine, the [...] Treatment Pending Test Test Name Order Date * HEAD AND NECK/THYROID [id number] 11/21/19 25 Insurance Providers Payer Name Payer Address Payer Phone Subscriber Number Group Number Insured Name Patient Relationship to Insured Coverage Start Date Coverage End Date TYLER PHELPS [id number] [place] [phone] [id number] Sammi Carnes Self - patient is the insured Medical (General) History Medical History History ICD Code thyroid issues PCOS
--- OUTSIDE RECORDS SUMMARY | 2025-05-28 13:56 | XMS_ITS | Data Portability ---
Author Organization [facility] [place] Address [address] [place] [address] Assessment Encounter Date Assessment Date Assessment LastModified by Organization Details LastModified Time 05/26/2025 05/26/2025 Greater than 45 minutes was spent in total between discussion with the patient, examination, and coordination of care. Not available 05/26/2025 14:22:33 Plan of Treatment Reminders Order Date Submit Date Provider Last Modified By Organization Details Last Modified Time Details Appointments U/S DIRECTOR OF FIELD SERVICE COMPLET E 2024 09:30A M ULTRASOUND Not available Not available Not available Lab None recorde d. Referral None recorde d. Procedures None recorde d. Surgeries None recorde d. Imaging MRI, breast, bilater al, w/wo contras t 2024 10 025 [email or web address] [facility], [address] [place], [address], 05/26/2025 14:31:37 Medication Orders None recorde d. Patient TargetsNo targets recorded. Patient InstructionsNo instructions recorded. Reason for Referral None Reported. Procedures Surgical History Date Name Laterality Status Provider Name and Address Organization Details Recorded Time 02/12/20 25 Date of Last Pap Smear completed Dina Tomlin [facility] 05/26/2025 10:08:48 10/29/19 25 Date of Last Mammogram completed Dina Tomlin [facility] 05/26/2025 10:08:55 Cholecystectomy completed Dina Densonmargarita [facility] 05/26/2025 10:02:32 Imaging Results None recorded. Procedure Notes None recorded. Medical Equipment None Reported. Allergies No known drug allergies Medications Name Sig Start Date Stop Date Status Note LastModified by Organization Details LastModified Time prednisone 10 mg tablet TAKE 1 TABLET BY MOUTH DAILY active Not Available Not Available No t Available Synthroid 125 mcg tablet TAKE 1 TABLET BY MOUTH DAILY IN THE MORNING ON AN EMPTY STOMACH 05/26 completed Not Available Not Available Not Available Synthroid 100 mcg tablet active Not Available Not Available Not Available spironolact one 100 mg tablet TAKE 1 TABLET BY MOUTH DAILY 05/26 completed Not Available Not Available Not Available topiramate 25 mg tablet TAKE 1 TABLET BY MOUTH DAILY active Not Available Not Available No t Available omeprazole 40 mg capsule,del ayed release TAKE 1 CAPSULE BY MOUTH DAILY active Not Available Not Available No t Available amoxicillin 875 mg tablet TAKE 1 TABLET BY MOUTH EVERY 12 HOURS 05/26 completed Not Available Not Available Not Available lorazepam 0.5 mg tablet TAKE 1 TABLET BY MOUTH DAILY NEEDED FOR ANXIETY active Not Available Not Available No t Available dexamethaso ne 1 mg tablet TAKE 1 TABLET BY MOUTH AT 10PM THE NIGHT BEFORE 8AM CORTISOL 05/26 completed Not Available Not Available Not Available pravastatin 20 mg tablet TAKE 1 TABLET BY MOUTH EVERY DAY AT BEDTIME 05/26 completed Not Available Not Available Not Available metoprolol succinate ER 25 mg tablet,exte nded release 24 hr TAKE 1 TABLET BY MOUTH DAILY 05/26 completed Not Available Not Available Not Available albuterol sulfate HFA 90 mcg/actuati on aerosol inhaler INHALE 2 PUFFS EVERY 4 HOURS NEEDED FOR SHORTNESS OF BREATH / WHEEZING active Not Available Not Available No t Available norethindro ne (contracept albino) 0.35 mg tablet TAKE 1 TABLET BY MOUTH DAILY active Not Available Not Available No t Available ondansetron 4 mg disintegrat ing tablet DISSOLVE 1 TABLET ON THE TONGUE EVERY 8 HOURS NEEDED FOR NAUSEA OR VOMITING active Not Available Not Available No t Available cefdinir 300 mg capsule TAKE 1 CAPSULE BY MOUTH EVERY 12 HOURS 05/26 completed Not Available Not Available Not Available metformin ER 500 mg tablet,exte nded release 24 hr TAKE 1 TABLET BY MOUTH DAILY WITH THE EVENING MEAL 05/26 completed Not Available Not Available Not Available spironolact one 50 mg tablet TAKE 1 TABLET BY MOUTH DAILY active Not Available Not Available No t Available escitalopra m 10 mg tablet TAKE 1 AND 1/2 TABLETS BY MOUTH DAILY active Not Available Not Available No t Available nitrofurant oin monohydrate /macrocryst als 100 mg capsule TAKE 1 CAPSULE BY MOUTH EVERY 12 HOURS FOR 7 DAYS. TAKE WITH FOOD 05/26 completed Not Available Not Available Not Available Fish Oil active Not Available Not Avai lable Not Available Zepbound 2.5 mg/0.5 mL subcutaneou s solution active Not Available Not Available N ot Available Vitals Date Recorded Body weight Body mass index (BMI) Body height Systolic And Diastolic Provider Name and Address Organization Details Last Updated DateTime 05/26/2025 18271.59 g 32.8 kg/m2 160.02 cm 106/73 mm[Hg] Dina Tomlin [facility] 05/26/2025 10:01:19 Social History Question Answer Notes LastModified by Organizat ion Details LastModified Time Tobacco Smoking Status Never Smoker Dina Tomlin [facility] 05/26/2025 10:08:08 Do You Have An Advance Directive? No Information not available 05/26/2025 Are You Blind Or Do You Have Difficulty Seeing? Yes Glasses/c ontacts Information not available 05/26/2025 What Is Your Level Of Caffeine Consumption? Occasional [email or web address] Information not available 05/26/2025 In The 14 Days Before Symptom Onset, Have You Had Close Contact With A Laboratory-confir med COVID-19 While That Case Was Ill? No Information not available 05/26/2025 In The 14 Days Before Symptom Onset, Have You Had Close Contact With A Person Who Is Under Investigation For COVID-19 While That Person Was Ill? No Information not available 05/26/2025 Have You Been To An Area Known To Be High Risk For COVID-19? No [email or web address] Information not available 05/26/2025 Are You Deaf Or Do You Have Serious Difficulty Hearing? No Information not available 05/26/2025 What Type Of Diet Are You Following? REGULAR [email or web address] Information not available 05/26/2025 What Is The Highest Grade Or Level Of School You Have Completed Or The Highest Degree You Have Received? [id number] [email or web address] Information not available 05/26/2025 Are There Any Guns Present In Your Home? Yes [email or web address] Information not available 05/26/2025 Do You Use Protection During Sex? Always [email or web address] Information not available 05/26/2025 Are You Sexually Active? Yes [email or web address] Information not available 05/26/2025 Do You Have Smoke And Carbon Monoxide Detectors In Your Home? Yes Information not available 05/26/2025 How Much Tobacco Do You Smoke? No [email or web address] Information not available 05/26/2025 Do You Use Sunscreen Routinely? Yes [email or web address] Information not available 05/26/2025 Have You Used IV Drugs? No [email or web address] Information not available 05/26/2025 Do You Have Difficulty Walking Or Climbing Stairs? No [email or web address] Information not available 05/26/2025 Sex: Unknown Functional Status Question Answer Note LastModified by Organizat ion Details LastModified Time Do you use any illicit or recreational drugs? No [email or web address] Information not available 05/26/2025 What is your level of alcohol consumption? Occasional Information not available 05/26/2025 Are you currently employed? Yes [email or web address] Information not available 05/26/2025 Are you able to walk independently without assistance or assistive devices? YESWOREST [email or web address] Information not available 05/26/2025 Are you able to care for yourself independently? Yes [email or web address] Information not available 05/26/2025 Do you have difficulty dressing, bathing, grooming, or toileting? Yes Information not available 05/26/2025 What is your exercise level? Occasional Information not available 05/26/2025 Mental Status Question Answer Note LastModified by Organization D etails LastModified Time Do you feel stressed (tense, restless, nervous, or anxious, or unable to sleep at night)? [id number] [email or web address] Information not available 05/26/2025 Family History Relationship Description Onset Age of this Age Resolved Age Notes LastModified by Organization Details LastModified Time Father Malignant neoplasm of lung [email or web address] Not available 2024 10:01:57 Medical History Condition Response Anxiety Disorder Y Acid Reflux (GERD) Y Kidney or Bladder Problems Y Polycystic ovary syndrome Y Thyroid Problems Y Pre-Eclampsia Y Gynecological History Statement/Question Response Abnormal Pap N Date of Last Mammogram 10/28/2024 Flow Moderate Date of LMP 05/25/2025 On BCP's at Conception? N N Was last menstrual period normal Y STIs/STDs N HPV Vaccine N Duration of Flow (days) 6 Age at First Child 22 Are cycles usually normal Y Date of Last Colonoscopy Frequency of Cycle (Q days) 28 Sexually Active? Y Menses Monthly Y Age of first menstrual cycle 13 Date of Last Pap Smear 02/11/2025 Sexual Problems? N LMP Definite N Obstetrics History GPAL:G 3 P 3 0 0 3 Type Value Full Term 3 Living 3 Total 3 Past Encounters Encounter ID Performer Location Encounter Start Date Encounter Closed Date Diagnosis/Indication Diagnosis SNOMED-CT Code Diagnosis ICD10 Code Diagnosis IMO Codes Diagnosis Note [id number] MAGALY WORTHY MD [facility] [address] [address] 05/26/2025 09:50:24 05/26/2025 14:31:37 Family history of breast cancer 506782620 Z80.3 71557 - mother with hx of breast cancer at age 45- patient's Tyrer-Cuzi ck score 21.8%- recommend yearly mammograms and breast MRI for monitoring given high risk status and hx of fibrogland ular densities Genuine st ress incontinence N39.3 27099 - reports worsening stress incontinen ce, was told she has prolapse- feels slight bulge with wiping- no issues with constipati on- discussed prolapse/i ncontinenc e may warrant a referral to urogyn for discussion of surgical repair options Uterovaginal prolapse 18 104461 N81.4 08152 - see above problem Polycystic ovary syndrome [id number] E28.2 904934 - reports long hx of heavy and painful periods along with hyperandro gen symptoms, difficulty losing weight, mood swings, hot flashes, night sweats- these issues may be due to both PCOS and perimenopa use- discussed hormonal options including POPs, OCPs, Nextstelli s and HRT to mitigate these symptoms- patient would like to try Nextstelli s Menorrhagia [id number] N9 2.0 2941094 - patient reports heavy and painful periods- was previously told she had fibroids, has not had recent ultrasound - had previously discussed hysterecto my with prior OBGYN, had discussed possible need for open hysterecto my- will update pelvic US and then follow up to discuss possible surgical options and route of hysterecto my- would recommend keeping ovaries due to age; discussed that hysterecto my would only improve bleeding and not her hormonal symptoms Menopause finding 149495 006 N95.1 [id number] Health Concerns Section Related Observation LastModified by Organization Detai ls LastModified Time None Recorded Concern Status LastModified by Organization Details LastModified Time None Recorded Advance Directives Directive N: Payers Insurance Date Sequence Insurance Name Policy Number Policy Crawford Covered Member ID Crawford Member ID Guarantor Name 05/26/2025 1 [employer] [id number] Sammi Trice [id number] Sammi Carnes Notes Date Note Type Note Provider Name and Address Organization Details Recorded Time 05/26/2025 text/html ROS as noted in the HPI Patient presents to establish care. She has a history of PCOS. She has heavy and painful periods. She has had a laparoscopy to evaluate for endometriosis, which was negative. She has been told she has fibroids and a prolapsed uterus. She reports stress incontinence. She has tried control in the past but has intense nausea with both OCPs and POPs. She may be interested in hysterectomy. She also has hypothyroidism and follows with endocrinology Hx of breast cancer in her mother at age 45. She has been having yearly mammograms. Her Tyrer Cuzick score is 21.8%. She has not had breast MRIs. MAGALY WORTHY MD [address], [place], [address], [facility] 05/26/2025 14:22:44 OBGyn Episode Ob Episode Information Episode Created Date Number of Fetuses Patient Bloodtype Patient rh Status Prepregnancy Weight lbs Domestic Partner Domestic Partner Phone Father Name Piano Mechanic Apprentice Status 05/26/20 25 1 CLOSED Fetus Data First Name Last Name Admitted to NICU Weight (g) Sex Living Outcome Pediatric Complications Fetus ID Race Codes Race Delivery Type F Full Term [id number] Vaginal Delivery Bao Calculation Initial Bao Date Initial Exam Date Initial Exam Provider Initial Ultrasound Date Last Menstrual Period Date Ultra Sound Weeks Gestation 0 Eighteen To Twenty Week Bao Update Ultra Sound Date Fundal Height At Umbil Quickening Date Ultra Sound Latest Weeks Gestation Final Bao Confirmed By Final Bao Confirmed Date Final Bao Date Ultra Sound Latest Days Gestation 0 0 Menstrual History Last Menstrual Date Menses Monthly On Bcp Conception Prior Menses Frequency Hcg Plus Date Menarche Onset Age Delivery Information Delivery Date Delivery Type Labor Anesthesia Weeks Gestation Incision Type Labor Labor Length Hrs Delivered By Post Complications Tubal Sterilization Discharge Date Comments 1 Discharge Information Feeding Method Contraceptive Method Maternal HG B and HCT Levels Ob Episode Information Episode Created Date Number of Fetuses Patient Bloodtype Patient rh Status Prepregnancy Weight lbs Domestic Partner Domestic Partner Phone Father Name Piano Mechanic Apprentice Status 05/26/20 1 CLOSED Fetus Data First Name Last Name Admitted to NICU Weight (g) Sex Living Outcome Pediatric Complications Fetus ID Race Codes Race Delivery Type M Full Term [id number] Vaginal Delivery Bao Calculation Initial Bao Date Initial Exam Date Initial Exam Provider Initial Ultrasound Date Last Menstrual Period Date Ultra Sound Weeks Gestation 0 Eighteen To Twenty Week Bao Update Ultra Sound Date Fundal Height At Umbil Quickening Date Ultra Sound Latest Weeks Gestation Final Bao Confirmed By Final Bao Confirmed Date Final Bao Date Ultra Sound Latest Days Gestation 0 0 Menstrual History Last Menstrual Date Menses Monthly On Bcp Conception Prior Menses Frequency Hcg Plus Date Menarche Onset Age Delivery Information Delivery Date Delivery Type Labor Anesthesia Weeks Gestation Incision Type Labor Labor Length Hrs Delivered By Post Complications Tubal Sterilization Discharge Date Comments 9 Discharge Information Feeding Method Contraceptive Method Maternal HG B and HCT Levels Ob Episode Information Episode Created Date Number of Fetuses Patient Bloodtype Patient rh Status Prepregnancy Weight lbs Domestic Partner Domestic Partner Phone Father Name Piano Mechanic Apprentice Status 05/26/20 1 CLOSED Fetus Data First Name Last Name Admitted to NICU Weight (g) Sex Living Outcome Pediatric Complications Fetus ID Race Codes Race Delivery Type M Full Term [id number] Vaginal Delivery Bao Calculation Initial Bao Date Initial Exam Date Initial Exam Provider Initial Ultrasound Date Last Menstrual Period Date Ultra Sound Weeks Gestation 0 Eighteen To Twenty Week Bao Update Ultra Sound Date Fundal Height At Umbil Quickening Date Ultra Sound Latest Weeks Gestation Final Bao Confirmed By Final Bao Confirmed Date Final Bao Date Ultra Sound Latest Days Gestation 0 0 Menstrual History Last Menstrual Date Menses Monthly On Bcp Conception Prior Menses Frequency Hcg Plus Date Menarche Onset Age Delivery Information Delivery Date Delivery Type Labor Anesthesia Weeks Gestation Incision Type Labor Labor Length Hrs Delivered By Post Complications Tubal Sterilization Discharge Date Comments 7 Discharge Information Feeding Method Contraceptive Method Maternal HG B and HCT Levels
--- OUTSIDE RECORDS SUMMARY | 2025-05-28 13:56 | XMS_ITS | Clinical Summary ---
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 Gender Identity Not on file Sexual Orientation Not on file Plan of Treatment Health Maintenance Due Date Last Done Comments Cervical Cancer Screening 1986 Depression Screening 1986 Hepatitis C Screening 1986 DTaP/Tdap/Td Vaccine (5 - Tdap) 06/28/1999 06/27/1999, 04/24/1991, 04/24/1991, Additional history exists Regular Well Visit/Exam 18-64 2004 HPV Vaccines (1 - 3-dose SCDM series) 2013 Influenza Vaccine (#1) 2025 , 05/27/2015, 05/25/2014, Additional history exists Varicella Vaccines Completed 04/24/1991, 08/22/1987 Hepatitis B Screening Completed 06/07/1998 , 07/30/1997, 06/29/1997, Additional history exists Pneumococcal vaccine <65 Aged Out No longer eligible based on patient's age to complete this topic Insurance [facility] [employer] [employer] Address: [address] [place] [address] [facility] Care Teams Building Drafting Officer Relationship Specialty Start Date End Date Flor Rodriguez PA [address] [place] [id number] PCP - General Family Practice 09/12/23 Philipp Sherman MD [address] [place] [address] Referring Physician Obstetrics and Gynecology 06/04/22 Leobardo Turk MD [address] [facility] [address] [facility] [address] [place] [address] Referring Physician Obstetrics and Gynecology 06/04/22
--- OUTSIDE RECORDS SUMMARY | 2025-05-28 13:57 | XMS_ITS | Patient Health Record ---
Author Organization [facility] Address [address] [address] Care Team Providers Care Parliamentary Librarian Name Role Phone Valeria Lee Primary Care [...] Status Risk Notes Problem Vitamin D deficiency (56702784) Vitamin D deficiency, unspecified (E55.9) Active confirmed Problem Hypothyroidism (22073638) Hypothyroidism, unspecified (E03.9) Active confirmed Problem Obstructive sleep apnea syndrome (disorder) (21904947) Obstructive sleep apnea (adult) (pediatric) (G47.33) Active confirmed Problem Obesity (912523475) Obesity, unspecified (E66.9) Active confirmed Problem Autoimmune thyroiditis (13402268) Autoimmune thyroiditis (E06.3) Active confirmed 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) Active confirmed Vital Signs Heart Rate 72 /min 08/28/2024 Respiratory Rate 12 /min 08/28/2024 Blood pressure diastolic 72 mm Hg 08/28/2024 Height 63 in 08/28/2024 Blood pressure systolic 120 mm Hg 08/28/2024 Weight 205 lbs 08/28/2024 BMI 36.31 kg/m2 08/28/2024 Encounters Encounter Location Date Provider Diagnosis [facility], [facility] - Valeriavarsha Lee [address] [place] [address] 07/30/2024 Valeria Lee Insulin resistance, unspecified E88.819 ; Obesity, unspecified E66.9 ; Autoimmune thyroiditis E06.3 ; Other fatigue R53.83 ; Vitamin D deficiency, unspecified E55.9 ; Dietary counseling and surveillance Z71.3 and Other ovarian dysfunction E28.8 [facility] [employer] [facility] [address] [place] [address] 08/06/2024 Valeria Lee [facility], [facility] - Valeria [employer] [address] [place] [address] 08/17/2024 Valeria Lee [employer] [facility] [address] [place] [address] 08/17/2024 Valeria Lee Hypothyroidism, unspecified E03.9 [employer] [employer] [facility] [address] [place] [address] 08/17/2024 Valeria Lee Hypothyroidism, unspecified E03.9 [facility], [facility] - Valeria Lee [address] [place] [address] 09/02/2024 Valeria Lee Impaired fasting glucose R73.01 [employer] [employer] [address] [place] [address] 09/04/2024 Valeria Lee [facility], [facility] - Valeria Lee [address] [place] [address] 08/28/2024 Valeria Lee Obesity, unspecified E66.9 ; [...] with intent to titrate- Send prescription to [facility] 3. Polycystic Ovary Syndrome (PCOS)- Offer [...] Date Coverage End Date Ney [address] [place] [address] [id number] Sammi Carnes Self - patient is the insured Medical (General) History Medical History History ICD Code thyroid issues PCOS
== END 2025-05-28 13:53 | disposition home or self-care (01) ==
PROVIDERS: PCP Physician Assistant Medical; Visit Provider Physician Assistant
DX: N13.30 Unspecified hydronephrosis (principal)
CPT/HCPCS: 78708; A9562; J1938

== ENCOUNTER 2025-06-25 14:21 | Outpatient (CLI) | payer BC, SELFPAY ==
--- NOTE | ~2025-06-25 | CT_ITS ---
EXAMINATION:CT chest high resolution wo ky DATE: 06/25/2025 14:40 INDICATION: Chest pain. TECHNIQUE: Computed tomography (CT) of the chest was performed without intravenous contrast. Automated exposure control and iterative reconstruction technique were employed. The dose-length product (DLP) was 291.29 mGy-cm. COMPARISON: Chest CT 10/29/2022 FINDINGS: There is mild scarring at the lung apices. Calcified right lung nodules are consistent with old granulomatous disease. There is mild atelectasis bilaterally. No bronchiectasis or honeycombing. No pleural effusion. The heart size is normal. No pericardial effusion. There is diffuse hepatic steatosis. There are changes of cholecystectomy. There is mild thoracic spondylosis. IMPRESSION: 1. Diffuse hepatic steatosis. Reviewed, dictated and finalized at location E. S SOAKER
== END 2025-06-25 14:22 | disposition home or self-care (01) ==
LOC: MICIMG 14:22
PROVIDERS: PCP Physician Assistant Medical; Visit Provider Physician Assistant Medical
DX: K76.0 Fatty (change of) liver, not elsewhere classified (principal); R07.9 Chest pain, unspecified; R10.A0 Flank pain, unspecified side
CPT/HCPCS: 71250

== ENCOUNTER 2025-07-21 09:43 | Outpatient (CLI) | payer BC, SELFPAY ==
--- NOTE | ~2025-07-21 | US_ITS ---
US soft tissue abdomen 07/21/2025 10:04 Indication: Generalized abdominal pain. Palpable area right side of the abdomen. Procedure: High-resolution Limited ultrasound of the right abdomen in the area palpable concern Comparison: No prior studies for comparison. Findings: Normal heterogeneous soft tissue in the area palpable concern in the right abdomen. No discrete mass identified. Impression: 1: Normal soft tissue ultrasound of the right abdomen and the area palpable concern. Reviewed, dictated and finalized at location O. MAKER Impression: 1: Normal soft tissue ultrasound of the right abdomen and the area palpable con cern.
== END 2025-07-21 09:44 | disposition home or self-care (01) ==
LOC: MICIMG 09:44
PROVIDERS: PCP Physician Assistant Medical; Visit Provider Nurse Practitioner Adult Health
DX: R10.84 Generalized abdominal pain (principal)
CPT/HCPCS: 76705